=== PATIENT | female | born 1940 | race Caucasian/White ===

== ENCOUNTER → 2020-06-07 11:09 | Outpatient (BNVA) | payer MEDICARE, SELFPAY | PROVIDERS: PCP Internal Medicine; Visit Provider Surgery | DX: R91.1 Solitary pulmonary nodule (principal); Z88.1 Allergy status to other antibiotic agents; Z88.5 Allergy status to narcotic agent; Z88.8 Allergy status to other drugs, medicaments and biological substances; Z79.82 Long term (current) use of aspirin; Z79.899 Other long term (current) drug therapy | CPT/HCPCS: 99205 ==

== ENCOUNTER 2020-06-13 16:17 | Outpatient (REF) | payer MEDICARE, SELFPAY ==
--- NOTE | 2020-06-13 | PFT_ITS ---
Forced vital capacity normal. FEV1 slightly reduced. [id number] and MVV are also slightly reduced. Post bronchodilator therapy, no significant change. Total lung capacity and residual volume normal. Diffusion capacity moderately decreased. CONCLUSION: Mild obstructive airway disorder. No response to bronchodilator therapy. Markedly decreased diffusion capacity may be partly due to COPD/pulmonary emphysema, but may also be due to pulmonary vascular disease or non-pulmonary factors. Clinical correlation recommended. Resting O2 saturation was normal. MD HILDA La/MODL / [id number]
== END 2020-06-13 16:18 | disposition home or self-care (01) ==
LOC: HO.RESP 16:17
PROVIDERS: PCP Internal Medicine; Visit Provider Surgery
DX: R91.1 Solitary pulmonary nodule (principal)
CPT/HCPCS: 94060; 94727; 94729

== ENCOUNTER 2020-07-05 10:43 | Outpatient (REF) | payer MEDICARE, SELFPAY ==
--- NOTE | 2020-07-05 10:54 | XR_ITS ---
EXAMINATION: XR CHEST CLINICAL INFORMATION: Acquired absence of lung. COMPARISON: Chest CTA dated 05/10/2020, PET/CT dated 05/28/2020. TECHNIQUE: 2 views of the chest were obtained. FINDINGS: Postsurgical changes are seen in the right apex with chain sutures and presumed adjacent scarring. The lungs otherwise clear. The heart is unremarkable. An aortic stent graft is seen within the tortuous/ectatic thoracic aorta. XR/XR chest 2V IMPRESSION: Postsurgical changes in the right apex without overt acute cardiopulmonary process.
== END 2020-07-05 10:44 | disposition home or self-care (01) ==
LOC: HO.XRAY 10:43
PROVIDERS: PCP Internal Medicine; Visit Provider Surgery
DX: R91.1 Solitary pulmonary nodule (principal); Z90.2 Acquired absence of lung [part of]; Z79.82 Long term (current) use of aspirin; Z79.899 Other long term (current) drug therapy
CPT/HCPCS: 71046; 99212

== ENCOUNTER → 2020-07-25 14:08 | Outpatient (BNVA) | payer MEDICARE, SELFPAY | PROVIDERS: PCP Internal Medicine; Visit Provider Hospitalist | DX: J44.9 Chronic obstructive pulmonary disease, unspecified (principal); J40 Bronchitis, not specified as acute or chronic; R91.1 Solitary pulmonary nodule; R04.2 Hemoptysis | CPT/HCPCS: 99212 ==

== ENCOUNTER → 2020-09-18 11:08 | Outpatient (BNVA) | payer MEDICARE, SELFPAY | PROVIDERS: PCP Internal Medicine; Visit Provider Hospitalist | DX: Z76.89 Persons encountering health services in other specified circumstances (principal) | CPT/HCPCS: 99212 ==

== ENCOUNTER 2020-09-19 14:03 | Inpatient (IN) | payer MEDICARE, SELFPAY ==
[2020-09-19] VITALS (9 sets, daily range): BP systolic 91–160; BP diastolic 37–75; PULSE 74–100; RESP 16–22; TEMP 36.9–37.4; O2SAT 85–97; BMI 29.5
--- NOTE | ~2020-09-19 | XR_ITS ---
EXAMINATION: XR CHEST CLINICAL INFORMATION: Shortness of breath. Hypoxia. COMPARISON: 07/05/2020 TECHNIQUE: Frontal view of the chest was obtained. FINDINGS: The lungs are well expanded. Bronchial wall thickening with mild interstitial prominence noted. No pleural effusion or pneumothorax. Suture line seen at the right upper lung. The cardiomediastinal silhouette is unchanged. Tortuous aorta with stent graft in place. XR/XR chest 1V IMPRESSION: Bronchial wall thickening with interstitial prominence noted which may represent edema versus small airways infectious/inflammatory process.
--- NOTE | ~2020-09-19 | FL_ITS ---
EXAMINATION: FL BARIUM SWALLOW CLINICAL INFORMATION: Pneumonia. Difficulty swallowing. COMPARISON: Previous chest CT scan most recent September 2020 TECHNIQUE: Barium swallow examination is performed using fluoroscopic evaluation in addition to multiple fluoroscopic spot views. The patient is imaged both upright and prone and using both thick and thin sulfate along with effervescent granules. The patient refused barium tablet. Fluoroscopy time: 1.9 minutes DAP: 11 Gycm2 Images: 61 saved fluoroscopic images. FINDINGS: The swallowing mechanism is normal. No aspiration or penetration is seen. The thoracic esophagus is dilated. There is abnormal esophageal motility with significant retrograde peristalsis. There is narrowing of the distal esophagus at the GE junction. Appearance is suggestive of achalasia. No reflux was observed with the patient in the upright or prone positions. The patient could not roll in the supine position lying down to fully evaluate for reflux. Again, patient refused barium tablet. Aortic stent graft is severe interstitial lung disease is noted.. FL/FL barium swallow IMPRESSION: Markedly dilated thoracic esophagus and abnormal esophageal motility. There is narrowing and beak like appearance of the distal thoracic esophagus at the GE junction. Appearances is suggestive of achalasia. The patient refused administration of barium tablet. There is marked retrograde peristalsis in the esophagus. Gastroesophageal reflux was not observed however the patient could not lie supine.
--- NOTE | ~2020-09-19 | CT_ITS ---
EXAMINATION: CTA CHEST PE STUDY CLINICAL INFORMATION: hemoptysis, hypoxia, elevated DDIMER COMPARISON: No pertinent prior studies are available for comparison. TECHNIQUE: Prior to contrast administration, noncontrast localization images were obtained. After the administration of 100 mL of Omnipaque 350 IV contrast, contiguous thin slice helical images were obtained through the thorax. Reformatted MIP images in the coronal and sagittal planes were obtained at the acquisition workstation. This CT examination was performed using dose optimization techniques as appropriate, variously including the following: *Automated exposure control *Adjustment of mA and/or kV according to patient size (this includes techniques or standardized protocols for targeted exams where dose is matched to indication/reason for exam; i.e. extremities or head) *Use of iterative reconstruction technique DLP: 1270 mGy-cm. FINDINGS: The bolus timing on this study was acceptable for visualization of the pulmonary arterial tree. There are no intraluminal pulmonary arterial filling defects present to suggest central pulmonary embolism. There is new patchy bilateral airspace disease more so in the dependent aspects of the lungs. This is superimposed on extensive emphysematous changes bilaterally. No abnormal pulmonary nodules or masses are appreciated. No significant hilar or mediastinal adenopathy. There is no evidence of pleural effusion or pneumothorax. Aortic stent graft is again noted with appearance similar to the prior study although contrast bolus timing on the current study was not readily opacify the aorta. The esophagus is distended containing air and debris suggesting airspace disease in the lung parenchyma may be due to aspiration. This be clinically correlated. Otherwise the mediastinum is unremarkable. There is no pericardial effusion or pericardial thickening. Limited evaluation of the upper abdominal viscera is unremarkable. CT/CT angio chest PE protocol IMPRESSION: New patchy bilateral airspace disease suggesting infectious etiology or aspiration. Esophagus is distended with air and debris is possible aspiration source. This should be clinically correlated. No evidence for central pulmonary emboli. Known thoracic aortic stent graft and underlying extensive emphysematous changes. VTE: Negative
--- NOTE | 2020-09-19 14:30 | ECG_ITS ---
Test Reason : SHORT OF BREATH Blood Pressure : / mmHG Vent. Rate : 081 BPM Atrial Rate : 081 BPM P-R Int : 170 ms QRS Dur : 108 ms QT Int : 418 ms P-R-T Axes : 078 051 -55 degrees QTc Int : 485 ms Sinus rhythm with Premature atrial complexes T wave abnormality, consider inferior ischemia T wave abnormality, consider anterolateral ischemia Prolonged QT Abnormal ECG No previous ECGs available Referred By: Linh Ventura Electronically Signed By:ALEIDA JALLOH
--- NOTE | 2020-09-19 14:37 | ED.SOB ---
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 She reports she has had a significant decline in her breathing since her nodule resection in June. She has been on oxygen since. She follow with Dr. Arrington at [facility] who saw her yesterday - she was not feeling well & plan was for bronchoscopy. She was found hypoxic to mid 80s on EMS arrival today on her baseline 2L NC. MD elicited complaint: shortness of breath Related Data Home Medications Medication Instructions Recorded Confirmed aspirin 81 mg tablet,delayed 81 mg PO DAILY 06/07/20 09/19/20 release cetirizine 10 mg capsule 10 mg PO DAILY cap 06/07/20 09/19/20 levothyroxine 88 mcg tablet 88 mcg PO DAILY 06/07/20 09/19/20 lifitegrast 5 % eye drops in a 1 drp OPHTHALMIC (EYE) BID 06/07/20 09/19/20 dropperette magnesium glycinate 100 mg tablet 100 mg PO DAILY 06/07/20 09/19/20 mecobalamin (vitamin B12) 1,000 1,000 mcg PO DAILY 06/07/20 09/19/20 mcg chewable tablet pantoprazole 40 mg tablet,delayed 40 mg PO DAILY 06/07/20 09/19/20 release pyridoxine (vitamin B6) 100 mg 50 mg PO BID 06/07/20 09/19/20 tablet turmeric 400 mg capsule mg PO 06/07/20 09/18/20 rivaroxaban 20 mg tablet 20 mg PO DAILY@1700 07/25/20 09/19/20 albuterol sulfate [ProAir HFA] 2 puff INHALATION Q4H PRN 09/19/20 09/19/20 alprazolam 0.25 mg PO BID PRN 09/19/20 09/19/20 carvedilol 6.25 mg PO BID 09/19/20 09/19/20 conjugated estrogens [Premarin] 1.5 g VAGINAL BEDTIME 09/19/20 09/19/20 fluticasone propionate 2 spray INTRANASAL DAILY 09/19/20 09/19/20 tiotropium-olodaterol [Stiolto 2 puff INHALATION DAILY 09/19/20 09/19/20 Respimat] Allergies Allergy/AdvReac Type Severity Reaction Status Date / Time azithromycin Allergy Severe Vomiting Verified 09/18/20 18:49 Morphine Allergy Severe Vomiting Uncoded 09/19/20 14:16 Opiods Allergy Severe Vomiting Uncoded 09/19/20 14:16 percocet Allergy Severe Vomiting Uncoded 09/19/20 14:16 Percodan Allergy Severe Vomiting Uncoded 09/19/20 14:16 Tylenol #3 Allergy Severe Vomiting Uncoded 09/19/20 14:16 Review of Systems Review of Systems: Constitutional: + Fever, No Chills ENT/Mouth: No sore throat, No Rhinorrhea, No Swallowing Difficulty Cardiovascular: No Chest Pain, + SOB, No Orthopnea, No Edema Respiratory: + Cough, + Sputum, No Wheezing, + dyspnea, +hemoptysis Gastrointestinal: + Nausea, No Vomiting, No Diarrhea, No abdominal Pain Genitourinary: No Dysuria, No Urinary Frequency, No Hematuria Musculoskeletal: No joint pain, No Myalgias Skin: No Skin Lesions, No rash Neuro: No Weakness, No Numbness, No Dizziness, +Headache Psych: + Anxiety/Panic, + Depression Heme/Lymph: No Bruising, No Lymphadenopathy Endocrine: No Polyuria, No Polydipsia [facility] Past Medical History Medical History (Updated 09/18/20 @ 18:56 by Maulik Arrington MD) Bronchitis Chronic respiratory failure COPD (chronic obstructive pulmonary disease) Hemoptysis Pneumonia Pulmonary nodule Social History Social History (Updated 07/25/20 @ 14:34 by Saloni Tolliver MA) Alcohol intake: never Smoking Status: Former smoker Use of substances other than those prescribed or required for medical reasons: No Advance Directives: No Advance Directives Information Provided: No Physical Exam Vital Signs: Vital Signs: Last Vital Signs Temp 99.4 F 09/19/20 14:10 Pulse 92 09/19/20 16:04 Resp 22 H 09/19/20 16:04 BP 107/41 L 09/19/20 16:04 Pulse Ox 93 09/19/20 16:04 Body Mass Index 29.5 Appearance: Alert. Oriented X3. Mild respiratory distress. Eyes: Pupils equal, round and reactive to light. ENT: Pharynx normal. Neck: Normal inspection. Neck supple. CVS: Normal heart rate and rhythm. Pulses normal. Respiratory: Mild respiratory distress w/ RR 22 - coarse thoughout, decreased at bilateral bases. Abdomen: Soft and nontender. +BS x4 Skin: Skin warm and dry. Normal skin color. Normal skin turgor. No rashes. Extremities: No lower extremity edema. Negative Izabella's sign. Neuro: Oriented X 3. No motor deficit. No sensory deficit. Course Course Course Narrative: 80 y/o female with O2 dependent COPD, HFpEF, PAF noted on Loop monitor on Xarelto, CAD with recent NSTEMI and PNA admission at [facility] presenting with SOB, productive cough and hypoxia. 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 Concern for ongoing underlying fungal infection. Weight loss, generally feeling unwell for months. Will get EKG, CXR, labs, COVID swab. Anticipate admission. She is saturating 93% on 4L NC, baseline is 2L NC. Reevaluation(s) Reevaluation #1: Troponin elevated 127.6 - EKG Still pending. No chest pain at this time. She is already on ASA, BB and anticoagulation. Known hx CAD on recent cardiac cath. Given hemoptysis, hypoxia will proceed with CT scan with contrast to further evaluate. Will need to be admitted, likely pulm consult and bronch. IV Vanco/Zosyn ordered for ?HCAP vs bronchitis, WBC 17. ?add antifungal, will see what CT scan shows. Signed out to Linh LARA. MDM - SOB/Dyspnea Differential Diagnosis Differential diagnosis: Likely acute exacerbation of chronic obstructive airways disease, pneumonia, pulmonary embolism, pleural effusion and anemia Lab Data Result diagrams: 09/19/20 15:08 09/19/20 15:08 Labs: Lab Results 09/19/20 09/19/20 09/19/20 Range/Units 15:08 15:08 15:08 WBC 17.3 H (4.8-10.8) X10*3/uL RBC 3.93 L (4.20-5.50) X10*6/uL Hgb 9.5 L (12.0-16.0) g/dl Hct 31.1 L (37-47) % MCV 79.1 L (80-98) fL MCH 24.2 L (27.0-33.0) pg MCHC 30.5 L (31.0-35.0) g/dl RDW 15.6 (11.0-16.0) % Plt Count 467 H (160-400) X10*3/uL MPV 10.8 (9.4-12.3) fL Immature Gran % (Auto) 0.6 H (0.0-0.4) % Neut % (Auto) 86.0 H (45-73) % Lymph % (Auto) 5.2 L (20-40) % [place] % (Auto) 7.8 (2-11) % Eos % (Auto) 0.1 (0-4) % Baso % (Auto) 0.3 (0-2) % Lymph # (Auto) 0.9 L (1.2-4.9) X10*3/uL [place] # (Auto) 1.4 H (0.1-1.2) X10*3/uL Eos # (Auto) 0.0 (0.0-0.4) X10*3/uL Baso # (Auto) 0.1 (0.0-0.2) X10*3/uL Abs Immat Gran (auto) 0.10 H (0.00-0.03) X10*3/uL Absolute Neuts (auto) 14.9 H (2.0-8.3) X10*3/uL Absolute Nucleated RBC 0.000 (0.0-0.012) X10*3/uL Nucleated RBC % (auto) 0.0 (0.0-0.2) /100WBC PT (10.8-13.0) SEC INR (0.9-1.1) APTT (24.1-38.0) SEC D-Dimer NG/ML Lactic Acid 1.5 (0.5-2.0) mmol/L Troponin I High Sens 127.6 H (<3.5-17.0) ng/L B-Natriuretic Peptide 559 H (<100) pg/mL Urine Color Urine Appearance Urine pH (5.0-8.0) Ur Specific [place] (1.005-1.025) Urine Protein (NEG-TRACE) MG/DL Urine Glucose (UA) (NEG) MG/DL Urine Ketones (NEG) MG/DL Urine Blood (NEG) Urine Nitrite (NEG) Ur Leukocyte Esterase (NEG) Urine RBC (0) /HPF Urine WBC (0-4) /HPF Ur Squamous Epith Cells /LPF Urine Bacteria /LPF Urine Yeast /HPF Coronavirus (PCR) (Negative) Influenza Type A (PCR) (Negative) Influenza Type B (PCR) (Negative) RSV RNA Qual (PCR) (Negative) 09/19/20 09/19/20 09/19/20 Range/Units 15:43 15:43 15:51 WBC (4.8-10.8) X10*3/uL RBC (4.20-5.50) X10*6/uL Hgb (12.0-16.0) g/dl Hct (37-47) % MCV (80-98) fL MCH (27.0-33.0) pg MCHC (31.0-35.0) g/dl RDW (11.0-16.0) % Plt Count (160-400) X10*3/uL MPV (9.4-12.3) fL Immature Gran % (Auto) (0.0-0.4) % Neut % (Auto) (45-73) % Lymph % (Auto) (20-40) % [place] % (Auto) (2-11) % Eos % (Auto) (0-4) % Baso % (Auto) (0-2) % Lymph # (Auto) (1.2-4.9) X10*3/uL [place] # (Auto) (0.1-1.2) X10*3/uL Eos # (Auto) (0.0-0.4) X10*3/uL Baso # (Auto) (0.0-0.2) X10*3/uL Abs Immat Gran (auto) (0.00-0.03) X10*3/uL Absolute Neuts (auto) (2.0-8.3) X10*3/uL Absolute Nucleated RBC (0.0-0.012) X10*3/uL Nucleated RBC % (auto) (0.0-0.2) /100WBC PT 19.8 H (10.8-13.0) SEC INR 1.7 H (0.9-1.1) APTT 37.0 (24.1-38.0) SEC D-Dimer 483 NG/ML Lactic Acid (0.5-2.0) mmol/L Troponin I High Sens (<3.5-17.0) ng/L B-Natriuretic Peptide (<100) pg/mL Urine Color YELLOW Urine Appearance CLEAR Urine pH 6.0 (5.0-8.0) Ur Specific [place] 1.025 (1.005-1.025) Urine Protein NEG (NEG-TRACE) MG/DL Urine Glucose (UA) NEG (NEG) MG/DL Urine Ketones NEG (NEG) MG/DL Urine Blood TRACE (NEG) Urine Nitrite NEG (NEG) Ur Leukocyte Esterase NEG (NEG) Urine RBC 0-2 (0) /HPF Urine WBC 0 (0-4) /HPF Ur Squamous Epith Cells 1+ /LPF Urine Bacteria TRACE /LPF Urine Yeast TRACE /HPF Coronavirus (PCR) NEGATIVE (Negative) Influenza Type A (PCR) NEGATIVE (Negative) Influenza Type B (PCR) NEGATIVE (Negative) RSV RNA Qual (PCR) NEGATIVE (Negative) ECG Data Attestation: I personally reviewed and interpreted this ECG as follows: ECG interpretation date: 09/19/20 Interpretation: normal sinus rhythm with PAC's, t-wave inversions in lead II, III, aVF, V3-V6, QTC prolonged 485 Discharge Plan Discharge Prescriptions: No Action Premarin 0.625 mg/gram cream 1.5 g vaginal BEDTIME RF: 0 fluticasone propionate 50 mcg/actuation spray,suspension 2 spray intranasal DAILY RF: 0 alprazolam 0.25 mg Tablet 0.25 mg PO BID PRN (Reason: Anxiety) RF: 0 albuterol sulfate [ProAir HFA] 90 mcg/actuation Hfa Aerosol Inhaler 2 puff INHALATION Q4H PRN (Reason: Respiratory Distress) RF: 0 carvedilol 6.25 mg Tablet 6.25 mg PO BID RF: 0 Stiolto Respimat 2.5-2.5 mcg/actuation Mist 2 puff INHALATION DAILY RF: 0 pantoprazole 40 mg tablet,delayed release (DR/EC) 40 mg PO DAILY RF: 0 levothyroxine 88 mcg tablet 88 mcg PO DAILY RF: 0 Xiidra 5 % dropperette 1 drp ophthalmic (eye) BID RF: 0 aspirin [Adult Low Dose Aspirin] 81 mg tablet,delayed release (DR/EC) 81 mg PO DAILY RF: 0 B12 Active 1,000 mcg tablet,chewable 1,000 mcg PO DAILY RF: 0 turmeric 400 mg capsule PO RF: 0 magnesium glycinate 100 mg tablet 100 mg PO DAILY RF: 0 pyridoxine (vitamin B6) 100 mg tablet 50 mg PO BID RF: 0 Zyrtec 10 mg capsule 10 mg PO DAILY RF: 0 Xarelto 20 mg tablet 20 mg PO DAILY@1700 RF: 0
[2020-09-19 15:52] LABS: MANUAL DIFF FLAG NO
[2020-09-19 15:56] LABS: Basophils Absolute Auto 0.1 X10*3/uL (0.0-0.2); Basophils Percent Auto 0.3 % (0-2); Eosinophils Percent Auto 0.1 % (0-4); Hematocrit 31.1 % (37-47); Hemoglobin 9.5 g/dl (12.0-16.0); Imm Gran Pct Auto 0.6 % (0.0-0.4); Lymphocytes Absolute Auto 0.9 X10*3/uL (1.2-4.9); Lymphocytes Percent Auto 5.2 % (20-40); Mean Corpuscular HGB Conc 30.5 g/dl (31.0-35.0); Mean Corpuscular Hemoglobin 24.2 pg (27.0-33.0); Mean Corpuscular Volume 79.1 fL (80-98); Mean Platelet Volume 10.8 fL (9.4-12.3); Monocytes Absolute Auto 1.4 X10*3/uL (0.1-1.2); Monocytes Percent Auto 7.8 % (2-11); Neutrophils Absolute Auto 14.9 X10*3/uL (2.0-8.3); Platelet Count 467 X10*3/uL (160-400); Red Blood Count 3.93 X10*6/uL (4.20-5.50); Red Cell Distribution Width 15.6 % (11.0-16.0); White Blood Count 17.3 X10*3/uL (4.8-10.8)
[2020-09-19 15:58] LABS: Appearance Urine CLEAR; Color Urine YELLOW; Glucose Urine UA NEG (NEG); Leukocyte Esterase Urine NEG (NEG); Nitrite Urine NEG (NEG); Specific Gravity - Urine 1.025 (1.005-1.025); Urine Blood TRACE (NEG); Urine Ketones NEG (NEG); Urine Protein NEG (NEG-TRACE)
[2020-09-19] MEDS: 0.9 % Sodium Chloride 1,000 ML 999 ML IVCONT (15:58)
[2020-09-19] MEDS: Acetaminophen 325 MG TABLET 650 MG PO (15:59)
[2020-09-19 16:02] LABS: INTERNATIONAL NORM RATIO 1.7 (0.9-1.1); Prothrombin Time 19.8 SEC (10.8-13.0)
[2020-09-19 16:05] LABS: Bacteria Urine TRACE /LPF; RBC Urine 0-2 /HPF (0); Squamous Epithelial Cell Urine 1+ /LPF; WBC Urine 0 /HPF (0-4)
[2020-09-19 16:05] LABS: D Dimer 483 NG/ML
[2020-09-19 16:19] LABS: Lactic Acid 1.5 mmol/L (0.5-2.0)
[2020-09-19] MEDS: ondansetron HCL 4 MG/2 ML VIAL IVPUSH (16:27)
[2020-09-19] MEDS: Piperacillin Sodium/Tazobactam 4.5 GM in 0.9 % Sodium Chloride 100 ML IV (16:27)
[2020-09-19 16:36] LABS: B Type Natriuretic Peptide 559 pg/mL (<100); Troponin-I High Sensitivity 127.6 ng/L (<3.5-17.0)
[2020-09-19 16:42] LABS: Influenza A PCR NEGATIVE (Negative); Influenza B PCR NEGATIVE (Negative); Resp Syncy Virus RNA Qual PCR NEGATIVE (Negative); SARS COV2 PCR INHOUSE NEGATIVE (Negative)
[2020-09-19] MEDS: methylPREDNISolone Sod Succ/PF 125 MG/2 ML VIAL 80 MG IVPUSH (17:06)
[2020-09-19] MEDS: vancomycin HCL 1,000 MG in 0.9 % Sodium Chloride 250 ML 270 MG IV (17:09)
[2020-09-19] MEDS: Albuterol Sulfate (0.083%) 2.5 MG/3 ML VIAL.NEB 5 MG INHALE (17:40)
[2020-09-19 19:08] LABS: Alanine Aminotransferase 7 U/L (0-31); Albumin Level 3.2 g/dL (3.5-5.0); Alkaline Phosphatase 44 U/L (39-117); Anion Gap 11 (12-20); Aspartate Amino Transferase 18 U/L (5-31); Bilirubin Direct 0.4 mg/dL (0.0-0.5); Bilirubin Total 0.6 mg/dL (0.0-1.0); Blood Urea Nitrogen 11 mg/dL (9-16); Calcium 7.8 mg/dL (8.4-10.2); Carbon Dioxide 27 mmol/L (22-29); Chloride 103 mmol/L (96-108); Creatinine Clr Calc Pharmacy 63.2; Estimated Glomerular Filt Rate > 60; Glucose Random 120 mg/dL (60-115); Magnesium 1.8 mg/dL (1.6-2.6); Potassium 4.3 mmol/L (3.3-5.1); Sodium 137 mmol/L (135-145); Total Protein 5.8 g/dL (6.5-8.0)
[2020-09-19 19:27] LABS: Procalcitonin 0.94 ng/mL
--- NOTE | 2020-09-19 19:27 | PC.NURSE ---
Report taken from amanda Weeks RN resuming care. Pt off unit for CTA. Plan for repeat Trop and T&S when pt returns.
[2020-09-19] MEDS: iohexoL 350 MG/ML 100 ML INFUS..BTL IV (19:42)
--- NOTE | 2020-09-19 20:15 | PC.NURSE ---
Pt returns from CT on hospital bed without incident. Pt resting in NAD on O2 via NC @ 4 lpm satting @ 97%. Per pt, her normal O2 sat while on O2 @ 2 lpm while at home is 92%. Pt decreased to 2.5 lpm while this RN remains in room to monitor O2 sat. O2 sat remains @ 94%. Pt reports no SOB at this time, states her breathing is at her baseline. Pt requesting food/drink, per SUBSTATION OPERATOR APPRENTICE, pt is able to eat. Pt provided with Tuna and hot tea per request. VSS at this time. Repeat Troponin obtained and sent. Continue to monitor.
[2020-09-19 20:55] LABS: Troponin-I High Sensitivity 460.5 ng/L (<3.5-17.0)
--- NOTE | 2020-09-19 21:41 | ECG_ITS ---
Test Reason : SOB Blood Pressure : / mmHG Vent. Rate : 072 BPM Atrial Rate : 072 BPM P-R Int : 192 ms QRS Dur : 110 ms QT Int : 458 ms P-R-T Axes : 047 042 -52 degrees QTc Int : 501 ms Sinus rhythm with Premature atrial complexes T wave abnormality, consider inferior ischemia T wave abnormality, consider anterolateral ischemia Prolonged QT Abnormal ECG When compared with ECG of 19-SEP-2020 17:06, No significant change was found Referred By: Linh Ventura Electronically Signed By:ALEIDA JALLOH
--- NOTE | 2020-09-19 22:16 | PC.NURSE ---
SOLAR DEVELOPMENT ENGINEER at bedside discussing treatment and plan of care due to elevated Troponin. Plan for repeat Trop and admission. VSS. Pt denies CP/SOB at this time, pt offering no complaints, resting in bed, watching TV in NAD. Call harvey within reach, continue to monitor.
[2020-09-19 23:01] LABS: Troponin-I High Sensitivity 344.3 ng/L (<3.5-17.0)
--- NOTE | 2020-09-19 23:27 | P.HPHOSP_ITS ---
History of Present Illness Date of Service: 09/19/20 Chief Complaint: Shortness of breath 80-year-old female with a past medical history of hypertension, hyperlipidemia, COPD on 2 L of home oxygen, diastolic CHF,AAA s/pEVAR, history of right lung nodule resection-pathology consistent with fungal; CAD, recent NSTEMI with admission to [facility] and had cardiac catheterization on 09/06/2020-medically managed with heparin drip for 48 hours presented to the hospital with a chief complaint of shortness of breath and generalized weakness. Denies any chest pain palpitations lightheadedness or dizziness. After patient was seen by Dr. Murphy Willingham from pulmonology-plan for bronchoscopy. Patient also complains of cough with brownish sputum and noticed blood-tinged sputum as well. Review of all other systems is negative except mentioned above ER course: Per ER team patient's COVID negative, CT angio showed no evidence of pulmonary embolism but noticed patchy infiltrates consistent with pneumonia. Patient troponin was elevated; EKG was nonischemic except for T-wave inversions in inferior leads and V3 V4 V5; ER team spoke to Dr. ko mahajan from Cardiology who recommended admission to the [facility] an echocardiogram in the morning. Follow-up troponin is trending down. [facility] Medical History (Updated 09/18/20 @ 18:56 by Maulik Arrington MD) Bronchitis Chronic respiratory failure COPD (chronic obstructive pulmonary disease) Hemoptysis Pneumonia Pulmonary nodule Social History (Updated 07/25/20 @ 14:34 by Saloni Tolliver MA) Alcohol intake: never Smoking Status: Former smoker Use of substances other than those prescribed or required for medical reasons: No Advance Directives: No Advance Directives Information Provided: No Meds Allergies Allergy/AdvReac Type Severity Reaction Status Date / Time azithromycin Allergy Severe Vomiting Verified 09/18/20 18:49 Morphine Allergy Severe Vomiting Uncoded 09/19/20 14:16 Opiods Allergy Severe Vomiting Uncoded 09/19/20 14:16 percocet Allergy Severe Vomiting Uncoded 09/19/20 14:16 Percodan Allergy Severe Vomiting Uncoded 09/19/20 14:16 Tylenol #3 Allergy Severe Vomiting Uncoded 09/19/20 14:16 Home Medications Medication Instructions Recorded Confirmed Type aspirin 81 mg tablet,delayed 81 mg PO DAILY 06/07/20 09/19/20 History release cetirizine 10 mg capsule 10 mg PO DAILY cap 06/07/20 09/19/20 History levothyroxine 88 mcg tablet 88 mcg PO DAILY 06/07/20 09/19/20 History lifitegrast 5 % eye drops in a 1 drp OPHTHALMIC (EYE) BID 06/07/20 09/19/20 History dropperette magnesium glycinate 100 mg tablet 100 mg PO DAILY 06/07/20 09/19/20 History mecobalamin (vitamin B12) 1,000 1,000 mcg PO DAILY 06/07/20 09/19/20 History mcg chewable tablet pantoprazole 40 mg tablet,delayed 40 mg PO DAILY 06/07/20 09/19/20 History release pyridoxine (vitamin B6) 100 mg 50 mg PO BID 06/07/20 09/19/20 History tablet turmeric 400 mg capsule mg PO 06/07/20 09/18/20 History rivaroxaban 20 mg tablet 20 mg PO DAILY@1700 07/25/20 09/19/20 History albuterol sulfate [ProAir HFA] 2 puff INHALATION Q4H PRN 09/19/20 09/19/20 History alprazolam 0.25 mg PO BID PRN 09/19/20 09/19/20 History carvedilol 6.25 mg PO BID 09/19/20 09/19/20 History conjugated estrogens [Premarin] 1.5 g VAGINAL BEDTIME 09/19/20 09/19/20 History fluticasone propionate 2 spray INTRANASAL DAILY 09/19/20 09/19/20 History tiotropium-olodaterol [Stiolto 2 puff INHALATION DAILY 09/19/20 09/19/20 History Respimat] Physical Exam Vital Signs and Narrative: Vital Signs: Last Vital Signs Temp 98.5 F 09/19/20 18:39 Pulse 74 09/19/20 22:15 Resp 16 09/19/20 22:15 BP 127/54 L 09/19/20 22:15 Pulse Ox 97 09/19/20 22:15 Body Mass Index 29.5 Gen: Appears be in no acute distress; breathing comfortably on baseline supplemental oxygen of 2 L by nasal cannula. HEENT: NCAT, Moist mucosa. Pulmonary: Course breath sounds, fair air entry CVS: Normal S1-S2 Abdomen: BS+, Soft, Nontender Extremities: Warm well perfused Neuro: Alert and awake. Results Labs CBC and Chem 7: 09/19/20 15:08 09/19/20 18:38 Labs: Laboratory Results - last 24 hr 09/19/20 09/19/20 09/19/20 15:08 15:08 15:08 MCV 79.1 L MCH 24.2 L MCHC 30.5 L RDW 15.6 Plt Count 467 H MPV 10.8 Immature Gran % (Auto) 0.6 H Neut % (Auto) 86.0 H Lymph % (Auto) 5.2 L [place] % (Auto) 7.8 Eos % (Auto) 0.1 Baso % (Auto) 0.3 Lymph # (Auto) 0.9 L [place] # (Auto) 1.4 H Eos # (Auto) 0.0 Baso # (Auto) 0.1 Abs Immat Gran (auto) 0.10 H Absolute Neuts (auto) 14.9 H Absolute Nucleated RBC 0.000 Nucleated RBC % (auto) 0.0 PT INR APTT D-Dimer Anion Gap Cancelled Estim Creat Clear Calc Cancelled Estimated GFR Cancelled Random Glucose Cancelled Lactic Acid 1.5 Calcium Cancelled Magnesium Cancelled Total Bilirubin Cancelled Direct Bilirubin Cancelled AST Cancelled ALT Cancelled Alkaline Phosphatase Cancelled Troponin I High Sens B-Natriuretic Peptide Total Protein Cancelled Albumin Cancelled Procalcitonin Urine Color Urine Appearance Urine pH Ur Specific [place] Urine Protein Urine Glucose (UA) Urine Ketones Urine Blood Urine Nitrite Ur Leukocyte Esterase Urine RBC Urine WBC Ur Squamous Epith Cells Urine Bacteria Urine Yeast Coronavirus (PCR) Influenza Type A (PCR) Influenza Type B (PCR) RSV RNA Qual (PCR) 09/19/20 09/19/20 09/19/20 15:08 15:08 15:43 MCV MCH MCHC RDW Plt Count MPV Immature Gran % (Auto) Neut % (Auto) Lymph % (Auto) [place] % (Auto) Eos % (Auto) Baso % (Auto) Lymph # (Auto) [place] # (Auto) Eos # (Auto) Baso # (Auto) Abs Immat Gran (auto) Absolute Neuts (auto) Absolute Nucleated RBC Nucleated RBC % (auto) PT 19.8 H INR 1.7 H APTT 37.0 D-Dimer 483 Anion Gap Estim Creat Clear Calc Estimated GFR Random Glucose Lactic Acid Calcium Magnesium Total Bilirubin Direct Bilirubin AST ALT Alkaline Phosphatase Troponin I High Sens 127.6 H B-Natriuretic Peptide 559 H Total Protein Albumin Procalcitonin Cancelled Urine Color Urine Appearance Urine pH Ur Specific [place] Urine Protein Urine Glucose (UA) Urine Ketones Urine Blood Urine Nitrite Ur Leukocyte Esterase Urine RBC Urine WBC Ur Squamous Epith Cells Urine Bacteria Urine Yeast Coronavirus (PCR) Influenza Type A (PCR) Influenza Type B (PCR) RSV RNA Qual (PCR) 09/19/20 09/19/20 09/19/20 15:43 15:51 18:38 MCV MCH MCHC RDW Plt Count MPV Immature Gran % (Auto) Neut % (Auto) Lymph % (Auto) [place] % (Auto) Eos % (Auto) Baso % (Auto) Lymph # (Auto) [place] # (Auto) Eos # (Auto) Baso # (Auto) Abs Immat Gran (auto) Absolute Neuts (auto) Absolute Nucleated RBC Nucleated RBC % (auto) PT INR APTT D-Dimer Anion Gap 11 L Estim Creat Clear Calc 63.2 Estimated GFR > 60 Random Glucose 120 H Lactic Acid Calcium 7.8 L Magnesium 1.8 Total Bilirubin 0.6 Direct Bilirubin 0.4 AST 18 ALT 7 Alkaline Phosphatase 44 Troponin I High Sens B-Natriuretic Peptide Total Protein 5.8 L Albumin 3.2 L Procalcitonin Urine Color YELLOW Urine Appearance CLEAR Urine pH 6.0 Ur Specific [place] 1.025 Urine Protein NEG Urine Glucose (UA) NEG Urine Ketones NEG Urine Blood TRACE Urine Nitrite NEG Ur Leukocyte Esterase NEG Urine RBC 0-2 Urine WBC 0 Ur Squamous Epith Cells 1+ Urine Bacteria TRACE Urine Yeast TRACE Coronavirus (PCR) NEGATIVE Influenza Type A (PCR) NEGATIVE Influenza Type B (PCR) NEGATIVE RSV RNA Qual (PCR) NEGATIVE 09/19/20 09/19/20 09/19/20 18:38 20:04 22:15 MCV MCH MCHC RDW Plt Count MPV Immature Gran % (Auto) Neut % (Auto) Lymph % (Auto) [place] % (Auto) Eos % (Auto) Baso % (Auto) Lymph # (Auto) [place] # (Auto) Eos # (Auto) Baso # (Auto) Abs Immat Gran (auto) Absolute Neuts (auto) Absolute Nucleated RBC Nucleated RBC % (auto) PT INR APTT D-Dimer Anion Gap Estim Creat Clear Calc Estimated GFR Random Glucose Lactic Acid Calcium Magnesium Total Bilirubin Direct Bilirubin AST ALT Alkaline Phosphatase Troponin I High Sens 460.5 H D 344.3 H B-Natriuretic Peptide Total Protein Albumin Procalcitonin 0.94 Urine Color Urine Appearance Urine pH Ur Specific [place] Urine Protein Urine Glucose (UA) Urine Ketones Urine Blood Urine Nitrite Ur Leukocyte Esterase Urine RBC Urine WBC Ur Squamous Epith Cells Urine Bacteria Urine Yeast Coronavirus (PCR) Influenza Type A (PCR) Influenza Type B (PCR) RSV RNA Qual (PCR) Imaging Radiologist's Impressions: Impressions Chest X-Ray 09/19/20 14:30 IMPRESSION: Bronchial wall thickening with interstitial prominence noted which may represent edema versus small airways infectious/inflammatory process. Chest CTA 09/19/20 16:49 IMPRESSION: New patchy bilateral airspace disease suggesting infectious etiology or aspiration. Esophagus is distended with air and debris is possible aspiration source. This should be clinically correlated. No evidence for central pulmonary emboli. Known thoracic aortic stent graft and underlying extensive emphysematous changes. VTE: Negative Assessment and Plan (1) Pneumonia: Qualifiers: Laterality: right Lung location: upper lobe of lung Pneumonia type: due to unspecified organism Qualified Code(s): J18.9 - Pneumonia, unspecified organism Status: Acute 80-year-old female with a past medical history of hypertension, hyperlipidemia, atrial fibrillation on Xarelto, diastolic CHF, CAD-recent NSTEMI/cardiac catheterization on 09/06/2020; history of lung nodule with pathology report being fungal infection; AAA status post EVAR presented to the hospital today with a chief complaint of generalized weakness/increased s hortness of breath/cough with brownish sputum and occasional blood-tinged sputum. Noted to have pneumonia on the CT scan admitted to the hospital for further management. Health-care associated pneumonia: Will continue the patient on vanc and Zosyn Patient has history of fungal infection-will consult ID for further recommendations. Will also consult pulmonology for possible bronchoscopy. COVID-19 negative Blood-tinged sputum: Likely from retching. H&H stable. Will continue to monitor. Elevated troponins: Patient had recent NSTEMI and cardiac catheterization on 09/06/2020. Medically managed with heparin drip at [facility]. Currently troponin trending down. High troponins on presentation-unclear if trending down from NSTEMI from August 2020. Patient currently chest pain-free. ER team discussed with Cardiology and recommended admission to [facility]. Also mentioned can hold Xarelto given question hemoptysis. Atrial fibrillation: Currently rate controlled. Patient received Xarelto on 09/19/20. Will hold the dose on 09/20/2020 and evaluated by Cardiology in the morning. Also patient might need bronchoscopy. Diastolic CHF: Currently stable. Continue home medications. For all other chronic conditions, home medications will be continued Full code
[2020-09-20] VITALS (10 sets, daily range): BP systolic 140–173; BP diastolic 58–79; PULSE 71–89; RESP 15–21; TEMP 36.6–37; O2SAT 94–99
[2020-09-20] MEDS: 0.9 % Sodium Chloride Flush 3 ML SYRINGE IVFLUSH ×3 (00:15→16:26)
[2020-09-20] MEDS: Piperacillin Sodium/Tazobactam 3.375 GM in 0.9 % Sodium Chloride 50 ML IV ×5 (00:16→23:39)
--- NOTE | 2020-09-20 00:20 | PC.NURSE ---
Zosyn infusing per OCT. Pt scheduled for Vanco @ 2329 but recently received it 1829, this RN unable to remove it from the pyxis at this time. Pt assisted OOB and onto commode, voiding easily. Hospitalist at bedside for eval. VSS. Continue to monitor.
--- NOTE | 2020-09-20 00:36 | PC.NURSE ---
Pharmacy contacted regarding second dose of Vanco. Pt also requesting PM Coreg, pharmacy aware, plan to adjust order so pt does not miss PM dose.
[2020-09-20] MEDS: carvediloL 6.25 MG TABLET PO ×3 (01:04→20:54)
--- NOTE | 2020-09-20 05:38 | PC.NURSE ---
Medicated with ABX per OCT. Pt resting easily in bed, offers no complaints at this time. Pt speaking in full sentences in NAD. VSS. Continue to monitor.
--- NOTE | 2020-09-20 06:32 | CA_ITS ---
Transthoracic Echocardiogram Patient (Last, First, Middle): Monica Stewart, Gender: Female Date of : 1940 Age: 80 Procedure Date: 09/20/2020 Procedure Type: Transthoracic Echocardiogram Location: ER Height: 162.56 cm Weight: 78.02 kg BSA: 1.83 m2 Heart Rate: bpm BP: 140 / 58 mmHg Life [employer] Specialist: ARPIT Referring MD: Jules Fletcher MD Symptoms: high troponin Study Quality: Fair ECG Rhythm: Sinus Conclusions: - The left ventricular systolic function is mildly decreased. The visually estimated ejection fraction is between 45-50%. - The apical septum and mid inferoseptal segments are hypokinetic. - The left atrium is severely dilated. - There is mild aortic valve stenosis. - There is severe mitral annular calcification. - Mild pulmonary hypertension is present. Findings Left Ventricle Normal left ventricular cavity size. There is mildly increased left ventricular wall thickness. The left ventricular systolic function is mildly decreased. The visually estimated ejection fraction is between 45-50%. There is evidence of regional wall motion abnormalities. E/E prime ratio is >15, consistent with elevated filling pressures. Evidence suggests grade II (moderate) diastolic dysfunction. Focal hypertrophy of the basal septum. Wall Motion Rest Echo Findings The apical septum and mid inferoseptal segments are hypokinetic. Right Ventricle Normal right ventricular cavity size and systolic function. Atria The left atrium is severely dilated. The right atrium is normal in size. Aortic Valve There is moderate calcification of the aortic valve. There is mild aortic valve stenosis. The peak aortic velocity is 2.59 m/s with a calculated peak gradient of 27 mmHg. The mean gradient is 15 mmHg. The aortic valve area is 1.75 cm2. There is mild aortic valve regurgitation. Mitral Valve There is severe mitral annular calcification. There is mild mitral valve regurgitation. Mean gradient across the mitral valve 7 mm Hg at 65/Min. Doubt any significant mitral stenosis. Pulmonic Valve The pulmonic valve was not well visualized. Tricuspid Valve There is trace tricuspid valve regurgitation. The right ventricular systolic pressure is 44 mmHg. Mild pulmonary hypertension is present. Great Vessels The asc aorta and aortic arch are normal in size. Venous The inferior vena cava is normal in size and collapses greater than 50% with inspiration. Pericardium/Pleural There is no evidence of pericardial effusion. Prior Study Comparison No prior study available for comparison. Measurements 2D Linear Measurements IVSd: 1.26 0.6-0.9/0.6-1.0 cm LVIDd: 3.45 3.9-5.3/4.2-5.9 cm LVIDd Index: 1.89 2.4-3.2/2.2-3.1 cm/m2 LVIDs: 2.38 2.0-3.6 cm LVPWd: 1.25 0.7-1.1 cm Ao Root: 3.50 2.1-3.5 cm LA Diam: 4.60 2.7-3.8/3.0-4.0 cm LAIDs Index: 2.51 1.5-2.3 cm/m2 LV Mass: 177.47 67-162/88-224 g LV Mass Index: 96.98 43-95/49-115 g/m2 LVOT Diam: 2.00 3.0+(-)1.3 cm 2D Systolic Function EF 4C: 53.30 >55% EF 2C: 45.00 >55% EF BiP: 49.90 >55% Mitral Valve MV VTI: 0.52 MV Pk Wei: 1.94 MV Mn Wei: 1.21 MV Pk Grad: 15.00 MV Mn Grad: 7.00 MV Pk E: 2.14 MV PK A: 1.08 MV Decel Time: 175.00 E/A: 2.00 E'Lateral: 6.53 E'Medial: 3.70 E/E' Med: 57.80 E/E' Lat: 32.80 PHT: 77.00 MVA PHT: 2.86 MVA Continuity: 2.04 Decel Arthur: 7.37 Aortic Valve AoV Pk Wei: 2.59 AoV Mn Wei: 1.82 AoV VTI: 0.61 AoV Pk Grad: 27.00 Aov Mn Grad: 15.00 MIHAI Cont.VTI: 1.75 AI Pk Wei: 4.13 AI Arthur: 2.98 LVOT LVOT Pk Wei: 1.42 LVOT Mn Wei: 0.93 LVOT VTI: 0.34 LVOT Pk Grad: 8.00 LVOT Mn Grad: 4.00 LVOT Diam: 2.00 LVOT Area: 3.14 Diastolic Function MV Pk E: 2.14 MV Pk A: 1.08 E/A: 2.00 E'Medial: 3.70 E/E' Med: 57.80 E' Laterial: 6.53 E/E' Lat: 32.80 Tricuspid Valve TR Pk Wei: 2.99 TR Pk Grad: 36.00 RA Press: 8.00 RVSP: 44.00 Great Vessels Aorta Ao Root-2D: 3.50 2.0-3.7 cm Ao Asc: 3.40 2.1-3.4 cm Ao Arch: 2.90 Updated in Other Vendor System with Status of Final Gildardo Garay MD electronically signed on 09/20/2020 4:40:10 PM with status of Final
[2020-09-20] MEDS: Levothyroxine Sodium 88 MCG TABLET PO (07:52)
[2020-09-20] MEDS: Aspirin Enteric Coated 81 MG TABLET.DR PO (08:01)
[2020-09-20] MEDS: Loratadine 10 MG TABLET PO (08:01)
--- NOTE | 2020-09-20 09:55 | PM.CNCAR ---
History of Present Illness History of Present Illness Date of Service: 09/20/20 Chief complaint: PNA Narrative: This is a cardiology consultation regarding elevated troponins. She has numerous medical comorbidities. She was recently at [facility] for any ammonia. At that time, it appears that she underwent cardiac catheterization based on an abnormal echocardiogram showing diminished LVEF between 35-45%. At that time, she had 2 vessel disease but she was recommended to just have medical management as she had no angina whatsoever. 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 Overall, from the cardiac standpoint she is not having any chest pain type symptoms. Currently admitting symptoms or shortness of breath and generalized weakness. She also has slight amount of hemoptysis/blood-tinged sputum. Review of Systems Review of Systems: Yes all other systems are reviewed and are negative Constitutional: Constitutional: Reports weakness Cardiovascular: Cardiovascular: Reports as per HPI, Reports no additional cardiovascular complaints, Denies acrocyanosis, Denies cool extremities, Denies painful fingertips, Denies chest pain, Denies chest pain at rest, Denies diaphoresis, Denies syncope, Denies irregular heart rhythm, Denies claudication, Denies leg edema, Denies lightheadedness, Denies palpitations and Reports dyspnea Respiratory: Respiratory: Reports dyspnea Neurologic: Denies syncope and Reports weakness Endocrine: Endocrine: Denies palpitations [facility] Past Medical History Medical History (Updated 09/20/20 @ 10:07 by Gildardo Garay MD) Atherosclerotic cardiovascular disease Bronchitis Chronic heart failure with preserved ejection fraction (HFpEF) Chronic respiratory failure COPD (chronic obstructive pulmonary disease) Descending thoracic aortic aneurysm Hemoptysis PAF (paroxysmal atrial fibrillation) Pneumonia Pulmonary nodule Family History Pertinent family history: No significant family history pertinent. Social History Social History (Updated 07/25/20 @ 14:34 by Saloni Tolliver MA) Alcohol intake: never Smoking Status: Former smoker Use of substances other than those prescribed or required for medical reasons: No Advance Directives: No Advance Directives Information Provided: No Meds Allergies Allergy/AdvReac Type Severity Reaction Status Date / Time azithromycin Allergy Severe Vomiting Verified 09/18/20 18:49 Morphine Allergy Severe Vomiting Uncoded 09/19/20 14:16 Opiods Allergy Severe Vomiting Uncoded 09/19/20 14:16 percocet Allergy Severe Vomiting Uncoded 09/19/20 14:16 Percodan Allergy Severe Vomiting Uncoded 09/19/20 14:16 Tylenol #3 Allergy Severe Vomiting Uncoded 09/19/20 14:16 Home Medications Medication Instructions Recorded Confirmed Type aspirin 81 mg tablet,delayed 81 mg PO DAILY 06/07/20 09/19/20 History release cetirizine 10 mg capsule 10 mg PO DAILY cap 06/07/20 09/19/20 History levothyroxine 88 mcg tablet 88 mcg PO DAILY 06/07/20 09/19/20 History lifitegrast 5 % eye drops in a 1 drp OPHTHALMIC (EYE) BID 06/07/20 09/19/20 History dropperette magnesium glycinate 100 mg tablet 100 mg PO DAILY 06/07/20 09/19/20 History mecobalamin (vitamin B12) 1,000 1,000 mcg PO DAILY 06/07/20 09/19/20 History mcg chewable tablet pantoprazole 40 mg tablet,delayed 40 mg PO DAILY 06/07/20 09/19/20 History release pyridoxine (vitamin B6) 100 mg 50 mg PO BID 06/07/20 09/19/20 History tablet turmeric 400 mg capsule mg PO DAILY 06/07/20 09/18/20 History rivaroxaban 20 mg tablet 20 mg PO DAILY@1700 07/25/20 09/19/20 History albuterol sulfate [ProAir HFA] 2 puff INHALATION Q4H PRN 09/19/20 09/19/20 History alprazolam 0.25 mg PO BID PRN 09/19/20 09/19/20 History carvedilol 6.25 mg PO BID 09/19/20 09/19/20 History conjugated estrogens [Premarin] 1.5 g VAGINAL BEDTIME 09/19/20 09/19/20 History fluticasone propionate 2 spray INTRANASAL DAILY 09/19/20 09/19/20 History tiotropium-olodaterol [Stiolto 2 puff INHALATION DAILY 09/19/20 09/19/20 History Respimat] Physical Exam Vital Signs: Vital Signs: Last Vital Signs Temp 97.9 F 09/20/20 00:17 Pulse 76 09/20/20 08:02 Resp 17 09/20/20 07:57 BP 149/66 H 09/20/20 08:02 Pulse Ox 96 09/20/20 07:57 Body Mass Index 29.5 Const: General: cooperative, comfortable and no acute distress Orientation/consciousness: patient oriented x3 HENMT: Other: Unremarkable Neck: Neck: Yes normal visual inspection Chest: Chest palpation & inspection: normal inspection of the chest Resp: Auscultation: clear to auscultation bilaterally, crackles and no wheezes Cardio: Jugular venous distension: no JVD Palpation: normal PMI Heart sounds: S1 normal heart sound present, S2 normal heart sound present, no gallops, Murmur heart sound present systolic at the apex, at the left sternal border and at the right sternal border and no rubs GI: Palpation (GI): Soft to palpation Back/Spine/Pelvis: Other: unremarkable Skin: General skin exam: no rashes or lesions noted Neuro: General: patient oriented x3 Extrem: General: Yes no clubbing, cyanosis or edema Psych: Mental Status: mental status grossly normal Results Labs and Meds Result diagrams: 09/19/20 15:08 09/19/20 18:38 Lab results: Laboratory Results - last 24 hr 09/19/20 09/19/20 09/19/20 15:08 15:08 15:08 WBC 17.3 H RBC 3.93 L Hgb 9.5 L Hct 31.1 L MCV 79.1 L MCH 24.2 L MCHC 30.5 L RDW 15.6 Plt Count 467 H MPV 10.8 Immature Gran % (Auto) 0.6 H Neut % (Auto) 86.0 H Lymph % (Auto) 5.2 L Bacon % (Auto) 7.8 Eos % (Auto) 0.1 Baso % (Auto) 0.3 Lymph # (Auto) 0.9 L Bacon # (Auto) 1.4 H Eos # (Auto) 0.0 Baso # (Auto) 0.1 Abs Immat Gran (auto) 0.10 H Absolute Neuts (auto) 14.9 H Absolute Nucleated RBC 0.000 Nucleated RBC % (auto) 0.0 PT INR APTT D-Dimer Sodium Cancelled Potassium Cancelled Chloride Cancelled Carbon Dioxide Cancelled Anion Gap Cancelled BUN Cancelled Creatinine Cancelled Estim Creat Clear Calc Cancelled Estimated GFR Cancelled Random Glucose Cancelled Lactic Acid 1.5 Calcium Cancelled Magnesium Cancelled Total Bilirubin Cancelled Direct Bilirubin Cancelled AST Cancelled ALT Cancelled Alkaline Phosphatase Cancelled Troponin I High Sens B-Natriuretic Peptide Total Protein Cancelled Albumin Cancelled Procalcitonin Urine Color Urine Appearance Urine pH Ur Specific [place] Urine Protein Urine Glucose (UA) Urine Ketones Urine Blood Urine Nitrite Ur Leukocyte Esterase Urine RBC Urine WBC Ur Squamous Epith Cells Urine Bacteria Urine Yeast Coronavirus (PCR) Influenza Type A (PCR) Influenza Type B (PCR) RSV RNA Qual (PCR) 09/19/20 09/19/20 09/19/20 15:08 15:08 15:43 WBC RBC Hgb Hct MCV MCH MCHC RDW Plt Count MPV Immature Gran % (Auto) Neut % (Auto) Lymph % (Auto) Bacon % (Auto) Eos % (Auto) Baso % (Auto) Lymph # (Auto) Bacon # (Auto) Eos # (Auto) Baso # (Auto) Abs Immat Gran (auto) Absolute Neuts (auto) Absolute Nucleated RBC Nucleated RBC % (auto) PT 19.8 H INR 1.7 H APTT 37.0 D-Dimer 483 Sodium Potassium Chloride Carbon Dioxide Anion Gap BUN Creatinine Estim Creat Clear Calc Estimated GFR Random Glucose Lactic Acid Calcium Magnesium Total Bilirubin Direct Bilirubin AST ALT Alkaline Phosphatase Troponin I High Sens 127.6 H B-Natriuretic Peptide 559 H Total Protein Albumin Procalcitonin Cancelled Urine Color Urine Appearance Urine pH Ur Specific [place] Urine Protein Urine Glucose (UA) Urine Ketones Urine Blood Urine Nitrite Ur Leukocyte Esterase Urine RBC Urine WBC Ur Squamous Epith Cells Urine Bacteria Urine Yeast Coronavirus (PCR) Influenza Type A (PCR) Influenza Type B (PCR) RSV RNA Qual (PCR) 09/19/20 09/19/20 09/19/20 15:43 15:51 18:38 WBC RBC Hgb Hct MCV MCH MCHC RDW Plt Count MPV Immature Gran % (Auto) Neut % (Auto) Lymph % (Auto) Bacon % (Auto) Eos % (Auto) Baso % (Auto) Lymph # (Auto) Bacon # (Auto) Eos # (Auto) Baso # (Auto) Abs Immat Gran (auto) Absolute Neuts (auto) Absolute Nucleated RBC Nucleated RBC % (auto) PT INR APTT D-Dimer Sodium 137 Potassium 4.3 Chloride 103 Carbon Dioxide 27 Anion Gap 11 L BUN 11 Creatinine 0.73 Estim Creat Clear Calc 63.2 Estimated GFR > 60 Random Glucose 120 H Lactic Acid Calcium 7.8 L Magnesium 1.8 Total Bilirubin 0.6 Direct Bilirubin 0.4 AST 18 ALT 7 Alkaline Phosphatase 44 Troponin I High Sens B-Natriuretic Peptide Total Protein 5.8 L Albumin 3.2 L Procalcitonin Urine Color YELLOW Urine Appearance CLEAR Urine pH 6.0 Ur Specific [place] 1.025 Urine Protein NEG Urine Glucose (UA) NEG Urine Ketones NEG Urine Blood TRACE Urine Nitrite NEG Ur Leukocyte Esterase NEG Urine RBC 0-2 Urine WBC 0 Ur Squamous Epith Cells 1+ Urine Bacteria TRACE Urine Yeast TRACE Coronavirus (PCR) NEGATIVE Influenza Type A (PCR) NEGATIVE Influenza Type B (PCR) NEGATIVE RSV RNA Qual (PCR) NEGATIVE 09/19/20 09/19/20 09/19/20 18:38 20:04 22:15 WBC RBC Hgb Hct MCV MCH MCHC RDW Plt Count MPV Immature Gran % (Auto) Neut % (Auto) Lymph % (Auto) Bacon % (Auto) Eos % (Auto) Baso % (Auto) Lymph # (Auto) Bacon # (Auto) Eos # (Auto) Baso # (Auto) Abs Immat Gran (auto) Absolute Neuts (auto) Absolute Nucleated RBC Nucleated RBC % (auto) PT INR APTT D-Dimer Sodium Potassium Chloride Carbon Dioxide Anion Gap BUN Creatinine Estim Creat Clear Calc Estimated GFR Random Glucose Lactic Acid Calcium Magnesium Total Bilirubin Direct Bilirubin AST ALT Alkaline Phosphatase Troponin I High Sens 460.5 H D 344.3 H B-Natriuretic Peptide Total Protein Albumin Procalcitonin 0.94 Urine Color Urine Appearance Urine pH Ur Specific [place] Urine Protein Urine Glucose (UA) Urine Ketones Urine Blood Urine Nitrite Ur Leukocyte Esterase Urine RBC Urine WBC Ur Squamous Epith Cells Urine Bacteria Urine Yeast Coronavirus (PCR) Influenza Type A (PCR) Influenza Type B (PCR) RSV RNA Qual (PCR) ECG Attestation: I personally reviewed and interpreted this ECG as follows: Interpretation: EKG with sinus rhythm at 72/Min; anterior as well as inferior T inversions. These are different compared to prior EKG from [facility] in August. Imaging Radiologist's impression: Impressions Chest X-Ray 09/19/20 14:30 IMPRESSION: Bronchial wall thickening with interstitial prominence noted which may represent edema versus small airways infectious/inflammatory process. Chest CTA 09/19/20 16:49 IMPRESSION: New patchy bilateral airspace disease suggesting infectious etiology or aspiration. Esophagus is distended with air and debris is possible aspiration source. This should be clinically correlated. No evidence for central pulmonary emboli. Known thoracic aortic stent graft and underlying extensive emphysematous changes. VTE: Negative Assessment and Plan (1) NSTEMI (non-ST elevated myocardial infarction): Status: Acute (2) Atherosclerotic cardiovascular disease: Status: Acute (3) PAF (paroxysmal atrial fibrillation): Status: Acute (4) Chronic heart failure with preserved ejection fraction (HFpEF): Status: Acute (5) COPD (chronic obstructive pulmonary disease): Qualifiers: COPD type: emphysema Emphysema type: centrilobular Qualified Code(s): J43.2 - Centrilobular emphysema Status: Acute (6) Pneumonia: Qualifiers: Pneumonia type: due to unspecified organism Laterality: right Lung location: upper lobe of lung Qualified Code(s): J18.9 - Pneumonia, unspecified organism Status: Acute (7) Hemoptysis: Status: Acute (8) Descending thoracic aortic aneurysm: Problem details: s/p repair Status: Acute 80-year-old female, vasculopath presenting mainly for pneumonia type symptoms and also having elevated troponins. This could be residual troponin leak from the recent NSTEMI while she was at [facility]. Recurrent NSTEMI is also possible. Cardiac catheterization data reviewed from 09/06/2020; left main-normal; she had 2 vessel disease involving the LAD and RCA. Echocardiogram from [facility] with LVEF 35-45%; distal anteroseptal and inferoseptal severe hypokinesis and apical dyskinesis; severe mitral and calcification and mild aortic valve calcification. As she had no anginal-type symptoms, she was recommended to be on optimal medical therapy. Treat for stable CAD with aspirin, beta-blockers and high-dose statins. If no major hemoptysis, then start back on the Xarelto. We will repeat echocardiogram to see her EF as well as wall motion.
--- NOTE | 2020-09-20 16:52 | W.PM.IDCN ---
History of Present Illness Data of Consult Service Date: 09/20/20 Requesting physician: Guillermina Manning Primary Care Provider: Quentin Freeman MD [facility] Reason for consult: shortness of breath She presents with shortness of breath for 3 days She describes redblack sputum She was hospitalized at [facility] in August for pneumonia and was given Ceftriaxone and Zmax and discharged on 09/08 She also has seen thoracic Dr Rodriguez and had VATS on 06/18/20 and noticed she had fungus She has had right lung nodule She has KATHY found on bronchoscopy 2015 Review of Systems Review of Systems: Yes all other systems are reviewed and are negative [facility] Past Medical History Medical History Atherosclerotic cardiovascular disease Bronchitis Chronic heart failure with preserved ejection fraction (HFpEF) Chronic respiratory failure COPD (chronic obstructive pulmonary disease) Descending thoracic aortic aneurysm Hemoptysis PAF (paroxysmal atrial fibrillation) Pneumonia Pulmonary nodule Family History Family history: reviewed and not pertinent Social History Social History Alcohol intake: never Smoking Status: Former smoker Use of substances other than those prescribed or required for medical reasons: No Advance Directives: No Advance Directives Information Provided: No Meds Allergies Allergy/AdvReac Type Severity Reaction Status Date / Time azithromycin Allergy Severe Vomiting Verified 09/18/20 18:49 Morphine Allergy Severe Vomiting Uncoded 09/19/20 14:16 Opiods Allergy Severe Vomiting Uncoded 09/19/20 14:16 percocet Allergy Severe Vomiting Uncoded 09/19/20 14:16 Percodan Allergy Severe Vomiting Uncoded 09/19/20 14:16 Tylenol #3 Allergy Severe Vomiting Uncoded 09/19/20 14:16 Home Medications Medication Instructions Recorded Confirmed Type aspirin 81 mg tablet,delayed 81 mg PO DAILY 06/07/20 09/19/20 History release cetirizine 10 mg capsule 10 mg PO DAILY cap 06/07/20 09/19/20 History levothyroxine 88 mcg tablet 88 mcg PO DAILY 06/07/20 09/19/20 History lifitegrast 5 % eye drops in a 1 drp OPHTHALMIC (EYE) BID 06/07/20 09/19/20 History dropperette magnesium glycinate 100 mg tablet 100 mg PO DAILY 06/07/20 09/19/20 History mecobalamin (vitamin B12) 1,000 1,000 mcg PO DAILY 06/07/20 09/19/20 History mcg chewable tablet pantoprazole 40 mg tablet,delayed 40 mg PO DAILY 06/07/20 09/19/20 History release pyridoxine (vitamin B6) 100 mg 50 mg PO BID 06/07/20 09/19/20 History tablet turmeric 400 mg capsule mg PO DAILY 06/07/20 09/18/20 History rivaroxaban 20 mg tablet 20 mg PO DAILY@1700 07/25/20 09/19/20 History albuterol sulfate [ProAir HFA] 2 puff INHALATION Q4H PRN 09/19/20 09/19/20 History alprazolam 0.25 mg PO BID PRN 09/19/20 09/19/20 History carvedilol 6.25 mg PO BID 09/19/20 09/19/20 History conjugated estrogens [Premarin] 1.5 g VAGINAL BEDTIME 09/19/20 09/19/20 History fluticasone propionate 2 spray INTRANASAL DAILY 09/19/20 09/19/20 History tiotropium-olodaterol [Stiolto 2 puff INHALATION DAILY 09/19/20 09/19/20 History Respimat] Physical Exam Vital Signs: Vital Signs: Last Vital Signs Temp 97.9 F 09/20/20 00:17 Pulse 89 09/20/20 14:14 Resp 15 09/20/20 14:14 BP 157/76 H 09/20/20 14:14 Pulse Ox 94 09/20/20 14:14 Body Mass Index 29.5 Const: General: cooperative HENMT: Head: Yes normal to inspection Mouth: oropharynx normal Eyes: General: appearance normal, both eyes and all related structures Resp: Effort & Inspection: normal respiratory effort Cardio: Rate: regular rate Rhythm: regular rhythm GI: Palpation (GI): Soft to palpation and nontender Skin: General skin exam: no rashes or lesions noted Extrem: General: Yes normal to inspection Assessment and Plan (1) Chronic respiratory failure: Qualifiers: Respiratory failure complication: hypoxia Qualified Code(s): J96.11 - Chronic respiratory failure with hypoxia Status: Acute (2) Pneumonia: Qualifiers: Pneumonia type: due to unspecified organism Laterality: right Lung location: upper lobe of lung Qualified Code(s): J18.9 - Pneumonia, unspecified organism Problem details: No h/o TB Possible KATHY or allergic bronchopulmonary aspergillosis Possible hospital associated organisms Status: Acute Continue antibiotics for now Will check infection [facility] (3) Hemoptysis: Status: Acute Results Labs CBC & Chem 7: 09/19/20 15:08 09/19/20 18:38 Labs: BMP 09/19/20 09/19/20 15:08 18:38 Sodium Cancelled 137 Potassium Cancelled 4.3 Chloride Cancelled 103 Carbon Dioxide Cancelled 27 BUN Cancelled 11 Creatinine Cancelled 0.73 Calcium Cancelled 7.8 L Liver Function 09/19/20 09/19/20 Range/Units 15:08 18:38 Total Bilirubin Cancelled 0.6 Direct Bilirubin Cancelled 0.4 AST Cancelled 18 ALT Cancelled 7 Alkaline Phosphatase Cancelled 44 Albumin Cancelled 3.2 L
--- NOTE | 2020-09-20 17:13 | P.PNIM_ITS ---
Subjective Subjective Date of Service: 09/21/20 Interval History: Patient complaining of heart palpitations resting comfortably in bed, feels that she was discharged too soon from [facility] since her discharge she has been feeling weak,no fever, chills. Review of system General no headache no dizziness no fever chills. CVS no chest pain, complaining of palpitation. Respiratory cough productive of brown phlegm, shortness of breath Gastrointestinal no nausea no vomiting, no abdominal pain Physical Exam Vital Signs: Vital Signs: Last Vital Signs Temp 97.9 F 09/20/20 00:17 Pulse 89 09/20/20 14:14 Resp 15 09/20/20 14:14 BP 157/76 H 09/20/20 14:14 Pulse Ox 94 09/20/20 14:14 Body Mass Index 29.5 Gen: no acute distress, no respiratory distress Pulmonary: Diminished breath sound at bases, no wheeze, no crackles CVS: Normal S1-S2 Abdomen: Soft, Nontender, bowel sounds audible Extremities: No edema Neuro: Alert and awake. Nonfocal Objective Data Current Medications Generic Name Dose Route Start Last Admin Trade Name Freq PRN Reason Stop Dose Admin Acetaminophen 650 mg 09/19/20 23:20 Acetaminophen Supp 650 Mg Supp.Rect RI Q6H PRN Pain, Mild (Pain Scale 1-3) Albuterol/Ipratropium 3 ml 09/19/20 23:20 Albuterol/Iprat 2.5/0.5mg 3 Ml Ampul.Neb INHALE RQ6H PRN Shortness of Breath/Wheezing Alprazolam 0.25 mg 09/19/20 23:25 Alprazolam 0.25 Mg Tablet PO BID PRN Anxiety Aspirin 81 mg 09/20/20 09:00 09/20/20 08:01 Aspirin Enteric Coated 81 Mg Tablet. PO 81 mg DAILY [facility] Administration Carvedilol 6.25 mg 09/20/20 01:00 09/20/20 08:02 Carvedilol 6.25 Mg Tablet PO 6.25 mg BID [facility] Administration Protocol Estrogens Conjugated 1.5 gm 09/20/20 21:00 Estrogens, Conjugated Cream 30 Gm Tube VAGINAL BEDTIME [facility] Fluticasone Propionate 2 spray 09/20/20 09:00 09/20/20 10:16 Fluticasone Propionate Nasal 16 Gm [place] NOSTRIL-B Not Given DAILY [facility] Piperacillin Sod/Tazobactam 50 mls @ 100 mls/hr 09/19/20 23:30 09/20/20 13:37 Sod 3.375 gm/ Sodium Chloride IV Infused Q6H [facility] Infusion Vancomycin HCl 750 mg/ 275 mls @ 183.333 mls/hr 09/21/20 05:00 Vancomycin HCl 500 mg/ Sodium IV Chloride Q24H [facility] Levothyroxine Sodium 88 mcg 09/20/20 06:30 09/20/20 07:52 Levothyroxine Sodium 88 Mcg Tablet PO 88 mcg DAILY@0630 [facility] Administration Loratadine 10 mg 09/20/20 09:00 09/20/20 08:01 Loratadine 10 Mg Tablet PO 10 mg DAILY [facility] Administration Pharmacy Consult 1 each 09/19/20 14:30 Consult Rx Perform Med Rec MISCELLANE ONCE PRN Consult order Sodium Chloride 3 ml 09/20/20 00:00 09/20/20 16:26 0.9 % Sodium Chloride Flush 3 Ml Syringe IVFLUSH 3 ml QSHIFT [facility] Administration Labs CBC & Chem 7: 09/19/20 15:08 09/19/20 18:38 Assessment and Plan (1) Chronic heart failure with preserved ejection fraction (HFpEF): Status: Acute Assessment and Plan: 80-year-old female with a past medical history of hypertension, hyperlipidemia, atrial fibrillation on Xarelto, diastolic CHF, CAD-recent NSTEMI/cardiac catheterization on 09/06/2020; 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 Noted to have pneumonia on the CT scan admitted to the hospital for further management. Health-care associated pneumonia: No sepsis, No fever , no chills, oxygenation stable on room air, continue vanc and Zosyn Case discussed with Dr. Arrington he will schedule bronchoscopy on Wednesday , continue supportive care with cough medication, incentive spirometry and as nee ded oxygen COVID-19 negative Blood-tinged sputum Likely from pneumonia, H&H stable continue close clinical follow-up hold Xarelto Elevated troponins: No chest pain s/p recent NSTEMI and cardiac catheterization on 09/06/2020,was medically managed with heparin drip at [facility], Elevated troponin on admission now trending down likely from recent non ST- elevation [place] , echocardiogram from [facility] showed EF of 35-45% distal anterior septal and inferior septal hypokinesis and apical dyskinesis, patient seen by Cardiology they recommend to continue aspirin, beta-blockers on statins due to intolerance, to resume repatha upon discharge will resume Xarelto if patient noted to have no further bouts of hemoptysis and cleared by pulmonology Cardio recommend to repeat echocardiogram to assess EF and wall motion Atrial fibrillation: Currently rate controlled on Coreg, patient feels p alpitation but heart rate is well controlled, Will hold Xarelto for now follow hematocrit , will resume after bronchoscopy Diastolic CHF: Currently stable. Continue home medications. History of COPD, no acute exacerbation, continue DuoNeb and oxygen support cough syrup as needed Code status Full code
--- NOTE | 2020-09-20 18:16 | MHC.CM.PN ---
Addendum entered by Mercedez Del Cid 09/20/20 18:33: IMM reviewed and signed. Copy with patient and in chart. Original Note: CM met with patient. A&O x3. Very pleasant, but very worried about hospitalization and illness. Sl weepy during interview. Just wants to feel better . Lives with , uses a walking stick and was very active until the past several years when she has been dealing with illness. Has piping designer. Has had [facility]NA in past, but cannot remember what service. Agreeable to VNA. Does not want STR. C/O feeling weak and exhausted. Needing to use O2 more. PT evaluation may be helpful. /HCP Chino Stewart ([phone]). No copy on file. At home. to bring into hospital. D/C plan is home with VNA services. Referrals placed. Family to provide transportation home. CM to follow for d/c needs
[2020-09-20] MEDS: Estrogens, Conjugated CREAM 30 GM TUBE VAGINAL (20:54)
[2020-09-21] VITALS (8 sets, daily range): BP systolic 144–169; BP diastolic 65–79; PULSE 79–90; RESP 18–20; TEMP 36.4–36.9; O2SAT 91–97
[2020-09-21] MEDS: ALPRAZolam 0.25 MG TABLET PO ×2 (00:27→23:47)
[2020-09-21] MEDS: 0.9 % Sodium Chloride Flush 3 ML SYRINGE IVFLUSH ×3 (03:05→15:57)
[2020-09-21] MEDS: Piperacillin Sodium/Tazobactam 3.375 GM in 0.9 % Sodium Chloride 50 ML IV ×4 (05:37→23:24)
[2020-09-21] MEDS: Levothyroxine Sodium 88 MCG TABLET PO (05:38)
[2020-09-21] MEDS: Fluticasone Propionate Nasal 16 GM SPRAY 2 SPRAY NOSTRIL-B (08:37)
[2020-09-21] MEDS: carvediloL 6.25 MG TABLET PO (08:38)
[2020-09-21] MEDS: Aspirin Enteric Coated 81 MG TABLET.DR PO (08:38)
[2020-09-21] MEDS: Loratadine 10 MG TABLET PO (08:38)
--- NOTE | 2020-09-21 10:57 | PM.EVENT ---
Event Note Date of Service: 09/21/20 Event Note: PATIENT IS SEEN TODAY FOR PULMONARY CONSULTATION. HISTORY REVIEWED, PATIENT EXAMINED. LAB AND IMAGING IS REVIEWED. COMPLETE NOTE DICTATED. A: CHRONIC OBSTRUCTIVE PULMONARY DISEASE . BILATERAL PATCHY PNEUMONIA, LOWER LOBES, MAY BE HOSPITAL-ACQUIRED PNEUMONIA/ ALSO POSSIBILITY OF SILENT PULMONARY ASPIRATIONS. P: CONTINUE TREATMENT FOR HACP. WITH VANCOMYCIN AND ZOSYN AT THIS TIME. SPUTUM CULTURE, IF NEGATIVE, THEN VANCOMYCIN CAN BE DISCONTINUED. DUONEB UPDRAFTS Q 4-6 HOURS WHILE AWAKE. OXYGEN SUPPLEMENTATION TO KEEP O2 SAT ABOVE 92%. PATIENT WILL BE RE-EVALUATED AFTER A FEW DAYS TREATMENT AND THEN DECIDE IF SHE SHOULD HAVE BRONCHOSCOPIC EXAMINATION.
--- NOTE | 2020-09-21 11:08 | P.PNCA_ITS ---
Subjective Subjective Date of Service: 09/21/20 Interval history: She has no angina type symptoms however just tiredness and fatigue. Still has blood-tinged sputum. Review of Systems Review of Systems Yes all other systems are reviewed and are negative Constitutional: Reports weakness Cardiovascular: Reports as per HPI, Reports no additional cardiovascular complaints, Denies acrocyanosis, Denies cool extremities, Denies painful fingertips, Denies chest pain, Denies chest pain at rest, Denies diaphoresis, Denies syncope, Denies irregular heart rhythm, Denies claudication, Denies leg edema, Denies lightheadedness, Denies palpitations and Reports dyspnea Respiratory: Reports dyspnea Denies syncope and Reports weakness Endocrine: Denies palpitations Physical Exam Vital Signs: Last Vital Signs Temp 98.1 F 09/21/20 07:12 Pulse 79 09/21/20 08:38 Resp 19 09/21/20 07:12 BP 151/69 H 09/21/20 08:38 Pulse Ox 91 L 09/21/20 07:12 Body Mass Index 29.5 Const General: cooperative, comfortable and no acute distress Orientation/consciousness: patient oriented x3 HENMT Other: Unremarkable Neck Neck: Yes normal visual inspection Chest Chest palpation & inspection: normal inspection of the chest Resp Auscultation: clear to auscultation bilaterally, crackles and no wheezes Cardio Jugular venous distension: no JVD Palpation: normal PMI Heart sounds: S1 normal heart sound present, S2 normal heart sound present, no gallops, Murmur heart sound present systolic at the apex, at the left sternal border and at the right sternal border and no rubs GI Palpation (GI): Soft to palpation Back/Spine/Pelvis Other: unremarkable Skin General skin exam: no rashes or lesions noted Neuro General: patient oriented x3 Extrem General: Yes no clubbing, cyanosis or edema Psych Mental Status: mental status grossly normal Results Labs and Meds Result diagrams: 09/19/20 15:08 09/19/20 18:38 Progress Note: A&P Assessment and plan (1) NSTEMI (non-ST elevated myocardial infarction): Status: Acute (2) Atherosclerotic cardiovascular disease: Status: Acute (3) PAF (paroxysmal atrial fibrillation): Status: Acute (4) Chronic heart failure with preserved ejection fraction (HFpEF): Status: Acute (5) COPD (chronic obstructive pulmonary disease): Status: Acute (6) Pneumonia: Status: Acute (7) Hemoptysis: Status: Acute (8) 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 This could be residual troponin leak from the recent NSTEMI while she was at [facility]. Recurrent NSTEMI is also possible. Cardiac catheterization data reviewed from 09/06/2020; left main-normal; she had 2 vessel disease involving the LAD and RCA. Echocardiogram from [facility] with LVEF 35-45%; distal anteroseptal and inferoseptal severe hypokinesis and apical dyskinesis; severe mitral and calcification and mild aortic valve calcification. Repeat echocardiogram with slightly higher EF and wall motion appears actually improved. As she had no anginal-type symptoms, she was recommended to be on optimal medical therapy. Treat for stable CAD with aspirin, beta-blockers. She states that she preferred atenolol over carvedilol and hence we can switch. Otherwise with regard to statins, she has a history of strong intolerance. Hence upon discharge, she can do Repatha. Otherwise, plans for bronchoscopy noted. Once that is cleared, and no hemoptysis can resume anticoagulation. Fall Risk Details Current Medications: Current Medications Generic Name Dose Route Start Last Admin Trade Name Freq PRN Reason Stop Dose Admin Acetaminophen 650 mg 09/19/20 23:20 Acetaminophen Supp 650 Mg Supp.Rect [place] Q6H PRN Pain, Mild (Pain Scale 1-3) Albuterol/Ipratropium 3 ml 09/19/20 23:20 Albuterol/Iprat 2.5/0.5mg 3 Ml Ampul.Neb INHALE RQ6H PRN Shortness of Breath/Wheezing Alprazolam 0.25 mg 09/19/20 23:25 09/21/20 00:27 Alprazolam 0.25 Mg Tablet PO 0.25 mg BID PRN Administration Anxiety Aspirin 81 mg 09/20/20 09:00 09/21/20 08:38 Aspirin Enteric Coated 81 Mg Tablet. PO 81 mg DAILY [facility] Administration Carvedilol 6.25 mg 09/20/20 01:00 09/21/20 08:38 Carvedilol 6.25 Mg Tablet PO 6.25 mg BID [facility]OLO Administration Protocol Estrogens Conjugated 1.5 gm 09/20/20 21:00 09/20/20 20:54 Estrogens, Conjugated Cream 30 Gm Tube VAGINAL 1.5 gm BEDTIME [facility] Administration Fluticasone Propionate 2 spray 09/20/20 09:00 09/21/20 08:37 Fluticasone Propionate Nasal 16 Gm [place] NOSTRIL-B 2 spray DAILY [facility] Administration Piperacillin Sod/Tazobactam 50 mls @ 100 mls/hr 09/19/20 23:30 09/21/20 06:15 Sod 3.375 gm/ Sodium Chloride IV Infused Q6H [facility] Infusion Vancomycin HCl 750 mg/ 275 mls @ 183.333 mls/hr 09/21/20 05:00 09/21/20 08:39 Vancomycin HCl 500 mg/ Sodium IV Infused Chloride Q24H [facility] Infusion Levothyroxine Sodium 88 mcg 09/20/20 06:30 09/21/20 05:38 Levothyroxine Sodium 88 Mcg Tablet PO 88 mcg DAILY@0630 [facility] Administration Loratadine 10 mg 09/20/20 09:00 09/21/20 08:38 Loratadine 10 Mg Tablet PO 10 mg DAILY [facility] Administration Pharmacy Consult 1 each 09/19/20 14:30 Consult Rx Perform Med Rec MISCELLANE ONCE PRN Consult order Sodium Chloride 3 ml 09/20/20 00:00 09/21/20 08:38 0.9 % Sodium Chloride Flush 3 Ml Syringe IVFLUSH 3 ml QSHIFT [facility]O Administration Time Spent With Patient Time: Total time spent is greater than 50% in coordination of care (as documented) at patient's floor/unit and/or counseling patient: Time with patient: 15 - 24 minutes
--- NOTE | 2020-09-21 14:55 | P.PNIM_ITS ---
Subjective Subjective Date of Service: 09/21/20 Interval History: Patient very anxious about blood-tinged sputum, concern about recurrent fungal infection ,cancer, denies chest pain, denies shortness of breath, has persistent blood-tinged sputum no fever chills no other acute issues overnight. Patient feels weak after using Coreg previously was on atenolol wishes to be placed back on atenolol. Review of system General no headache no dizziness no fever chills, feels anxious. CVS no chest pain, no palpitation. Respiratory cough productive blood tinged sputum, no shortness of breath Gastrointestinal no nausea, no vomiting, no abdominal pain Physical Exam Vital Signs: Vital Signs: Last Vital Signs Temp 97.6 F 09/21/20 11:32 Pulse 80 09/21/20 11:32 Resp 20 09/21/20 11:32 BP 144/68 H 09/21/20 11:32 Pulse Ox 95 09/21/20 11:32 Body Mass Index 29.5 Gen: no acute distress, no respiratory distress Pulmonary: Clear to auscultation, diminished, no wheeze, no crackles CVS: Normal S1-S2 Abdomen: Soft, Nontender, bowel sounds audible Extremities: No edema Neuro: Alert and awake. Nonfocal Objective Data Current Medications Generic Name Dose Route Start Last Admin Trade Name Freq PRN Reason Stop Dose Admin Acetaminophen 650 mg 09/19/20 23:20 Acetaminophen Supp 650 Mg Supp.Rect [place] Q6H PRN Pain, Mild (Pain Scale 1-3) Albuterol/Ipratropium 3 ml 09/19/20 23:20 Albuterol/Iprat 2.5/0.5mg 3 Ml Ampul.Neb INHALE RQ6H PRN Shortness of Breath/Wheezing Alprazolam 0.25 mg 09/19/20 23:25 09/21/20 00:27 Alprazolam 0.25 Mg Tablet PO 0.25 mg BID PRN Administration Anxiety Aspirin 81 mg 09/20/20 09:00 09/21/20 08:38 Aspirin Enteric Coated 81 Mg Tablet. PO 81 mg DAILY [facility] Administration Carvedilol 6.25 mg 09/20/20 01:00 09/21/20 08:38 Carvedilol 6.25 Mg Tablet PO 6.25 mg BID CHOLO Administration Protocol Estrogens Conjugated 1.5 gm 09/20/20 21:00 09/20/20 20:54 Estrogens, Conjugated Cream 30 Gm Tube VAGINAL 1.5 gm BEDTIME [facility] Administration Fluticasone Propionate 2 spray 09/20/20 09:00 09/21/20 08:37 Fluticasone Propionate Nasal 16 Gm [place] NOSTRIL-B 2 spray DAILY [facility] Administration Piperacillin Sod/Tazobactam 50 mls @ 100 mls/hr 09/19/20 23:30 09/21/20 12:39 Sod 3.375 gm/ Sodium Chloride IV Infused Q6H [facility] Infusion Vancomycin HCl 750 mg/ 275 mls @ 183.333 mls/hr 09/21/20 05:00 09/21/20 08:39 Vancomycin HCl 500 mg/ Sodium IV Infused Chloride Q24H [facility] Infusion Levothyroxine Sodium 88 mcg 09/20/20 06:30 09/21/20 05:38 Levothyroxine Sodium 88 Mcg Tablet PO 88 mcg DAILY@0630 [facility] Administration Loratadine 10 mg 09/20/20 09:00 09/21/20 08:38 Loratadine 10 Mg Tablet PO 10 mg DAILY [facility] Administration Pharmacy Consult 1 each 09/19/20 14:30 Consult Rx Perform Med Rec MISCELLANE ONCE PRN Consult order Sodium Chloride 3 ml 09/20/20 00:00 09/21/20 08:38 0.9 % Sodium Chloride Flush 3 Ml Syringe IVFLUSH 3 ml QSHIFT [facility] Administration Labs CBC & Chem 7: 09/19/20 15:08 09/19/20 18:38 Microbiology Microbiology Results: Microbiology 09/19/20 15:08 Blood - Venous Blood Culture - Preliminary No growth after 24 hours. 09/19/20 15:43 Blood - Venous Blood Culture - Preliminary No growth after 24 hours. Assessment and Plan (1) PAF (paroxysmal atrial fibrillation): Status: Acute (2) Atherosclerotic cardiovascular disease: Status: Acute (3) Chronic respiratory failure: Status: Acute (4) Pneumonia: Status: Acute (5) Hemoptysis: Status: Acute (6) COPD (chronic obstructive pulmonary disease): Status: Acute Assessment and Plan: 80-year-old female with a past medical history of hypertension, hyperlipidemia, atrial fibrillation on Xarelto, diastolic CHF, CAD-recent NSTEMI/cardiac catheterization on 09/06/2020; 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 Noted to have pneumonia on the CT scan admitted to the hospital for further management. Health-care associated pneumonia: No sepsis, No fever , no chills, oxygenation stable on room air 95%, continue vanc and Zosyn day 2 continue supportive care with cough medication, incentive spirometry and as needed oxygen COVID-19 negative persistent Blood-tinged sputum Likely from pneumonia, H&H stable continue close clinical follow-up hold Xarelto Patient seen by Dr. Greenberg he agrees with above treatment and recommend sputum culture and sensitivity, blood culture x2 negative follow CBC and Vanco trough Elevated troponins: No chest pain s/p recent NSTEMI and cardiac catheterization on 09/06/2020,was medically managed with heparin drip at [facility], Elevated troponin on admission now trending down likely from recent non ST- elevation [place] , echocardiogram from [facility] showed EF of 35-45% distal anterior septal and inferior septal hypokinesis and apical dyskinesis, patient seen by Cardiology they recommend to continue aspirin, beta-blockers on statins due to intolerance, to resume repatha upon discharge will resume Xarelto if patient noted to have no further bouts of hemoptysis and cleared by pulmonology repeat echocardiogram shows improvement in EF and wall motion, patient seen by Dr. Garay he recommend to continue aspirin and beta blockers and since patient feels weak after Coreg will switch her to atenolol 25 mg today and will increase dose to 50 mg tomorrow morning if BP and heart rate tolerate Atrial fibrillation: Currently rate controlled changed to atenolol, Will hold Xarelto for now follow hematocrit , will resume after bronchoscopy Diastolic CHF: Currently stable. Continue home medications. History of COPD, no acute exacerbation, continue DuoNeb and oxygen support, cough syrup as needed being followed by pulmonology. Code status Full code
[2020-09-21 15:30] LABS: MANUAL DIFF FLAG NO
[2020-09-21 15:33] LABS: Basophils Percent Auto 0.2 % (0-2); Eosinophils Absolute Auto 0.1 X10*3/uL (0.0-0.4); Eosinophils Percent Auto 0.5 % (0-4); Hematocrit 30.8 % (37-47); Hemoglobin 9.3 g/dl (12.0-16.0); Imm Gran Abs Auto 0.07 X10*3/uL (0.00-0.03); Imm Gran Pct Auto 0.5 % (0.0-0.4); Lymphocytes Percent Auto 13.8 % (20-40); Mean Corpuscular HGB Conc 30.2 g/dl (31.0-35.0); Mean Corpuscular Hemoglobin 24.5 pg (27.0-33.0); Mean Corpuscular Volume 81.3 fL (80-98); Mean Platelet Volume 10.1 fL (9.4-12.3); Monocytes Absolute Auto 1.5 X10*3/uL (0.1-1.2); Neutrophils Absolute Auto 11.1 X10*3/uL (2.0-8.3); Platelet Count 388 X10*3/uL (160-400); Red Blood Count 3.79 X10*6/uL (4.20-5.50); Red Cell Distribution Width 15.6 % (11.0-16.0); White Blood Count 14.8 X10*3/uL (4.8-10.8)
[2020-09-21] MEDS: atenoloL 25 MG TABLET PO (15:56)
[2020-09-21 16:21] LABS: Anion Gap 12 (12-20); Carbon Dioxide 27 mmol/L (22-29); Chloride 104 mmol/L (96-108); Creatinine Clr Calc Pharmacy 62.3; Estimated Glomerular Filt Rate > 60; Glucose Random 92 mg/dL (60-115); Potassium 4.4 mmol/L (3.3-5.1); Sodium 139 mmol/L (135-145)
[2020-09-21 16:32] LABS: Blood Urea Nitrogen 18 mg/dL (9-16); Calcium 8.8 mg/dL (8.4-10.2)
[2020-09-21] MEDS: Docusate Sodium 100 MG CAPSULE PO (17:59)
[2020-09-21] MEDS: Nystatin Powder 15 GM BOTTLE 1 APPL TOPICAL (20:56)
[2020-09-21] MEDS: Estrogens, Conjugated CREAM 30 GM TUBE VAGINAL (20:56)
[2020-09-21] MEDS: Acetaminophen 325 MG TABLET 650 MG PO (23:47)
[2020-09-22] MEDS: 0.9 % Sodium Chloride Flush 3 ML SYRINGE IVFLUSH ×4 (01:16→20:34)
[2020-09-22 02:34] LABS: Vancomycin Trough 8.7 mcg/mL (10.0-20.0)
[2020-09-22 04:00] VITALS: BP 152/74; PULSE 78; RESP 18; TEMP 36.6; O2SAT 95
--- NOTE | 2020-09-22 04:26 | PC.NURSE ---
vanco trough 8.7, made aware no new orders at this time. scheduled dose of 1250mg given.
[2020-09-22] MEDS: Piperacillin Sodium/Tazobactam 3.375 GM in 0.9 % Sodium Chloride 50 ML IV ×4 (05:55→22:05)
[2020-09-22] MEDS: Levothyroxine Sodium 88 MCG TABLET PO (05:55)
[2020-09-22 07:24] VITALS: BP 152/71; PULSE 72; RESP 17; TEMP 36.4; O2SAT 92
[2020-09-22] MEDS: Loratadine 10 MG TABLET PO (09:11)
[2020-09-22] MEDS: Aspirin Enteric Coated 81 MG TABLET.DR PO (09:11)
[2020-09-22] MEDS: Fluticasone Propionate Nasal 16 GM SPRAY 2 SPRAY NOSTRIL-B (09:12)
[2020-09-22] MEDS: Nystatin Powder 15 GM BOTTLE 1 APPL TOPICAL ×2 (09:12→20:34)
[2020-09-22 10:23] VITALS: BP 165/71; PULSE 81
[2020-09-22] MEDS: atenoloL 50 MG TABLET PO (10:23)
--- NOTE | 2020-09-22 11:38 | HO.PM.IMPN ---
Subjective Subjective Date of Service: 09/22/20 Interval History: Patient complaining of neuropathy pain both feet, does not take any medication for it uses ice, feels better in regard to shortness of breath and cough, she is very certain that she has some fungal infection in her lungs, no fevers, no chills overnight. Review of system General no headache no dizziness no fever chills, both feet pain related to neuropathy. CVS no chest pain, no palpitation. Respiratory cough productive of blood tinged sputum, no shortness of breath Gastrointestinal no nausea, no vomiting, no abdominal pain Physical Exam Vital Signs: Vital Signs: Last Vital Signs Temp 97.6 F 09/22/20 07:24 Pulse 81 09/22/20 10:23 Resp 17 09/22/20 07:24 BP 165/71 H 09/22/20 10:23 Pulse Ox 92 09/22/20 07:24 Body Mass Index 29.5 Gen: no acute distress, awake alert sitting comfortably Neck is supple Pulmonary: Clear to auscultation, no wheeze, no crackles, no respiratory distress CVS: Normal S1-S2 Abdomen: Soft, Nontender, bowel sounds audible Extremities: No edema, normal appearing toes no redness, trace swelling at ankles Neuro: Alert and awake. Nonfocal Objective Data Current Medications Generic Name Dose Route Start Last Admin Trade Name Danielq PRN Reason Stop Dose Admin Acetaminophen 650 mg 09/21/20 23:29 09/21/20 23:47 Acetaminophen 325 Mg Tablet PO 650 mg Q6H PRN Administration Breakthrough Pain Albuterol/Ipratropium 3 ml 09/19/20 23:20 Albuterol/Iprat 2.5/0.5mg 3 Ml Ampul.Neb INHALE RQ6H PRN Shortness of Breath/Wheezing Alprazolam 0.25 mg 09/19/20 23:25 09/21/20 23:47 Alprazolam 0.25 Mg Tablet PO 0.25 mg BID PRN Administration Anxiety Aspirin 81 mg 09/20/20 09:00 09/22/20 09:11 Aspirin Enteric Coated 81 Mg Tablet. PO 81 mg DAILY [facility] Administration Atenolol 50 mg 09/22/20 09:40 09/22/20 10:23 Atenolol 50 Mg Tablet PO 50 mg DAILY [facility] Administration Protocol Docusate Sodium 100 mg 09/21/20 16:46 09/21/20 17:59 Docusate Sodium 100 Mg Capsule PO 100 mg BID PRN Administration Constipation Estrogens Conjugated 1.5 gm 09/20/20 21:00 09/21/20 20:56 Estrogens, Conjugated Cream 30 Gm Tube VAGINAL 1.5 gm BEDTIME [facility] Administration Fluticasone Propionate 2 spray 09/20/20 09:00 09/22/20 09:12 Fluticasone Propionate Nasal 16 Gm [place] NOSTRIL-B 2 spray DAILY [facility] Administration Piperacillin Sod/Tazobactam 50 mls @ 100 mls/hr 09/19/20 23:30 09/22/20 11:20 Sod 3.375 gm/ Sodium Chloride IV Infused Q6H [facility] Infusion Levothyroxine Sodium 88 mcg 09/20/20 06:30 09/22/20 05:55 Levothyroxine Sodium 88 Mcg Tablet PO 88 mcg DAILY@0630 [facility] Administration Loratadine 10 mg 09/20/20 09:00 09/22/20 09:11 Loratadine 10 Mg Tablet PO 10 mg DAILY [facility] Administration Nystatin 1 appl 09/21/20 21:00 09/22/20 09:12 Nystatin Powder 15 Gm Bottle TOPICAL 1 appl BID [facility] Administration Protocol Pharmacy Consult 1 each 09/19/20 14:30 Consult Rx Perform Med Rec MISCELLANE ONCE PRN Consult order Sodium Chloride 3 ml 09/20/20 00:00 09/22/20 09:11 0.9 % Sodium Chloride Flush 3 Ml Syringe IVFLUSH 3 ml QSHIFT [facility] Administration Vancomycin HCl 750 mg 09/23/20 05:00 Vancomycin Hcl 750 Mg/15 Ml Vial IV Q12H [facility] Labs CBC & Chem 7: 09/21/20 15:24 09/21/20 15:24 Microbiology Microbiology Results: Microbiology 09/19/20 15:08 Blood - Venous Blood Culture - Preliminary No growth after 48 hours. 09/19/20 15:43 Blood - Venous Blood Culture - Preliminary No growth after 48 hours. Assessment and Plan (1) Healthcare-associated pneumonia: Status: Acute (2) Chronic heart failure with preserved ejection fraction (HFpEF): Status: Acute (3) PAF (paroxysmal atrial fibrillation): Status: Acute (4) Atherosclerotic cardiovascular disease: Status: Acute (5) Chronic respiratory failure: Status: Acute (6) Pneumonia: Status: Acute (7) Hemoptysis: Status: Acute (8) COPD (chronic obstructive pulmonary disease): Status: Acute Assessment and Plan: 80-year-old female with a past medical history of hypertension, hyperlipidemia, atrial fibrillation on Xarelto, diastolic CHF, CAD-recent NSTEMI/cardiac catheterization on 09/06/2020; 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 Noted to have pneumonia on the CT scan admitted to the hospital for further management. Health-care associated pneumonia: No sepsis, No fever , no chills, oxygenation stable on room air 95%, WBC trending down, continue vanc and Zosyn day 3, trough low 8.7 therefore dose adjusted continue supportive care with cough medication, incentive spirometry and as needed oxygen COVID-19 negative persistent mild Blood-tinged sputum Likely from pneumonia, H&H stable continue close clinical follow-up , continue to hold Xarelto Patient seen by Dr. Greenberg he agrees with above treatment, sputum culture pending, blood culture x2 negative, follow CBC and Vanco trough Initially discuss case with Dr. Arrington he recommended bronchoscopy on Wednesday therefore will make patient NPO and follow-up with pulmonology Elevated troponins: No chest pain s/p recent NSTEMI and cardiac catheterization on 09/06/2020,was medically managed with heparin drip at [facility], Elevated troponin on admission now trending down likely from recent non ST-elevation [place] , echocardiogram from [facility] showed EF of 35-45% distal anterior septal and inferior septal hypokinesis and apical dyskinesis, patient seen by Cardiology they recommend to continue aspirin, beta-blockers, not on statins due to intolerance, to resume repatha upon discharge will resume Xarelto if patient noted to have no further bouts of hemoptysis and cleared by pulmonology repeat echocardiogram shows improvement in EF and wall motion, patient seen by Dr. Garay he recommend to continue aspirin and beta blockers and since patient feels weak after Coreg will switch her to atenolol 50 mg. If BP remains elevated will further adjust the dose Atrial fibrillation: Currently rate controlled changed to atenolol, Will hold Xarelto for now follow hematocrit , will resume after bronchoscopy if okay with pulmonology Diastolic CHF: Currently stable. Continue home medications. History of COPD, no acute exacerbation, continue DuoNeb prn and oxygen support, cough syrup as needed being followed by pulmonology. Hypothyroidism continue Synthroid Code status Full code
[2020-09-22 11:41] VITALS: BP 148/69; PULSE 66; RESP 18; TEMP 36.3; O2SAT 98
--- NOTE | 2020-09-22 11:58 | PM.PNCARD ---
Subjective Subjective Date of Service: 09/22/20 Interval history: Tired and lethargic but otherwise no specific cardiac complaints like angina. Review of Systems Review of Systems Yes all other systems are reviewed and are negative Constitutional: Reports weakness Cardiovascular: Reports as per HPI, Reports no additional cardiovascular complaints, Denies acrocyanosis, Denies cool extremities, Denies painful fingertips, Denies chest pain, Denies chest pain at rest, Denies diaphoresis, Denies syncope, Denies irregular heart rhythm, Denies claudication, Denies leg edema, Denies lightheadedness, Denies palpitations and Reports dyspnea Respiratory: Reports dyspnea Denies syncope and Reports weakness Endocrine: Denies palpitations Physical Exam Vital Signs: Last Vital Signs Temp 97.4 F 09/22/20 11:41 Pulse 66 09/22/20 11:41 Resp 18 09/22/20 11:41 BP 148/69 H 09/22/20 11:41 Pulse Ox 98 09/22/20 11:41 Body Mass Index 29.5 Const General: cooperative, comfortable and no acute distress Orientation/consciousness: patient oriented x3 HENMT Other: Unremarkable Neck Neck: Yes normal visual inspection Chest Chest palpation & inspection: normal inspection of the chest Resp Auscultation: clear to auscultation bilaterally, crackles and no wheezes Cardio Jugular venous distension: no JVD Palpation: normal PMI Heart sounds: S1 normal heart sound present, S2 normal heart sound present, no gallops, Murmur heart sound present systolic at the apex, at the left sternal border and at the right sternal border and no rubs GI Palpation (GI): Soft to palpation Back/Spine/Pelvis Other: unremarkable Skin General skin exam: no rashes or lesions noted Neuro General: patient oriented x3 Extrem General: Yes no clubbing, cyanosis or edema Psych Mental Status: mental status grossly normal Results Labs and Meds Result diagrams: 09/21/20 15:24 09/21/20 15:24 Lab results: Laboratory Results - last 24 hr 09/21/20 09/21/20 09/22/20 15:24 15:24 01:56 WBC 14.8 H RBC 3.79 L Hgb 9.3 L Hct 30.8 L MCV 81.3 MCH 24.5 L MCHC 30.2 L RDW 15.6 Plt Count 388 MPV 10.1 Immature Gran % (Auto) 0.5 H Neut % (Auto) 75.0 H Lymph % (Auto) 13.8 L [place] % (Auto) 10.0 Eos % (Auto) 0.5 Baso % (Auto) 0.2 Lymph # (Auto) 2.0 [place] # (Auto) 1.5 H Eos # (Auto) 0.1 Baso # (Auto) 0.0 Abs Immat Gran (auto) 0.07 H Absolute Neuts (auto) 11.1 H Absolute Nucleated RBC 0.000 Nucleated RBC % (auto) 0.0 Sodium 139 Potassium 4.4 Chloride 104 Carbon Dioxide 27 Anion Gap 12 BUN 18 H D Creatinine 0.74 Estim Creat Clear Calc 62.3 Estimated GFR > 60 Random Glucose 92 Calcium 8.8 D Vancomycin Trough 8.7 L Progress Note: A&P Assessment and plan (1) NSTEMI (non-ST elevated myocardial infarction): Status: Acute (2) Atherosclerotic cardiovascular disease: Status: Acute (3) PAF (paroxysmal atrial fibrillation): Status: Acute (4) Chronic heart failure with preserved ejection fraction (HFpEF): Status: Acute (5) COPD (chronic obstructive pulmonary disease): Status: Acute (6) Pneumonia: Status: Acute (7) Hemoptysis: Status: Acute (8) 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 This could be residual troponin leak from the recent NSTEMI while she was at [facility]. Recurrent NSTEMI is also possible. Cardiac catheterization data reviewed from 09/06/2020; left main-normal; she had 2 vessel disease involving the LAD and RCA. Echocardiogram from [facility] with LVEF 35-45%; distal anteroseptal and inferoseptal severe hypokinesis and apical dyskinesis; severe mitral and calcification and mild aortic valve calcification. Repeat echocardiogram with slightly higher EF and wall motion appears actually improved. As she had no anginal-type symptoms, she was recommended to be on optimal medical therapy. Treat for stable CAD with aspirin, beta-blockers. She states that she preferred atenolol over carvedilol and hence we can switch. Otherwise with regard to statins, she has a history of strong intolerance. Hence upon discharge, she can do Repatha. Otherwise, plans for bronchoscopy noted. May proceed from cardiac. Once that is cleared, and no hemoptysis can resume anticoagulation. Fall Risk Details Current Medications: Current Medications Generic Name Dose Route Start Last Admin Trade Name Freq PRN Reason Stop Dose Admin Acetaminophen 650 mg 09/21/20 23:29 09/21/20 23:47 Acetaminophen 325 Mg Tablet PO 650 mg Q6H PRN Administration Breakthrough Pain Albuterol/Ipratropium 3 ml 09/19/20 23:20 Albuterol/Iprat 2.5/0.5mg 3 Ml Ampul.Neb INHALE RQ6H PRN Shortness of Breath/Wheezing Alprazolam 0.25 mg 09/19/20 23:25 09/21/20 23:47 Alprazolam 0.25 Mg Tablet PO 0.25 mg BID PRN Administration Anxiety Aspirin 81 mg 09/20/20 09:00 09/22/20 09:11 Aspirin Enteric Coated 81 Mg Tablet. PO 81 mg DAILY CHOLO Administration Atenolol 50 mg 09/22/20 09:40 09/22/20 10:23 Atenolol 50 Mg Tablet PO 50 mg DAILY CHOLO Administration Protocol Docusate Sodium 100 mg 09/21/20 16:46 09/21/20 17:59 Docusate Sodium 100 Mg Capsule PO 100 mg BID PRN Administration Constipation Estrogens Conjugated 1.5 gm 09/20/20 21:00 09/21/20 20:56 Estrogens, Conjugated Cream 30 Gm Tube VAGINAL 1.5 gm BEDTIME CHOLO Administration Fluticasone Propionate 2 spray 09/20/20 09:00 09/22/20 09:12 Fluticasone Propionate Nasal 16 Gm [place] NOSTRIL-B 2 spray DAILY [facility]OLO Administration Guaifenesin/Dextromethorphan 10 ml 09/22/20 11:47 Guaifenesin Dm 100/10/5 Ml 5 Ml Syrup PO Q6H PRN Cough Piperacillin Sod/Tazobactam 50 mls @ 100 mls/hr 09/19/20 23:30 09/22/20 11:20 Sod 3.375 gm/ Sodium Chloride IV Infused Q6H CHOLO Infusion Levothyroxine Sodium 88 mcg 09/20/20 06:30 09/22/20 05:55 Levothyroxine Sodium 88 Mcg Tablet PO 88 mcg DAILY@0630 CHOLO Administration Loratadine 10 mg 09/20/20 09:00 02/07/21 09:11 Loratadine 10 Mg Tablet PO 10 mg DAILY [facility]OLO Administration Nystatin 1 appl 09/21/20 21:00 09/22/20 09:12 Nystatin Powder 15 Gm Bottle TOPICAL 1 appl BID CHOLO Administration Protocol Pharmacy Consult 1 each 09/19/20 14:30 Consult Rx Perform Med Rec MISCELLANE ONCE PRN Consult order Sodium Chloride 3 ml 09/20/20 00:00 09/22/20 09:11 0.9 % Sodium Chloride Flush 3 Ml Syringe IVFLUSH 3 ml QSHIFT CHOLO Administration Vancomycin HCl 750 mg 09/23/20 05:00 Vancomycin Hcl 750 Mg/15 Ml Vial IV Q12H CHOLO Time Spent With Patient Time: Total time spent is greater than 50% in coordination of care (as documented) at patient's floor/unit and/or counseling patient: Time with patient: less than 15 minutes
[2020-09-22 15:11] VITALS: BP 165/79; PULSE 80; RESP 20; TEMP 36.7; O2SAT 95
[2020-09-22 19:05] VITALS: BP 158/73; PULSE 90; RESP 20; TEMP 36.6; O2SAT 96
[2020-09-22] MEDS: Acetaminophen 325 MG TABLET 650 MG PO (20:32)
[2020-09-22] MEDS: Estrogens, Conjugated CREAM 30 GM TUBE VAGINAL (20:33)
[2020-09-22] MEDS: ALPRAZolam 0.25 MG TABLET PO (22:10)
[2020-09-23] VITALS (14 sets, daily range): BP systolic 137–170; BP diastolic 54–77; PULSE 64–81; RESP 16–20; TEMP 36.4–37.4; O2SAT 95–100
[2020-09-23] MEDS: Piperacillin Sodium/Tazobactam 3.375 GM in 0.9 % Sodium Chloride 50 ML IV ×4 (04:25→22:04)
[2020-09-23 06:10] LABS: MANUAL DIFF FLAG NO
[2020-09-23 06:15] LABS: Basophils Absolute Auto 0.1 X10*3/uL (0.0-0.2); Basophils Percent Auto 0.7 % (0-2); Eosinophils Absolute Auto 0.2 X10*3/uL (0.0-0.4); Eosinophils Percent Auto 2.7 % (0-4); Hematocrit 27.7 % (37-47); Hemoglobin 8.4 g/dl (12.0-16.0); Imm Gran Abs Auto 0.02 X10*3/uL (0.00-0.03); Imm Gran Pct Auto 0.3 % (0.0-0.4); Lymphocytes Absolute Auto 2.1 X10*3/uL (1.2-4.9); Lymphocytes Percent Auto 27.4 % (20-40); Mean Corpuscular HGB Conc 30.3 g/dl (31.0-35.0); Mean Corpuscular Hemoglobin 24.5 pg (27.0-33.0); Mean Corpuscular Volume 80.8 fL (80-98); Mean Platelet Volume 10.6 fL (9.4-12.3); Monocytes Absolute Auto 1.1 X10*3/uL (0.1-1.2); Monocytes Percent Auto 13.9 % (2-11); Neutrophils Absolute Auto 4.2 X10*3/uL (2.0-8.3); Platelet Count 306 X10*3/uL (160-400); Red Blood Count 3.43 X10*6/uL (4.20-5.50); Red Cell Distribution Width 15.5 % (11.0-16.0); White Blood Count 7.6 X10*3/uL (4.8-10.8)
[2020-09-23] MEDS: atenoloL 50 MG TABLET PO (08:10)
[2020-09-23] MEDS: Fluticasone Propionate Nasal 16 GM SPRAY 2 SPRAY NOSTRIL-B (08:13)
[2020-09-23] MEDS: Levothyroxine Sodium 88 MCG TABLET PO (08:13)
[2020-09-23] MEDS: Nystatin Powder 15 GM BOTTLE 1 APPL TOPICAL ×2 (08:14→22:05)
[2020-09-23] MEDS: 0.9 % Sodium Chloride Flush 3 ML SYRINGE IVFLUSH ×3 (08:15→22:06)
--- NOTE | 2020-09-23 10:07 | P.PNPL_ITS ---
Subjective Subjective Date of Service: 09/23/20 Interval history: The patient was seen on exam. She is feeling a little better. Still tired. Still coughing up some rest the sputum suggesting of some old blood. Denies any more bright red blood per since she was taken off the anticoagulation. She was evaluated from Cardiology. It appeared that her echo looked a little better which is reassuring. No need for further cardiac interventions. She is on cardioprotective patient's. Therefore, will go ahead and perform the bronchoscopy today to assess for any lower respiratory infections that have been treated at this time. Specially looking for fungal infections in view of her recent aspergilloma resection Objective Data Labs CBC & Chem 7: 09/23/20 05:23 09/21/20 15:24 Labs: Laboratory Results - last 24 hr 09/23/20 05:23 WBC 7.6 RBC 3.43 L Hgb 8.4 L Hct 27.7 L MCV 80.8 MCH 24.5 L MCHC 30.3 L RDW 15.5 Plt Count 306 MPV 10.6 Immature Gran % (Auto) 0.3 Neut % (Auto) 55.0 Lymph % (Auto) 27.4 [place] % (Auto) 13.9 H Eos % (Auto) 2.7 Baso % (Auto) 0.7 Lymph # (Auto) 2.1 [place] # (Auto) 1.1 Eos # (Auto) 0.2 Baso # (Auto) 0.1 Abs Immat Gran (auto) 0.02 Absolute Neuts (auto) 4.2 Absolute Nucleated RBC 0.000 Nucleated RBC % (auto) 0.0 Microbiology Microbiology Results: Microbiology 09/22/20 10:52 Sputum - Expectorated Gram Stain - Final 09/19/20 15:08 Blood - Venous Blood Culture - Preliminary No growth after 48 hours. 09/19/20 15:43 Blood - Venous Blood Culture - Preliminary No growth after 48 hours. Review of Systems Constitutional: Reports fatigue, Reports lethargy and Denies night sweats Denies change in voice, Denies lip swelling, Denies mouth pain, Reports nasal congestion, Reports nasal discharge and Denies tongue swelling Cardiovascular: Denies chest pain Respiratory: Reports chest congestion, Reports cough and Reports hemoptysis Gastrointestinal: Denies abdominal pain Musculoskeletal: Denies no additional musculoskeletal complaints Denies Neuro-related abnormal movements Psychiatric: Reports anxiety and Reports depression Endocrine: Reports fatigue Hematologic/Lymphatic: Denies easy bleeding and Denies lymphadenopathy Allergic/Immunologic: Denies lip swelling and Denies tongue swelling Physical Exam Vital Signs: Vital Signs: Last Vital Signs Temp 98.6 F 09/23/20 07:26 Pulse 70 09/23/20 07:26 Resp 18 09/23/20 07:26 BP 151/77 H 09/23/20 07:26 Pulse Ox 95 09/23/20 07:26 Body Mass Index 29.5 Const: General: alert HENMT: General nose exam: Abnormal external nose present and Nasal discharge present Eyes: Pupils: Equal, round and reactive pupils present Neck: Neck: Yes normal visual inspection, Yes full ROM and Yes no lymphadenopathy Chest: Chest palpation & inspection: normal inspection of the chest Resp: Auscultation: diminished lung sounds Cardio: Rate: regular rate Rhythm: regular rhythm Heart sounds: S1 normal heart sound present, S2 normal heart sound present and Murmur heart sound present GI: Palpation (GI): Soft to palpation and nontender Auscultation: normal bowel sounds : General: Yes no CVA tenderness Back/Spine/Pelvis: Back: no CVA tenderness Skin: General skin exam: rashes and/or lesions noted Neuro: Cranial nerves: Yes Equal, round and reactive pupils present Assessment and Plan Assessment and plan (1) Healthcare-associated pneumonia: Status: Acute (2) Chronic respiratory failure: Status: Acute (3) Pneumonia: Status: Acute (4) Hemoptysis: Status: Acute (5) 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 Will likely hold for couple weeks depending on the findings on the bronchoscopy. Time Spent With Patient Time: Total time spent is greater than 50% in coordination of care (as documented) at patient's floor/unit and/or counseling patient: Time with patient: 15 - 24 minutes
--- NOTE | 2020-09-23 10:51 | PM.PNCARD ---
Subjective Subjective Date of Service: 09/23/20 Interval history: No cardiac symptoms. Awaiting bronchoscopy today. Review of Systems Review of Systems Yes all other systems are reviewed and are negative Constitutional: Reports weakness Cardiovascular: Reports as per HPI, Reports no additional cardiovascular complaints, Denies acrocyanosis, Denies cool extremities, Denies painful fingertips, Denies chest pain, Denies chest pain at rest, Denies diaphoresis, Denies syncope, Denies irregular heart rhythm, Denies claudication, Denies leg edema, Denies lightheadedness, Denies palpitations and Reports dyspnea Respiratory: Reports dyspnea Denies syncope and Reports weakness Endocrine: Denies palpitations Physical Exam Vital Signs: Last Vital Signs Temp 98.6 F 09/23/20 07:26 Pulse 70 09/23/20 07:26 Resp 18 09/23/20 07:26 BP 151/77 H 09/23/20 07:26 Pulse Ox 95 09/23/20 07:26 Body Mass Index 29.5 Const General: cooperative, comfortable and no acute distress Orientation/consciousness: patient oriented x3 HENMT Other: Unremarkable Neck Neck: Yes normal visual inspection Chest Chest palpation & inspection: normal inspection of the chest Resp Auscultation: clear to auscultation bilaterally, crackles and no wheezes Cardio Jugular venous distension: no JVD Palpation: normal PMI Heart sounds: S1 normal heart sound present, S2 normal heart sound present, no gallops, Murmur heart sound present systolic at the apex, at the left sternal border and at the right sternal border and no rubs GI Palpation (GI): Soft to palpation Back/Spine/Pelvis Other: unremarkable Skin General skin exam: no rashes or lesions noted Neuro General: patient oriented x3 Extrem General: Yes no clubbing, cyanosis or edema Psych Mental Status: mental status grossly normal Results Labs and Meds Result diagrams: 09/23/20 05:23 09/21/20 15:24 Lab results: Laboratory Results - last 24 hr 09/23/20 05:23 WBC 7.6 RBC 3.43 L Hgb 8.4 L Hct 27.7 L MCV 80.8 MCH 24.5 L MCHC 30.3 L RDW 15.5 Plt Count 306 MPV 10.6 Immature Gran % (Auto) 0.3 Neut % (Auto) 55.0 Lymph % (Auto) 27.4 [place] % (Auto) 13.9 H Eos % (Auto) 2.7 Baso % (Auto) 0.7 Lymph # (Auto) 2.1 [place] # (Auto) 1.1 Eos # (Auto) 0.2 Baso # (Auto) 0.1 Abs Immat Gran (auto) 0.02 Absolute Neuts (auto) 4.2 Absolute Nucleated RBC 0.000 Nucleated RBC % (auto) 0.0 Progress Note: A&P Assessment and plan (1) NSTEMI (non-ST elevated myocardial infarction): Status: Acute (2) Atherosclerotic cardiovascular disease: Status: Acute (3) PAF (paroxysmal atrial fibrillation): Status: Acute (4) Chronic heart failure with preserved ejection fraction (HFpEF): Status: Acute (5) COPD (chronic obstructive pulmonary disease): Status: Acute (6) Pneumonia: Status: Acute (7) Hemoptysis: Status: Acute (8) 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 This could be residual troponin leak from the recent NSTEMI while she was at [facility]. Recurrent NSTEMI is also possible. Cardiac catheterization data reviewed from 09/06/2020; left main-normal; she had 2 vessel disease involving the LAD and RCA. Echocardiogram from [facility] with LVEF 35-45%; distal anteroseptal and inferoseptal severe hypokinesis and apical dyskinesis; severe mitral and calcification and mild aortic valve calcification. Repeat echocardiogram with slightly higher EF and wall motion appears actually improved. As she had no anginal-type symptoms, she was recommended to be on optimal medical therapy. Treat for stable CAD with aspirin, beta-blockers. She states that she preferred atenolol over carvedilol and hence we can switch. Otherwise with regard to statins, she has a history of strong intolerance. Hence upon discharge, she can do Repatha. Otherwise, plans for bronchoscopy today noted. May proceed from cardiac. Once that is cleared, and no hemoptysis can resume anticoagulation. Her blood pressure does not seem optimal and hence may need to add another agent like amlodipine or JOSE inhibitors. Fall Risk Details Current Medications: Current Medications Generic Name Dose Route Start Last Admin Trade Name Freq PRN Reason Stop Dose Admin Acetaminophen 650 mg 09/21/20 23:29 09/22/20 20:32 Acetaminophen 325 Mg Tablet PO 650 mg Q6H PRN Administration Breakthrough Pain Albuterol/Ipratropium 3 ml 09/19/20 23:20 Albuterol/Iprat 2.5/0.5mg 3 Ml Ampul.Neb INHALE RQ6H PRN Shortness of Breath/Wheezing Alprazolam 0.25 mg 09/19/20 23:25 09/22/20 22:10 Alprazolam 0.25 Mg Tablet PO 0.25 mg BID PRN Administration Anxiety Aspirin 81 mg 09/20/20 09:00 09/23/20 08:15 Aspirin Enteric Coated 81 Mg Tablet. PO Not Given DAILY [facility] Atenolol 50 mg 09/22/20 09:40 09/23/20 08:10 Atenolol 50 Mg Tablet PO 50 mg DAILY CHOLO Administration Protocol Docusate Sodium 100 mg 09/21/20 16:46 09/21/20 17:59 Docusate Sodium 100 Mg Capsule PO 100 mg BID PRN Administration Constipation Estrogens Conjugated 1.5 gm 09/20/20 21:00 09/22/20 20:33 Estrogens, Conjugated Cream 30 Gm Tube VAGINAL 1.5 gm BEDTIME CHOLO Administration Fluticasone Propionate 2 spray 09/20/20 09:00 09/23/20 08:13 Fluticasone Propionate Nasal 16 Gm [place] NOSTRIL-B 2 spray DAILY [facility] Administration Guaifenesin/Dextromethorphan 10 ml 09/22/20 11:47 Guaifenesin Dm 100/10/5 Ml 5 Ml Syrup PO Q6H PRN Cough Piperacillin Sod/Tazobactam 50 mls @ 100 mls/hr 09/19/20 23:30 09/23/20 04:53 Sod 3.375 gm/ Sodium Chloride IV Infused Q6H [facility]O Infusion Vancomycin HCl 750 mg/ Sodium 265 mls @ 265 mls/hr 09/23/20 17:00 Chloride IV Q12H CHOLO Levothyroxine Sodium 88 mcg 09/20/20 06:30 09/23/20 08:13 Levothyroxine Sodium 88 Mcg Tablet PO 88 mcg DAILY@0630 [facility]O Administration Loratadine 10 mg 09/20/20 09:00 09/23/20 08:15 Loratadine 10 Mg Tablet PO Not Given DAILY [facility] Nystatin 1 appl 09/21/20 21:00 09/23/20 08:14 Nystatin Powder 15 Gm Bottle TOPICAL 1 appl BID CHOLO Administration Protocol Pharmacy Consult 1 each 09/19/20 14:30 Consult Rx Perform Med Rec MISCELLANE ONCE PRN Consult order Sodium Chloride 3 ml 09/20/20 00:00 09/23/20 08:15 0.9 % Sodium Chloride Flush 3 Ml Syringe IVFLUSH 3 ml QSHIFT CHOLO Administration Time Spent With Patient Time: Total time spent is greater than 50% in coordination of care (as documented) at patient's floor/unit and/or counseling patient: Time with patient: less than 15 minutes
--- NOTE | 2020-09-23 11:26 | CONS_ITS ---
DATE OF SERVICE: 09/21/2020 HISTORY OF PRESENT ILLNESS: This 80-year-old very pleasant female is admitted here since 09/19/2020 with increased cough, expectoration, and shortness of breath of few days' duration. This patient is a known case of chronic obstructive pulmonary disease and is on home oxygen. 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 She did not receive any antifungal medications because the nodule was completely removed. In mid-August, she was at [facility] for more than a week and treated for acute exacerbation of COPD due to pneumonia. After discharged to home, she has been seen by Dr. Arrington in the office with CT scan showing another pulmonary nodule in the right upper lobe and also with increased cough and shortness of breath. Dr. Arrington was planning to do another bronchoscopy on her. She comes to the hospital through emergency room with increased cough and shortness of breath and also abnormal chest x-ray/CT scan of the chest. REVIEW OF SYSTEMS: Indicates that she has marked generalized weakness, cough, and shortness of breath. No chest pain. She has history of mild hemoptysis after she was treated for pneumonia at [facility]. She also has history of increased troponin levels and recent cardiac catheterization at [facility] has shown 2-vessel disease. In general, she remains quite weak at this time. She has no fever, chills, or chest pain. PHYSICAL EXAMINATION: GENERAL: A 80-year-old female of thin build, relatively comfortable, in her bed at this time and does not seem to be in acute respiratory distress. She is on oxygen 2 L/minute. EARS, NOSE, AND THROAT: Examination is normal. NECK: Trachea in midline. No lymphadenopathy. No jugular venous distention. CHEST: Percussion note is resonant. Breath sounds are definitely distant. She has inspiratory crackles over the lower lobes. No wheezes are heard. CARDIAC: Sounds are distant. Rhythm regular. No murmurs or gallops. ABDOMEN: Flat, soft, and nontender. EXTREMITIES: No clubbing or varicosities. Peripheral pulses are faintly palpable. IMAGING: CTA of the chest shows patchy bilateral airspace disease, especially in the lower lobes with distended esophagus. Negative for pulmonary emboli. CLINICAL IMPRESSION: 1. Acute exacerbation of chronic obstructive pulmonary disease. 2. Bilateral lower lobe pneumonia, may be hospital-acquired. 3. 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 4. The patient also has associated coronary artery disease with slight elevation of troponin-I. RECOMMENDATIONS: At this time, we should continue to treat her for bilateral pneumonia, complicating chronic obstructive pulmonary disease. There is a possibility of pulmonary aspirations in her case. Combination of Zosyn and vancomycin is fine at this time, however, if the cultures are negative, then we can discontinue vancomycin and just continue on Zosyn. DuoNeb updrafts q.4 to 6 hours while awake. Oxygen supplementation to keep O2 saturation above 90%. We will re-evaluate her after she had been treated for a few days to decide if she should have bronchoscopy during this hospitalization or later on. Thank you very much for asking me to see this patient. MD HILDA La/MILAD / [phone]
--- NOTE | 2020-09-23 12:05 | MHC.CM.PN ---
DP Female PNA+ Plan is to home with [facility]. Pts spouse will provide transportation. Pt is scheduled for a Bronch today. Per MD rounds anticipate dc 1-2 days.
--- NOTE | 2020-09-23 12:10 | MHC.SHP ---
Pre-Procedural Eval Section B Chief Complaint: PNA Allergies: Allergies Allergy/AdvReac Type Severity Reaction Status Date / Time azithromycin Allergy Severe Vomiting Verified 09/18/20 18:49 Morphine Allergy Severe Vomiting Uncoded 09/19/20 14:16 Opiods Allergy Severe Vomiting Uncoded 09/19/20 14:16 percocet Allergy Severe Vomiting Uncoded 09/19/20 14:16 Percodan Allergy Severe Vomiting Uncoded 09/19/20 14:16 Tylenol #3 Allergy Severe Vomiting Uncoded 09/19/20 14:16 Plan I have reviewed the history and physical and performed a pertinent physical examination on my patient. No changes have occurred unless specified.
[2020-09-23] MEDS: Lactated Ringers 1,000 ML 50 ML IVCONT (12:15)
--- NOTE | 2020-09-23 12:35 | HO.ANESPROP2 ---
FORMERLY [facility] Active Problems Active Problems: All Active Problems (Updated 09/22/20 @ 11:41 by Guillermina Manning MD) Healthcare-associated pneumonia (Acute) Descending thoracic aortic aneurysm (Acute) Chronic heart failure with preserved ejection fraction (HFpEF) (Acute) PAF (paroxysmal atrial fibrillation) (Acute) Atherosclerotic cardiovascular disease (Acute) NSTEMI (non-ST elevated myocardial infarction) (Acute) Chronic respiratory failure (Acute) Pneumonia (Acute) Hemoptysis (Acute) Bronchitis (Acute) COPD (chronic obstructive pulmonary disease) (Acute) Pulmonary nodule (Acute) Past Medical History Medical History Atherosclerotic cardiovascular disease Bronchitis Chronic heart failure with preserved ejection fraction (HFpEF) Chronic respiratory failure COPD (chronic obstructive pulmonary disease) Descending thoracic aortic aneurysm Hemoptysis PAF (paroxysmal atrial fibrillation) Pneumonia Pulmonary nodule Social History Social History Household Members: Spouse Housing: House Alcohol intake: never Smoking Status: Former smoker Tobacco Type: Cigarette Second Hand Smoke Exposure: No service: No Current occupational status: retired Meds Allergies Allergy/AdvReac Type Severity Reaction Status Date / Time azithromycin Allergy Severe Vomiting Verified 09/18/20 18:49 Morphine Allergy Severe Vomiting Uncoded 09/19/20 14:16 Opiods Allergy Severe Vomiting Uncoded 09/19/20 14:16 percocet Allergy Severe Vomiting Uncoded 09/19/20 14:16 Percodan Allergy Severe Vomiting Uncoded 09/19/20 14:16 Tylenol #3 Allergy Severe Vomiting Uncoded 09/19/20 14:16 Home Medications Medication Instructions Recorded Confirmed Type aspirin 81 mg tablet,delayed 81 mg PO DAILY 06/07/20 09/19/20 History release cetirizine 10 mg capsule 10 mg PO DAILY cap 06/07/20 09/19/20 History levothyroxine 88 mcg tablet 88 mcg PO DAILY 06/07/20 09/19/20 History lifitegrast 5 % eye drops in a 1 drp OPHTHALMIC (EYE) BID 06/07/20 09/19/20 History dropperette magnesium glycinate 100 mg tablet 100 mg PO DAILY 06/07/20 09/19/20 History mecobalamin (vitamin B12) 1,000 1,000 mcg PO DAILY 06/07/20 09/19/20 History mcg chewable tablet pantoprazole 40 mg tablet,delayed 40 mg PO DAILY 06/07/20 09/19/20 History release pyridoxine (vitamin B6) 100 mg 50 mg PO BID 06/07/20 09/19/20 History tablet turmeric 400 mg capsule mg PO DAILY 06/07/20 09/18/20 History rivaroxaban 20 mg tablet 20 mg PO DAILY@1700 07/25/20 09/19/20 History albuterol sulfate [ProAir HFA] 2 puff INHALATION Q4H PRN 09/19/20 09/19/20 History alprazolam 0.25 mg PO BID PRN 09/19/20 09/19/20 History carvedilol 6.25 mg PO BID 09/19/20 09/19/20 History conjugated estrogens [Premarin] 1.5 g VAGINAL BEDTIME 09/19/20 09/19/20 History fluticasone propionate 2 spray INTRANASAL DAILY 09/19/20 09/19/20 History tiotropium-olodaterol [Stiolto 2 puff INHALATION DAILY 09/19/20 09/19/20 History Respimat] Exam Exam Date and Time: September 23, 2020 1235 Height,Weight and Vital Signs: Height 5 ft 4 in Weight 78.018 kg Last Vital Signs Temp 99.4 F 09/23/20 12:03 Pulse 67 09/23/20 12:03 Resp 16 09/23/20 12:03 BP 170/67 H 09/23/20 12:03 Pulse Ox 98 09/23/20 12:03 Pertinent Lab Results Pertinent Lab Results: Laboratory Tests 09/19/20 09/19/20 09/19/20 15:08 15:08 15:08 WBC 17.3 H RBC 3.93 L Hgb 9.5 L Hct 31.1 L MCV 79.1 L MCH 24.2 L MCHC 30.5 L RDW 15.6 Plt Count 467 H MPV 10.8 Immature Gran % (Auto) 0.6 H Neut % (Auto) 86.0 H Lymph % (Auto) 5.2 L [place] % (Auto) 7.8 Eos % (Auto) 0.1 Baso % (Auto) 0.3 Lymph # (Auto) 0.9 L [place] # (Auto) 1.4 H Eos # (Auto) 0.0 Baso # (Auto) 0.1 Abs Immat Gran (auto) 0.10 H Absolute Neuts (auto) 14.9 H Absolute Nucleated RBC 0.000 Nucleated RBC % (auto) 0.0 PT INR APTT D-Dimer Sodium Cancelled Potassium Cancelled Chloride Cancelled Carbon Dioxide Cancelled Anion Gap Cancelled BUN Cancelled Creatinine Cancelled Estim Creat Clear Calc Cancelled Estimated GFR Cancelled Random Glucose Cancelled Lactic Acid 1.5 Calcium Cancelled Magnesium Cancelled Total Bilirubin Cancelled Direct Bilirubin Cancelled AST Cancelled ALT Cancelled Alkaline Phosphatase Cancelled Troponin I High Sens B-Natriuretic Peptide Total Protein Cancelled Albumin Cancelled Procalcitonin Urine Color Urine Appearance Urine pH Ur Specific [place] Urine Protein Urine Glucose (UA) Urine Ketones Urine Blood Urine Nitrite Ur Leukocyte Esterase Urine RBC Urine WBC Ur Squamous Epith Cells Urine Bacteria Urine Yeast Vancomycin Trough Coronavirus (PCR) Influenza Type A (PCR) Influenza Type B (PCR) RSV RNA Qual (PCR) 09/19/20 09/19/20 09/19/20 15:08 15:08 15:43 WBC RBC Hgb Hct MCV MCH MCHC RDW Plt Count MPV Immature Gran % (Auto) Neut % (Auto) Lymph % (Auto) [place] % (Auto) Eos % (Auto) Baso % (Auto) Lymph # (Auto) [place] # (Auto) Eos # (Auto) Baso # (Auto) Abs Immat Gran (auto) Absolute Neuts (auto) Absolute Nucleated RBC Nucleated RBC % (auto) PT 19.8 H INR 1.7 H APTT 37.0 D-Dimer 483 Sodium Potassium Chloride Carbon Dioxide Anion Gap BUN Creatinine Estim Creat Clear Calc Estimated GFR Random Glucose Lactic Acid Calcium Magnesium Total Bilirubin Direct Bilirubin AST ALT Alkaline Phosphatase Troponin I High Sens 127.6 H B-Natriuretic Peptide 559 H Total Protein Albumin Procalcitonin Cancelled Urine Color Urine Appearance Urine pH Ur Specific [place] Urine Protein Urine Glucose (UA) Urine Ketones Urine Blood Urine Nitrite Ur Leukocyte Esterase Urine RBC Urine WBC Ur Squamous Epith Cells Urine Bacteria Urine Yeast Vancomycin Trough Coronavirus (PCR) Influenza Type A (PCR) Influenza Type B (PCR) RSV RNA Qual (PCR) 09/19/20 09/19/20 09/19/20 15:43 15:51 18:38 WBC RBC Hgb Hct MCV MCH MCHC RDW Plt Count MPV Immature Gran % (Auto) Neut % (Auto) Lymph % (Auto) [place] % (Auto) Eos % (Auto) Baso % (Auto) Lymph # (Auto) [place] # (Auto) Eos # (Auto) Baso # (Auto) Abs Immat Gran (auto) Absolute Neuts (auto) Absolute Nucleated RBC Nucleated RBC % (auto) PT INR APTT D-Dimer Sodium 137 Potassium 4.3 Chloride 103 Carbon Dioxide 27 Anion Gap 11 L BUN 11 Creatinine 0.73 Estim Creat Clear Calc 63.2 Estimated GFR > 60 Random Glucose 120 H Lactic Acid Calcium 7.8 L Magnesium 1.8 Total Bilirubin 0.6 Direct Bilirubin 0.4 AST 18 ALT 7 Alkaline Phosphatase 44 Troponin I High Sens B-Natriuretic Peptide Total Protein 5.8 L Albumin 3.2 L Procalcitonin Urine Color YELLOW Urine Appearance CLEAR Urine pH 6.0 Ur Specific [place] 1.025 Urine Protein NEG Urine Glucose (UA) NEG Urine Ketones NEG Urine Blood TRACE Urine Nitrite NEG Ur Leukocyte Esterase NEG Urine RBC 0-2 Urine WBC 0 Ur Squamous Epith Cells 1+ Urine Bacteria TRACE Urine Yeast TRACE Vancomycin Trough Coronavirus (PCR) NEGATIVE Influenza Type A (PCR) NEGATIVE Influenza Type B (PCR) NEGATIVE RSV RNA Qual (PCR) NEGATIVE 09/19/20 09/19/20 09/19/20 18:38 20:04 22:15 WBC RBC Hgb Hct MCV MCH MCHC RDW Plt Count MPV Immature Gran % (Auto) Neut % (Auto) Lymph % (Auto) [place] % (Auto) Eos % (Auto) Baso % (Auto) Lymph # (Auto) [place] # (Auto) Eos # (Auto) Baso # (Auto) Abs Immat Gran (auto) Absolute Neuts (auto) Absolute Nucleated RBC Nucleated RBC % (auto) PT INR APTT D-Dimer Sodium Potassium Chloride Carbon Dioxide Anion Gap BUN Creatinine Estim Creat Clear Calc Estimated GFR Random Glucose Lactic Acid Calcium Magnesium Total Bilirubin Direct Bilirubin AST ALT Alkaline Phosphatase Troponin I High Sens 460.5 H D 344.3 H B-Natriuretic Peptide Total Protein Albumin Procalcitonin 0.94 Urine Color Urine Appearance Urine pH Ur Specific [place] Urine Protein Urine Glucose (UA) Urine Ketones Urine Blood Urine Nitrite Ur Leukocyte Esterase Urine RBC Urine WBC Ur Squamous Epith Cells Urine Bacteria Urine Yeast Vancomycin Trough Coronavirus (PCR) Influenza Type A (PCR) Influenza Type B (PCR) RSV RNA Qual (PCR) 09/21/20 09/21/20 09/22/20 15:24 15:24 01:56 WBC 14.8 H RBC 3.79 L Hgb 9.3 L Hct 30.8 L MCV 81.3 MCH 24.5 L MCHC 30.2 L RDW 15.6 Plt Count 388 MPV 10.1 Immature Gran % (Auto) 0.5 H Neut % (Auto) 75.0 H Lymph % (Auto) 13.8 L [place] % (Auto) 10.0 Eos % (Auto) 0.5 Baso % (Auto) 0.2 Lymph # (Auto) 2.0 [place] # (Auto) 1.5 H Eos # (Auto) 0.1 Baso # (Auto) 0.0 Abs Immat Gran (auto) 0.07 H Absolute Neuts (auto) 11.1 H Absolute Nucleated RBC 0.000 Nucleated RBC % (auto) 0.0 PT INR APTT D-Dimer Sodium 139 Potassium 4.4 Chloride 104 Carbon Dioxide 27 Anion Gap 12 BUN 18 H D Creatinine 0.74 Estim Creat Clear Calc 62.3 Estimated GFR > 60 Random Glucose 92 Lactic Acid Calcium 8.8 D Magnesium Total Bilirubin Direct Bilirubin AST ALT Alkaline Phosphatase Troponin I High Sens B-Natriuretic Peptide Total Protein Albumin Procalcitonin Urine Color Urine Appearance Urine pH Ur Specific [place] Urine Protein Urine Glucose (UA) Urine Ketones Urine Blood Urine Nitrite Ur Leukocyte Esterase Urine RBC Urine WBC Ur Squamous Epith Cells Urine Bacteria Urine Yeast Vancomycin Trough 8.7 L Coronavirus (PCR) Influenza Type A (PCR) Influenza Type B (PCR) RSV RNA Qual (PCR) 09/23/20 05:23 WBC 7.6 RBC 3.43 L Hgb 8.4 L Hct 27.7 L MCV 80.8 MCH 24.5 L MCHC 30.3 L RDW 15.5 Plt Count 306 MPV 10.6 Immature Gran % (Auto) 0.3 Neut % (Auto) 55.0 Lymph % (Auto) 27.4 [place] % (Auto) 13.9 H Eos % (Auto) 2.7 Baso % (Auto) 0.7 Lymph # (Auto) 2.1 [place] # (Auto) 1.1 Eos # (Auto) 0.2 Baso # (Auto) 0.1 Abs Immat Gran (auto) 0.02 Absolute Neuts (auto) 4.2 Absolute Nucleated RBC 0.000 Nucleated RBC % (auto) 0.0 PT INR APTT D-Dimer Sodium Potassium Chloride Carbon Dioxide Anion Gap BUN Creatinine Estim Creat Clear Calc Estimated GFR Random Glucose Lactic Acid Calcium Magnesium Total Bilirubin Direct Bilirubin AST ALT Alkaline Phosphatase Troponin I High Sens B-Natriuretic Peptide Total Protein Albumin Procalcitonin Urine Color Urine Appearance Urine pH Ur Specific [place] Urine Protein Urine Glucose (UA) Urine Ketones Urine Blood Urine Nitrite Ur Leukocyte Esterase Urine RBC Urine WBC Ur Squamous Epith Cells Urine Bacteria Urine Yeast Vancomycin Trough Coronavirus (PCR) Influenza Type A (PCR) Influenza Type B (PCR) RSV RNA Qual (PCR) Airway Mallampati Class: II TM Dist: >3cm Neck ROM: Full Loose/Missing/Broken Teeth: Yes Heart: [id number] Lungs: cta b/l Assessment and Plan Assessment Anesthesia Assessment: Anesthesia Plan Discussed, Smoking Cess. Discussed and PAT Visit Final Anesthetic Review NPO: Yes ASA Class: IV Final Preanesthetic Review: No Changes in Pt Med Stat, Meds/Allgs Chart Reviewed, Consent Obtained/Reviewed and Anes Risks/Benef Reviewed Patient Risk: Low Procedure Risk: Low Assessment/Block/Sedation in SS: Assess/Block/Sedation-SS Anesthetic Plan Anesthetic Plan: GA and Agree w/ Assess. and Plan Disposition: Standard PACU
--- NOTE | 2020-09-23 14:27 | OP_ITS ---
SURGEON: Maulik Arrington MD PREOPERATIVE DIAGNOSIS: Pneumonia. POSTOPERATIVE DIAGNOSIS: Pneumonia. PROCEDURE PERFORMED: Bronchoscopy. ESTIMATED BLOOD LOSS: COMPLICATIONS: ANESTHESIA: ASSISTANTS: SPECIMENS: DESCRIPTION OF PROCEDURE: After the patient was intubated, the flexible digital bronchoscope was inserted over the ET tube to the level of the main dominic. The mucosa appeared to be inflamed suggesting some evidence of bronchitis. There was indeed purulent secretions and mucus plugging throughout, left more than right. The bronchoscope was navigated to the entire tracheobronchial tree and examined up to the subsegmental level. She did have some thickening of the dominic in the superior segment of the right lower lobe. A micro brush was introduced into the left lung. Specimen was sent for AFB, fungal, and Gram stain and culture. The bronchial washings were collected bilaterally throughout the airways with removing mucus plugging and that was sent for cytology and also to further microbiology evaluation. At the end of the procedure, the patient did have an area thickening on the superior segment of the right lower lobe, so 2 endobronchial biopsies were collected in formalin and sent to Pathology. Iced saline was used with good hemostasis. No evidence of any bleeding at the end of the procedure. To note, no evidence of any active bleeding of the airways or endobronchial lesions that were causing bleeding, however, she did have some blood-tinged return from the left upper lobe, likely the source of bleeding. It appears that the source of bleeding has resolved and now has just some aiyana looking alveolar drainage. The bronchoscope was then removed. The total endoscopic time was approximately 50 12 minutes. The patient tolerated the procedure well. INTERPRETATION: 1. Successful bronchial washings and therapeutic cleaning of the airways. 2. Washings bilaterally for Gram stain, culture, and cytology bilaterally, bilateral lung washings. 3. Left lung micro brush. 4. Endobronchial biopsies of the superior segment of the right lower lobe. ASA CLASSIFICATION: 4. PREBRONCHOSCOPY EVALUATION: The patient was seen and examined. The patient did have some issues with hemoptysis and recurrent pneumonias. She did have an NE at [facility]. Cardiology did evaluate her and did not need an additional therapy. Likely, elevation of the troponin is due to the extension from her previous NE. With that being said, the patient does have an increased risk for periprocedural complications. The patient does have a condition including pneumonia and hemoptysis that needs to be evaluated now as opposed to waiting at this time. The patient is consented for surgery. She understands the risks. MD ANA MARÍA Jewell/MILAD / [phone]
[2020-09-23] MEDS: vancomycin HCL 750 MG in 0.9 % Sodium Chloride 250 ML 265 MG IV (16:48)
--- NOTE | 2020-09-23 17:10 | HO.PM.IMPN ---
Subjective Subjective Date of Service: 09/23/20 Interval History: Patient seen and examined at bedside patient reported shortness of breath improving Review of system General no headache no dizziness no fever chills, both feet pain related to neuropathy. CVS no chest pain, no palpitation. Respiratory cough productive of blood tinged sputum, no shortness of breath Gastrointestinal no nausea, no vomiting, no abdominal pain Physical Exam Vital Signs: Vital Signs: Last Vital Signs Temp 98.8 F 09/23/20 15:58 Pulse 64 09/23/20 15:58 Resp 20 09/23/20 15:58 BP 142/62 H 09/23/20 15:58 Pulse Ox 98 09/23/20 15:58 Body Mass Index 29.5 Const: General: cooperative, comfortable, no acute distress and alert Orientation/consciousness: patient oriented x3 Limitations: No language barrier HENMT: Other: Unremarkable Head: Yes normal to inspection General nose exam: Abnormal external nose present and Nasal discharge present Mouth: oropharynx normal Eyes: General: appearance normal, both eyes and all related structures Pupils: Equal, round and reactive pupils present Neck: Neck: Yes normal visual inspection, Yes full ROM and Yes no lymphadenopathy Chest: Chest palpation & inspection: normal inspection of the chest Resp: Effort & Inspection: normal respiratory effort Auscultation: clear to auscultation bilaterally, crackles, no wheezes and diminished lung sounds Cardio: Jugular venous distension: no JVD Palpation: normal PMI Rate: regular rate Rhythm: regular rhythm Heart sounds: S1 normal heart sound present, S2 normal heart sound present, no gallops, Murmur heart sound present systolic at the apex, at the left sternal border and at the right sternal border and no rubs GI: Palpation (GI): Soft to palpation and nontender Auscultation: normal bowel sounds : General: Yes no CVA tenderness Back/Spine/Pelvis: Other: unremarkable Back: no CVA tenderness Skin: General skin exam: no rashes or lesions noted Neuro: General: patient oriented x3 Cranial nerves: Yes Equal, round and reactive pupils present Extrem: General: Yes normal to inspection and Yes no clubbing, cyanosis or edema Psych: Mental Status: mental status grossly normal Objective Data Current Medications Generic Name Dose Route Start Last Admin Trade Name Freq PRN Reason Stop Dose Admin Acetaminophen 650 mg 09/21/20 23:29 09/22/20 20:32 Acetaminophen 325 Mg Tablet PO 650 mg Q6H PRN Administration Breakthrough Pain Albuterol/Ipratropium 3 ml 09/19/20 23:20 Albuterol/Iprat 2.5/0.5mg 3 Ml Ampul.Neb INHALE RQ6H PRN Shortness of Breath/Wheezing Alprazolam 0.25 mg 09/19/20 23:25 09/22/20 22:10 Alprazolam 0.25 Mg Tablet PO 0.25 mg BID PRN Administration Anxiety Aspirin 81 mg 09/20/20 09:00 09/23/20 08:15 Aspirin Enteric Coated 81 Mg Tablet. PO Not Given DAILY CHOLO Atenolol 50 mg 09/22/20 09:40 09/23/20 08:10 Atenolol 50 Mg Tablet PO 50 mg DAILY CHOLO Administration Protocol Docusate Sodium 100 mg 09/21/20 16:46 09/21/20 17:59 Docusate Sodium 100 Mg Capsule PO 100 mg BID PRN Administration Constipation Estrogens Conjugated 1.5 gm 09/20/20 21:00 09/22/20 20:33 Estrogens, Conjugated Cream 30 Gm Tube VAGINAL 1.5 gm BEDTIME CHOLO Administration Fentanyl 50 mcg 09/23/20 12:34 Fentanyl Citrate/Pf 100 Mcg/2 Ml Vial IVPUSH Q5M PRN Pain, Severe (Pain Scale 7-10) Fluticasone Propionate 2 spray 09/20/20 09:00 09/23/20 08:13 Fluticasone Propionate Nasal 16 Gm [place] NOSTRIL-B 2 spray DAILY CHOLO Administration Guaifenesin/Dextromethorphan 10 ml 09/22/20 11:47 Guaifenesin Dm 100/10/5 Ml 5 Ml Syrup PO Q6H PRN Cough Piperacillin Sod/Tazobactam 50 mls @ 100 mls/hr 09/19/20 23:30 09/23/20 12:12 Sod 3.375 gm/ Sodium Chloride IV Infused Q6H CHOLO Infusion Vancomycin HCl 750 mg/ Sodium 265 mls @ 265 mls/hr 09/23/20 17:00 09/23/20 16:48 Chloride IV 265 mls/hr Q12H CHOLO Administration Lactated Ringer's 1,000 mls @ 50 mls/hr 09/23/20 12:45 09/23/20 12:15 Lr IVCONT 50 mls/hr .Q20H CHOLO Administration Levothyroxine Sodium 88 mcg 09/20/20 06:30 09/23/20 08:13 Levothyroxine Sodium 88 Mcg Tablet PO 88 mcg DAILY@0630 CHOLO Administration Loratadine 10 mg 09/20/20 09:00 09/23/20 08:15 Loratadine 10 Mg Tablet PO Not Given DAILY CHOLO Nystatin 1 appl 09/21/20 21:00 09/23/20 08:14 Nystatin Powder 15 Gm Bottle TOPICAL 1 appl BID CHOLO Administration Protocol Ondansetron HCl 4 mg 09/23/20 12:34 Ondansetron Hcl 4 Mg/2 Ml Vial IVPUSH ONCE PRN Nausea and Vomiting Pharmacy Consult 1 each 09/19/20 14:30 Consult Rx Perform Med Rec MISCELLANE ONCE PRN Consult order Sodium Chloride 3 ml 09/20/20 00:00 09/23/20 16:50 0.9 % Sodium Chloride Flush 3 Ml Syringe IVFLUSH 3 ml QSHIFT CHOLO Administration Labs CBC & Chem 7: 09/23/20 05:23 09/21/20 15:24 Microbiology Microbiology Results: Microbiology 09/22/20 10:52 Sputum - Expectorated Gram Stain - Final 09/22/20 10:52 Sputum - Expectorated Sputum Culture - Preliminary Culture in progress. 09/19/20 15:08 Blood - Venous Blood Culture - Preliminary No growth after 48 hours. 09/19/20 15:43 Blood - Venous Blood Culture - Preliminary No growth after 48 hours. Assessment and Plan (1) Healthcare-associated pneumonia: Status: Acute (2) Chronic heart failure with preserved ejection fraction (HFpEF): Status: Acute (3) PAF (paroxysmal atrial fibrillation): Status: Acute (4) Atherosclerotic cardiovascular disease: Status: Acute (5) Chronic respiratory failure: Status: Acute (6) Pneumonia: Status: Acute (7) Hemoptysis: Status: Acute (8) COPD (chronic obstructive pulmonary disease): Status: Acute Assessment and Plan: 80-year-old female with a past medical history of hypertension, hyperlipidemia, atrial fibrillation on Xarelto, diastolic CHF, CAD-recent NSTEMI/cardiac catheterization on 09/06/2020; 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 Noted to have pneumonia on the CT scan admitted to the hospital for further management. Health-care associated pneumonia: No sepsis, No fever , no chills, oxygenation stable on room air 95%, WBC trending down, continue vanc and Zosyn day 3, trough low 8.7 therefore dose adjusted continue supportive care with cough medication, incentive spirometry and as needed oxygen COVID-19 negative persistent mild Blood-tinged sputum Likely from pneumonia, H&H stable continue close clinical follow-up , continue to hold Xarelto Patient seen by Dr. Greenberg he agrees with above treatment, sputum culture pending, blood culture x2 negative, follow CBC and Vanco trough Initially discuss case with Dr. Arrington he recommended bronchoscopy on Wednesday therefore will make patient NPO and follow-up with pulmonology Elevated troponins: No chest pain s/p recent NSTEMI and cardiac catheterization on 09/06/2020,was medically managed with heparin drip at [facility], Elevated troponin on admission now trending down likely from recent non ST-elevation ND , echocardiogram from [facility] showed EF of 35-45% distal anterior septal and inferior septal hypokinesis and apical dyskinesis, patient seen by Cardiology they recommend to continue aspirin, beta-blockers, not on statins due to intolerance, to resume repatha upon discharge will resume Xarelto if patient noted to have no further bouts of hemoptysis and cleared by pulmonology repeat echocardiogram shows improvement in EF and wall motion, patient seen by Dr. Garay he recommend to continue aspirin and beta blockers and since patient feels weak after Coreg will switch her to atenolol 50 mg. If BP remains elevated will further adjust the dose Atrial fibrillation: Currently rate controlled changed to atenolol, Will hold Xarelto for now follow hematocrit , will resume after bronchoscopy Diastolic CHF: Currently stable. Continue home medications. History of COPD, no acute exacerbation, continue DuoNeb prn and oxygen support, cough syrup as needed being followed by pulmonology. Hypothyroidism continue Synthroid Code status Full code
[2020-09-23] MEDS: Dicyclomine HCl 10 MG CAPSULE PO (22:22)
[2020-09-24] MEDS: ALPRAZolam 0.25 MG TABLET PO (00:27)
[2020-09-24 03:44] VITALS: BP 142/61; PULSE 70; RESP 18; TEMP 36.4; O2SAT 92
[2020-09-24] MEDS: Piperacillin Sodium/Tazobactam 3.375 GM in 0.9 % Sodium Chloride 50 ML IV ×2 (05:34→11:10)
[2020-09-24] MEDS: Levothyroxine Sodium 88 MCG TABLET PO (05:34)
[2020-09-24] MEDS: vancomycin HCL 750 MG in 0.9 % Sodium Chloride 250 ML 265 MG IV (06:08)
--- NOTE | 2020-09-24 06:39 | HO.POSTANES ---
Post Anesthesia Evaluation Post Anesthesia Evaluation Vital Signs: Vital Signs Temp Pulse Resp BP Pulse Ox 09/24/20 03:44 97.5 F 70 18 142/61 H 92 09/23/20 23:25 98.7 F 81 18 154/68 H 95 Anesthesia: General Mental Status: Awake Pain Control: Satisfactory Nausea/Vomiting: None Hydration: Adequate Anesthesia-Related Issues: No Anes. Related Issues
[2020-09-24 07:29] VITALS: BP 153/74; PULSE 88; RESP 18; TEMP 36.2; O2SAT 95
[2020-09-24] MEDS: atenoloL 50 MG TABLET PO (08:22)
[2020-09-24] MEDS: 0.9 % Sodium Chloride Flush 3 ML SYRINGE IVFLUSH (08:22)
[2020-09-24] MEDS: Loratadine 10 MG TABLET PO (08:22)
[2020-09-24] MEDS: Fluticasone Propionate Nasal 16 GM SPRAY 2 SPRAY NOSTRIL-B (08:22)
[2020-09-24] MEDS: Aspirin Enteric Coated 81 MG TABLET.DR PO (08:22)
[2020-09-24] MEDS: Nystatin Powder 15 GM BOTTLE 1 APPL TOPICAL (08:23)
--- NOTE | 2020-09-24 10:27 | P.PNPL_ITS ---
Subjective Subjective Date of Service: 09/24/20 Interval history: The patient was seen on exam. She is status post bronchoscopy. She did have mucus secretions and some aiyana looking phlegm from the left upper lobe. No active bleeding noted. No real endobronchial disease although she did have some thickening to the dominic and the superior segment and endobronchial biopsy was collected. Microbiology specimens were sent for fungal, AFB and Gram staining culture specially to assess for her history of Aspergillus. Afterwards she did undergo a barium swallow those very abnormal with significant dilation and also evidence of potential achalasia. The patient will be evaluated by GI hopefully today before she goes home. In the meantime will switch over to oral antibiotics and she can follow-up. In view of her hemoptysis I would recommend she hold her anticoagulation until she has completed her course of antibiotics should be 2 weeks. She will follow-up with me in 2 weeks. Objective Data Labs CBC & Chem 7: 09/23/20 05:23 09/21/20 15:24 Microbiology Microbiology Results: Microbiology 09/23/20 13:10 Brushing - Lt Lung (Pleural) Gram Stain - Final 09/23/20 13:10 Brushing - Lt Lung (Pleural) Routine Culture - Preliminary No growth to date. 09/23/20 13:10 Washing - Wash, bilateral Gram Stain - Final 09/23/20 13:10 Washing - Wash, bilateral Routine Culture - Preliminary No growth to date. 09/22/20 10:52 Sputum - Expectorated Gram Stain - Final 09/22/20 10:52 Sputum - Expectorated Sputum Culture - Final 09/19/20 15:08 Blood - Venous Blood Culture - Preliminary No growth after 48 hours. 09/19/20 15:43 Blood - Venous Blood Culture - Preliminary No growth after 48 hours. Review of Systems Constitutional: Denies night sweats Denies change in voice, Reports dysphagia, Denies lip swelling, Denies mouth pain, Reports nasal congestion, Reports nasal discharge and Denies tongue swelling Cardiovascular: Denies chest pain Respiratory: Reports chest congestion and Reports cough Gastrointestinal: Denies abdominal pain, Reports dysphagia, Reports early satiety and Reports dyspepsia Musculoskeletal: Denies no additional musculoskeletal complaints Denies Neuro-related abnormal movements Psychiatric: Denies no additional psychiatric complaints Hematologic/Lymphatic: Denies easy bleeding and Denies lymphadenopathy Allergic/Immunologic: Denies lip swelling and Denies tongue swelling Physical Exam Vital Signs: Vital Signs: Last Vital Signs Temp 97.2 F 09/24/20 07:29 Pulse 88 09/24/20 07:29 Resp 18 09/24/20 07:29 BP 153/74 H 09/24/20 07:29 Pulse Ox 95 09/24/20 07:29 Body Mass Index 29.5 Const: General: alert HENMT: General nose exam: Abnormal external nose present and Nasal discharge present Eyes: Pupils: Equal, round and reactive pupils present Neck: Neck: Yes normal visual inspection, Yes full ROM and Yes no lym phadenopathy Chest: Chest palpation & inspection: normal inspection of the chest Resp: Auscultation: diminished lung sounds Cardio: Rate: regular rate Rhythm: regular rhythm Heart sounds: S1 normal heart sound present and S2 normal heart sound present GI: Palpation (GI): Soft to palpation and nontender Auscultation: normal bowel sounds : General: Yes no CVA tenderness Back/Spine/Pelvis: Back: no CVA tenderness Skin: General skin exam: rashes and/or lesions noted Neuro: Cranial nerves: Yes Equal, round and reactive pupils present Assessment and Plan Assessment and plan (1) PAF (paroxysmal atrial fibrillation): Status: Acute (2) COPD (chronic obstructive pulmonary disease): Status: Acute (3) 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 Follow-up with thoracic surgery after her lung resection. I waiting microbiology and cytology from the bronchoscopy. GI evaluation for potential achalasia and esophageal dysmotility resulting in recurrent lower respiratory infections due to aspiration. Time Spent With Patient Time: Total time spent is greater than 50% in coordination of care (as documented) at patient's floor/unit and/or counseling patient: Time with patient: 15 - 24 minutes
--- NOTE | 2020-09-24 10:37 | P.PNCA_ITS ---
Subjective Subjective Date of Service: 09/24/20 Interval history: She states that she feels okay. No angina or any other specific cardiac complaints. Review of Systems Review of Systems Yes all other systems are reviewed and are negative Constitutional: Reports weakness Cardiovascular: Reports as per HPI, Reports no additional cardiovascular complaints, Denies acrocyanosis, Denies cool extremities, Denies painful fingertips, Denies chest pain, Denies chest pain at rest, Denies diaphoresis, Denies syncope, Denies irregular heart rhythm, Denies claudication, Denies leg edema, Denies lightheadedness, Denies palpitations and Reports dyspnea Respiratory: Reports dyspnea Denies syncope and Reports weakness Endocrine: Denies palpitations Physical Exam Vital Signs: Last Vital Signs Temp 97.2 F 09/24/20 07:29 Pulse 88 09/24/20 07:29 Resp 18 09/24/20 07:29 BP 153/74 H 09/24/20 07:29 Pulse Ox 95 09/24/20 07:29 Body Mass Index 29.5 Const General: cooperative, comfortable and no acute distress Orientation/consciousness: patient oriented x3 HENMT Other: Unremarkable Neck Neck: Yes normal visual inspection Chest Chest palpation & inspection: normal inspection of the chest Resp Auscultation: clear to auscultation bilaterally, crackles and no wheezes Cardio Jugular venous distension: no JVD Palpation: normal PMI Heart sounds: S1 normal heart sound present, S2 normal heart sound present, no gallops, Murmur heart sound present systolic at the apex, at the left sternal border and at the right sternal border and no rubs GI Palpation (GI): Soft to palpation Back/Spine/Pelvis Other: unremarkable Skin General skin exam: no rashes or lesions noted Neuro General: patient oriented x3 Extrem General: Yes no clubbing, cyanosis or edema Psych Mental Status: mental status grossly normal Results Labs and Meds Result diagrams: 09/23/20 05:23 09/21/20 15:24 Imaging Radiologist's impression: Impressions Barium Swallow X-Ray 09/23/20 15:25 IMPRESSION: Markedly dilated thoracic esophagus and abnormal esophageal motility. There is narrowing and beak like appearance of the distal thoracic esophagus at the GE junction. Appearances is suggestive of achalasia. The patient refused administration of barium tablet. There is marked retrograde peristalsis in the esophagus. Gastroesophageal reflux was not observed however the patient could not lie supine. 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 Cardiac catheterization data reviewed from 09/06/2020; left main-normal; she had 2 vessel disease involving the LAD and RCA. Echocardiogram from [facility] with LVEF 35-45%; distal anteroseptal and inferoseptal severe hypokinesis and apical dyskinesis; severe mitral and calcification and mild aortic valve calcification. Repeat echocardiogram with s lightly higher EF and wall motion appears actually improved. As she had no anginal-type symptoms, she was recommended to be on optimal medical therapy. Treat for stable CAD with aspirin, beta-blockers. She states that she preferred atenolol over carvedilol and hence switched. Otherwise with regard to statins, she has a history of strong intolerance. Hence upon discharge, she can take Repatha/Praluent. She has had bronchoscopy and discussed with Dr. Arrington. He would like her to hold anticoagulation for the next few days to avoid any hemoptysis. Resume after the recommended time. Otherwise, her blood pressure is on the higher side today but when I speak to her about this she states that it significant lower at home. If that were the case, then no changes but if the home blood pressures are also going to be running high then she will need JOSE inhibitors or ARB/other medications for blood pressure management. Otherwise, she may be discharged from cardiac. She would like to see Dr. Osei from [facility]. Fall Risk Details Current Medications: Current Medications Generic Name Dose Route Start Last Admin Trade Name Freq PRN Reason Stop Dose Admin Acetaminophen 650 mg 09/21/20 23:29 09/22/20 20:32 Acetaminophen 325 Mg Tablet PO 650 mg Q6H PRN Administration Breakthrough Pain Albuterol/Ipratropium 3 ml 09/19/20 23:20 Albuterol/Iprat 2.5/0.5mg 3 Ml Ampul.Neb INHALE RQ6H PRN Shortness of Breath/Wheezing Alprazolam 0.25 mg 09/19/20 23:25 09/24/20 00:27 Alprazolam 0.25 Mg Tablet PO 0.25 mg BID PRN Administration Anxiety Aspirin 81 mg 09/20/20 09:00 09/24/20 08:22 Aspirin Enteric Coated 81 Mg Tablet.Dr PO 81 mg DAILY CHOLO Administration Atenolol 50 mg 09/22/20 09:40 09/24/20 08:22 Atenolol 50 Mg Tablet PO 50 mg DAILY CHOLO Administration Protocol Dicyclomine HCl 10 mg 09/23/20 22:04 09/23/20 22:22 Dicyclomine Hcl 10 Mg Capsule PO 10 mg QIDACHS PRN Administration abdoinal spasm Docusate Sodium 100 mg 09/21/20 16:46 09/21/20 17:59 Docusate Sodium 100 Mg Capsule PO 100 mg BID PRN Administration Constipation Estrogens Conjugated 1.5 gm 09/20/20 21:00 09/23/20 22:05 Estrogens, Conjugated Cream 30 Gm Tube VAGINAL Not Given BEDTIME CHOLO Fentanyl 50 mcg 09/23/20 12:34 Fentanyl Citrate/Pf 100 Mcg/2 Ml Vial IVPUSH Q5M PRN Pain, Severe (Pain Scale 7-10) Fluticasone Propionate 2 spray 09/20/20 09:00 09/24/20 08:22 Fluticasone Propionate Nasal 16 Gm Dillon NOSTRIL-B 2 spray DAILY CHOLO Administration Guaifenesin/Dextromethorphan 10 ml 09/22/20 11:47 Guaifenesin Dm 100/10/5 Ml 5 Ml Syrup PO Q6H PRN Cough Piperacillin Sod/Tazobactam 50 mls @ 100 mls/hr 09/19/20 23:30 09/24/20 06:38 Sod 3.375 gm/ Sodium Chloride IV Infused Q6H CHOLO Infusion Vancomycin HCl 750 mg/ Sodium 265 mls @ 265 mls/hr 09/23/20 17:00 09/24/20 07:35 Chloride IV Infused Q12H CHOLO Infusion Lactated Ringer's 1,000 mls @ 50 mls/hr 09/23/20 12:45 09/24/20 08:40 Lr IVCONT Not Given .Q20H CHOLO Levothyroxine Sodium 88 mcg 09/20/20 06:30 09/24/20 05:34 Levothyroxine Sodium 88 Mcg Tablet PO 88 mcg DAILY@0630 CHOLO Administration Loratadine 10 mg 09/20/20 09:00 09/24/20 08:22 Loratadine 10 Mg Tablet PO 10 mg DAILY CHOLO Administration Nystatin 1 appl 09/21/20 21:00 09/24/20 08:23 Nystatin Powder 15 Gm Bottle TOPICAL 1 appl BID CHOLO Administration Protocol Ondansetron HCl 4 mg 09/23/20 12:34 Ondansetron Hcl 4 Mg/2 Ml Vial IVPUSH ONCE PRN Nausea and Vomiting Pharmacy Consult 1 each 09/19/20 14:30 Consult Rx Perform Med Rec MISCELLANE ONCE PRN Consult order Sodium Chloride 3 ml 09/20/20 00:00 09/24/20 08:22 0.9 % Sodium Chloride Flush 3 Ml Syringe IVFLUSH 3 ml QSHIFT CHOLO Administration Time Spent With Patient Time: Total time spent is greater than 50% in coordination of care (as documented) at patient's floor/unit and/or counseling patient: Time with patient: less than 15 minutes
[2020-09-24 11:23] VITALS: BP 149/68; PULSE 66; RESP 18; TEMP 36.7; O2SAT 92
--- NOTE | 2020-09-24 11:40 | MHC.CM.PN ---
DC TODAY Female 80DX PNA. Pt is DC to home no services. S/P Barium swallow 09/23. The test indicated a motility problem. She will follow up outpt with her established GI MD. Family transportation.
--- NOTE | 2020-09-24 11:44 | PM.DS ---
DS: Providers Provider Date of Service: 09/26/20 Date of admission: 09/19/20 23:20 Primary care physician: Quentin Freeman MD Consults: 09/19/20 23:20 Consult to Cardiology Routine Consulting Provider: Gildardo Garay Reason for consultation: high trops; recent NSTEMI; s/p cath at [facility]. Consult to Pulmonology Routine Consulting Provider: Maulik Arrington Reason for consultation: PNA; Hemoptysis;?Bronchoscopy 09/19/20 23:57 Consult to Infectious Diseases Routine Consulting Provider: Amber Tran Reason for consultation: PNA; hx Fungal infection 09/23/20 16:14 Consult to Gastroenterology Routine Consulting Provider: Akash Nguyen Reason for consultation: abnormal barium swallow 09/24/20 08:34 Consult to Gastroenterology Routine Consulting Provider: [facility] Reason for consultation: A[place] and recurrent pneumonia DS: Diagnosis Discharge Diagnosis (1) NSTEMI (non-ST elevated myocardial infarction): Status: Resolved (2) Atherosclerotic cardiovascular disease: Status: Acute (3) PAF (paroxysmal atrial fibrillation): Status: Acute (4) Chronic heart failure with preserved ejection fraction (HFpEF): Status: Acute (5) COPD (chronic obstructive pulmonary disease): Status: Acute (6) Pneumonia: Status: Resolved (7) Hemoptysis: Status: Resolved (8) Descending thoracic aortic aneurysm: Status: Acute Problem details: s/p repair DS: Medications Discharge Medications Home Medications: Home Medications Medication Instructions Recorded Confirmed aspirin 81 mg tablet,delayed 81 mg PO DAILY 06/07/20 09/19/20 release cetirizine 10 mg capsule 10 mg PO DAILY cap 06/07/20 09/19/20 levothyroxine 88 mcg tablet 88 mcg PO DAILY 06/07/20 09/19/20 lifitegrast 5 % eye drops in a 1 drp OPHTHALMIC (EYE) BID 06/07/20 09/19/20 dropperette magnesium glycinate 100 mg tablet 100 mg PO DAILY 06/07/20 09/19/20 mecobalamin (vitamin B12) 1,000 1,000 mcg PO DAILY 06/07/20 09/19/20 mcg chewable tablet pantoprazole 40 mg tablet,delayed 40 mg PO DAILY 06/07/20 09/19/20 release pyridoxine (vitamin B6) 100 mg 50 mg PO BID 10/23/20 02/04/21 tablet turmeric 400 mg capsule mg PO DAILY 06/07/20 09/18/20 rivaroxaban 20 mg tablet 20 mg PO DAILY@1700 07/25/20 09/19/20 Premarin 1.5 g VAGINAL BEDTIME 09/19/20 09/19/20 Stiolto Respimat 2 puff INHALATION DAILY 09/19/20 09/19/20 albuterol sulfate [ProAir HFA] 2 puff INHALATION Q4H PRN 09/19/20 09/19/20 alprazolam 0.25 mg PO BID PRN 09/19/20 09/19/20 fluticasone propionate 2 spray INTRANASAL DAILY 09/19/20 09/19/20 Previous Rx's Medication Instructions Recorded amoxicillin-pot clavulanate 1 tab PO BID #14 tab 09/24/20 [Augmentin] atenolol 50 mg PO DAILY #30 tab 09/24/20 pantoprazole [Protonix] 20 mg PO BID #60 tab 09/24/20 DS: Summary Hospital Course Hospital Course: HPI 80-year-old female with a past medical history of hypertension, hyperlipidemia, COPD on 2 L of home oxygen, diastolic CHF,AAA s/pEVAR, 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 Denies any chest pain palpitations lightheadedness or dizziness. After patient was seen by Dr. Murphy Willingham from pulmonology-plan for bronchoscopy. Patient also complains of cough with brownish sputum and noticed blood-tinged sputum as well. Review of all other systems is negative except mentioned above ER course: Per ER team patient's COVID negative, CT angio showed no evidence of pulmonary embolism but noticed patchy infiltrates consistent with pneumonia. Patient troponin was elevated; EKG was nonischemic except for T-wave inversions in inferior leads and V3 V4 V5; ER team spoke to Dr. ko mahajan from Cardiology who recommended admission to the [facility] an echocardiogram in the morning. Follow-up troponin is trending down. Hospital course 80 y old female admitted with pneumonia and NSTEMI For pneumonia COVID was negative patient was started on broad-spectrum antibiotic cultures were sent, patient was continued on oxygen supplementation, patient also noted to have hemoptysis Xarelto was held per Cardiology and pulmonology, patient underwent bronchoscopy, cultures from bronchial washing was sent, patient's breathing improved, cultures remain negative, patient was stable switched to p.o. Augmentin on discharge and continued on oxygen supplemental, patient also noted to have NSTEMI likely demand mediated patient was continued on managed medical management per Cardiology, troponin were mildly elevated with flat trend, patient's Coreg was switched to atenolol per Cardiology as patient was reporting weakness after taking Coreg, patient was switched to atenolol on discharge patient was stable discharged home on p.o. Augmentin, patient will hold Xarelto for 1 week and will follow-up with Dr. Arrington as outpatient for follow-up on cultures patient will also follow-up with his supervisor rework as outpatient Time Spent with Patient Time attestation: Total time spent providing and/or coordinating discharge services: Discharge coordination time: Greater than 30 minutes Physical Exam Vital Signs: Vital Signs: Last Vital Signs Temp 98.0 F 09/24/20 11:23 Pulse 66 09/24/20 11:23 Resp 18 09/24/20 11:23 BP 149/68 H 09/24/20 11:23 Pulse Ox 92 09/24/20 11:23 Body Mass Index 29.5 DS: Data Data Completed and Pending Pending studies at discharge: Pending at discharge 09/23/20 13:35 Cytology [PTH] Stat 09/23/20 13:39 Surgical [PTH] Stat Labs on day of discharge: Laboratory Tests 09/19/20 09/19/20 09/19/20 15:08 15:08 15:08 WBC 17.3 H RBC 3.93 L Hgb 9.5 L Hct 31.1 L MCV 79.1 L MCH 24.2 L MCHC 30.5 L RDW 15.6 Plt Count 467 H MPV 10.8 Immature Gran % (Auto) 0.6 H Neut % (Auto) 86.0 H Lymph % (Auto) 5.2 L [place] % (Auto) 7.8 Eos % (Auto) 0.1 Baso % (Auto) 0.3 Lymph # (Auto) 0.9 L [place] # (Auto) 1.4 H Eos # (Auto) 0.0 Baso # (Auto) 0.1 Abs Immat Gran (auto) 0.10 H Absolute Neuts (auto) 14.9 H Absolute Nucleated RBC 0.000 Nucleated RBC % (auto) 0.0 PT INR APTT D-Dimer Sodium Cancelled Potassium Cancelled Chloride Cancelled Carbon Dioxide Cancelled Anion Gap Cancelled BUN Cancelled Creatinine Cancelled Estim Creat Clear Calc Cancelled Estimated GFR Cancelled Random Glucose Cancelled Lactic Acid 1.5 Calcium Cancelled Magnesium Cancelled Total Bilirubin Cancelled Direct Bilirubin Cancelled AST Cancelled ALT Cancelled Alkaline Phosphatase Cancelled Troponin I High Sens B-Natriuretic Peptide Total Protein Cancelled Albumin Cancelled Procalcitonin Urine Color Urine Appearance Urine pH Ur Specific [place] Urine Protein Urine Glucose (UA) Urine Ketones Urine Blood Urine Nitrite Ur Leukocyte Esterase Urine RBC Urine WBC Ur Squamous Epith Cells Urine Bacteria Urine Yeast Vancomycin Trough Coronavirus (PCR) Influenza Type A (PCR) Influenza Type B (PCR) RSV RNA Qual (PCR) 09/19/20 09/19/20 09/19/20 15:08 15:08 15:43 WBC RBC Hgb Hct MCV MCH MCHC RDW Plt Count MPV Immature Gran % (Auto) Neut % (Auto) Lymph % (Auto) [place] % (Auto) Eos % (Auto) Baso % (Auto) Lymph # (Auto) [place] # (Auto) Eos # (Auto) Baso # (Auto) Abs Immat Gran (auto) Absolute Neuts (auto) Absolute Nucleated RBC Nucleated RBC % (auto) PT 19.8 H INR 1.7 H APTT 37.0 D-Dimer 483 Sodium Potassium Chloride Carbon Dioxide Anion Gap BUN Creatinine Estim Creat Clear Calc Estimated GFR Random Glucose Lactic Acid Calcium Magnesium Total Bilirubin Direct Bilirubin AST ALT Alkaline Phosphatase Troponin I High Sens 127.6 H B-Natriuretic Peptide 559 H Total Protein Albumin Procalcitonin Cancelled Urine Color Urine Appearance Urine pH Ur Specific [place] Urine Protein Urine Glucose (UA) Urine Ketones Urine Blood Urine Nitrite Ur Leukocyte Esterase Urine RBC Urine WBC Ur Squamous Epith Cells Urine Bacteria Urine Yeast Vancomycin Trough Coronavirus (PCR) Influenza Type A (PCR) Influenza Type B (PCR) RSV RNA Qual (PCR) 09/19/20 09/19/20 09/19/20 15:43 15:51 18:38 WBC RBC Hgb Hct MCV MCH MCHC RDW Plt Count MPV Immature Gran % (Auto) Neut % (Auto) Lymph % (Auto) [place] % (Auto) Eos % (Auto) Baso % (Auto) Lymph # (Auto) [place] # (Auto) Eos # (Auto) Baso # (Auto) Abs Immat Gran (auto) Absolute Neuts (auto) Absolute Nucleated RBC Nucleated RBC % (auto) PT INR APTT D-Dimer Sodium 137 Potassium 4.3 Chloride 103 Carbon Dioxide 27 Anion Gap 11 L BUN 11 Creatinine 0.73 Estim Creat Clear Calc 63.2 Estimated GFR > 60 Random Glucose 120 H Lactic Acid Calcium 7.8 L Magnesium 1.8 Total Bilirubin 0.6 Direct Bilirubin 0.4 AST 18 ALT 7 Alkaline Phosphatase 44 Troponin I High Sens B-Natriuretic Peptide Total Protein 5.8 L Albumin 3.2 L Procalcitonin Urine Color YELLOW Urine Appearance CLEAR Urine pH 6.0 Ur Specific [place] 1.025 Urine Protein NEG Urine Glucose (UA) NEG Urine Ketones NEG Urine Blood TRACE Urine Nitrite NEG Ur Leukocyte Esterase NEG Urine RBC 0-2 Urine WBC 0 Ur Squamous Epith Cells 1+ Urine Bacteria TRACE Urine Yeast TRACE Vancomycin Trough Coronavirus (PCR) NEGATIVE Influenza Type A (PCR) NEGATIVE Influenza Type B (PCR) NEGATIVE RSV RNA Qual (PCR) NEGATIVE 09/19/20 09/19/20 09/19/20 18:38 20:04 22:15 WBC RBC Hgb Hct MCV MCH MCHC RDW Plt Count MPV Immature Gran % (Auto) Neut % (Auto) Lymph % (Auto) [place] % (Auto) Eos % (Auto) Baso % (Auto) Lymph # (Auto) [place] # (Auto) Eos # (Auto) Baso # (Auto) Abs Immat Gran (auto) Absolute Neuts (auto) Absolute Nucleated RBC Nucleated RBC % (auto) PT INR APTT D-Dimer Sodium Potassium Chloride Carbon Dioxide Anion Gap BUN Creatinine Estim Creat Clear Calc Estimated GFR Random Glucose Lactic Acid Calcium Magnesium Total Bilirubin Direct Bilirubin AST ALT Alkaline Phosphatase Troponin I High Sens 460.5 H D 344.3 H B-Natriuretic Peptide Total Protein Albumin Procalcitonin 0.94 Urine Color Urine Appearance Urine pH Ur Specific [place] Urine Protein Urine Glucose (UA) Urine Ketones Urine Blood Urine Nitrite Ur Leukocyte Esterase Urine RBC Urine WBC Ur Squamous Epith Cells Urine Bacteria Urine Yeast Vancomycin Trough Coronavirus (PCR) Influenza Type A (PCR) Influenza Type B (PCR) RSV RNA Qual (PCR) 09/21/20 09/21/20 09/22/20 15:24 15:24 01:56 WBC 14.8 H RBC 3.79 L Hgb 9.3 L Hct 30.8 L MCV 81.3 MCH 24.5 L MCHC 30.2 L RDW 15.6 Plt Count 388 MPV 10.1 Immature Gran % (Auto) 0.5 H Neut % (Auto) 75.0 H Lymph % (Auto) 13.8 L [place] % (Auto) 10.0 Eos % (Auto) 0.5 Baso % (Auto) 0.2 Lymph # (Auto) 2.0 [place] # (Auto) 1.5 H Eos # (Auto) 0.1 Baso # (Auto) 0.0 Abs Immat Gran (auto) 0.07 H Absolute Neuts (auto) 11.1 H Absolute Nucleated RBC 0.000 Nucleated RBC % (auto) 0.0 PT INR APTT D-Dimer Sodium 139 Potassium 4.4 Chloride 104 Carbon Dioxide 27 Anion Gap 12 BUN 18 H D Creatinine 0.74 Estim Creat Clear Calc 62.3 Estimated GFR > 60 Random Glucose 92 Lactic Acid Calcium 8.8 D Magnesium Total Bilirubin Direct Bilirubin AST ALT Alkaline Phosphatase Troponin I High Sens B-Natriuretic Peptide Total Protein Albumin Procalcitonin Urine Color Urine Appearance Urine pH Ur Specific [place] Urine Protein Urine Glucose (UA) Urine Ketones Urine Blood Urine Nitrite Ur Leukocyte Esterase Urine RBC Urine WBC Ur Squamous Epith Cells Urine Bacteria Urine Yeast Vancomycin Trough 8.7 L Coronavirus (PCR) Influenza Type A (PCR) Influenza Type B (PCR) RSV RNA Qual (PCR) 09/23/20 05:23 WBC 7.6 RBC 3.43 L Hgb 8.4 L Hct 27.7 L MCV 80.8 MCH 24.5 L MCHC 30.3 L RDW 15.5 Plt Count 306 MPV 10.6 Immature Gran % (Auto) 0.3 Neut % (Auto) 55.0 Lymph % (Auto) 27.4 [place] % (Auto) 13.9 H Eos % (Auto) 2.7 Baso % (Auto) 0.7 Lymph # (Auto) 2.1 [place] # (Auto) 1.1 Eos # (Auto) 0.2 Baso # (Auto) 0.1 Abs Immat Gran (auto) 0.02 Absolute Neuts (auto) 4.2 Absolute Nucleated RBC 0.000 Nucleated RBC % (auto) 0.0 PT INR APTT D-Dimer Sodium Potassium Chloride Carbon Dioxide Anion Gap BUN Creatinine Estim Creat Clear Calc Estimated GFR Random Glucose Lactic Acid Calcium Magnesium Total Bilirubin Direct Bilirubin AST ALT Alkaline Phosphatase Troponin I High Sens B-Natriuretic Peptide Total Protein Albumin Procalcitonin Urine Color Urine Appearance Urine pH Ur Specific [place] Urine Protein Urine Glucose (UA) Urine Ketones Urine Blood Urine Nitrite Ur Leukocyte Esterase Urine RBC Urine WBC Ur Squamous Epith Cells Urine Bacteria Urine Yeast Vancomycin Trough Coronavirus (PCR) Influenza Type A (PCR) Influenza Type B (PCR) RSV RNA Qual (PCR) Preliminary micro results at discharge 09/23/20 13:10 Routine Culture - Preliminary Brushing - Lt Lung (Pleural) No growth to date. 09/23/20 13:10 Routine Culture - Preliminary Washing - Wash, bilateral No growth to date. 09/19/20 15:08 Blood Culture - Preliminary Blood - Venous No growth after 48 hours. 09/19/20 15:43 Blood Culture - Preliminary Blood - Venous No growth after 48 hours. Discharge Plan Discharge Anticipated Discharge Date/Time: 09/24/20 11:33 Patient Disposition: Home, Self-Care Referrals: Quentin Freeman MD [Primary Care Provider] - Discharge Medications: New atenolol 50 mg Tablet 50 mg PO DAILY Qty: 30 RF: 0 amoxicillin-pot clavulanate [Augmentin] 500-125 mg tablet 1 tab PO BID Qty: 14 RF: 0 pantoprazole [Protonix] 20 mg tablet,delayed release (DR/EC) 20 mg PO BID Qty: 60 RF: 0 Continued Premarin 0.625 mg/gram cream 1.5 g vaginal BEDTIME RF: 0 fluticasone propionate 50 mcg/actuation spray,suspension 2 spray intranasal DAILY RF: 0 alprazolam 0.25 mg Tablet 0.25 mg PO BID PRN (Reason: Anxiety) RF: 0 albuterol sulfate [ProAir HFA] 90 mcg/actuation Hfa Aerosol Inhaler 2 puff INHALATION Q4H PRN (Reason: Respiratory Distress) RF: 0 Stiolto Respimat 2.5-2.5 mcg/actuation Mist 2 puff INHALATION DAILY RF: 0 pantoprazole 40 mg tablet,delayed release (DR/EC) 40 mg PO DAILY RF: 0 levothyroxine 88 mcg tablet 88 mcg PO DAILY RF: 0 lifitegrast 5 % dropperette 1 drp ophthalmic (eye) BID RF: 0 aspirin [Adult Low Dose Aspirin] 81 mg tablet,delayed release (DR/EC) 81 mg PO DAILY RF: 0 B12 Active 1,000 mcg tablet,chewable 1,000 mcg PO DAILY RF: 0 turmeric 400 mg capsule PO DAILY RF: 0 magnesium glycinate 100 mg tablet 100 mg PO DAILY RF: 0 pyridoxine (vitamin B6) 100 mg tablet 50 mg PO BID RF: 0 Zyrtec 10 mg capsule 10 mg PO DAILY RF: 0 Held rivaroxaban 20 mg tablet 20 mg PO DAILY@1700 RF: 0 Hold Instructions: Resume on 10/09/20. Discontinued carvedilol 6.25 mg Tablet 6.25 mg PO BID RF: 0 Discharge Orders: Discharge Order (Routine); Ordered 09/24/20 Ordered By: Fan Doan Diet: low fat, low cholesterol Activity on Discharge: As tolerated Stand Alone Forms: Patient Portal Discharge page Visit Report Forms: Patient Portal Discharge page Health Concerns: pneumonia Plan of Treatment: po antibiotics follow up with Gastroenterology as outpatient Discharge Date/Time: 09/24/20 13:43
--- NOTE | 2020-09-24 21:17 | PM.GICN ---
History of Present Illness Data of Consult Service Date: 09/24/20 Requesting physician: Fan Doan Primary Care Provider: Quentin Freeman MD [facility] Reason for consult: abn ba swallow 80-year-old female with a past medical history of hypertension, hyperlipidemia, COPD on 2 L of home oxygen, diastolic CHF, AAA s/p EVAR, history of right lung nodule resection-with aspergilloma; CAD, recent NSTEMI s/p cardiac catheterization on 09/06/2020 who I am asked to see for eval for abn ba swallow. She presented to the hospital w/ shortness of breath and generalized weakness, imaging revealed patchy infiltrates and she had bronchoscopy with Dr Arrington. As part of w/u she had ba swallow which had appearance consistent with achalasia with tapering of the distal esophagus. She does admit to intermittent dysphagia over the last 2 years usu to solids and getting worse over last few months, also noted worsening SOB same time with weight loss and poor appetite. She denies abdo pain, no constipation or diarrhea. [facility] Dr [facility], she is fed up and wants to go home but wants to discuss about options for possible achalasia management. She was not aware of achalasia prior to this admission. Review of Systems Review of Systems: Constitutional: + Fever, No Chills ENT/Mouth: No sore throat, No Rhinorrhea, No Swallowing Difficulty Cardiovascular: No Chest Pain, + SOB, No Orthopnea, No Edema Respiratory: + Cough, + Sputum, No Wheezing, + dyspnea, +hemoptysis Gastrointestinal: + Nausea, No Vomiting, No Diarrhea, No abdominal Pain Genitourinary: No Dysuria, No Urinary Frequency, No Hematuria Musculoskeletal: No joint pain, No Myalgias Skin: No Skin Lesions, No rash Neuro: No Weakness, No Numbness, No Dizziness, +Headache Psych: + Anxiety/Panic, + Depression Heme/Lymph: No Bruising, No Lymphadenopathy Endocrine: No Polyuria, No Polydipsia Yes all other systems are reviewed and are negative Constitutional: Constitutional: Reports fatigue, Reports lethargy, Denies night sweats and Reports weakness ENT: Denies change in voice, Reports dysphagia, Denies lip swelling, Denies mouth pain, Reports nasal congestion, Reports nasal discharge and Denies tongue swelling Cardiovascular: Cardiovascular: Reports as per HPI, Reports no additional cardiovascular complaints, Denies acrocyanosis, Denies cool extremities, Denies painful fingertips, Denies chest pain, Denies chest pain at rest, Denies diaphoresis, Denies syncope, Denies irregular heart rhythm, Denies claudication, Denies leg edema, Denies lightheadedness, Denies palpitations and Reports dyspnea Respiratory: Respiratory: Reports chest congestion, Reports cough, Reports hemoptysis and Reports dyspnea Gastrointestinal: Gastrointestinal: Denies abdominal pain, Reports dysphagia, Reports early satiety and Reports dyspepsia Musculoskeletal: Musculoskeletal: Denies no additional musculoskeletal complaints Neurologic: Denies Neuro-related abnormal movements, Denies syncope and Reports weakness Psychiatric: Psychiatric: Denies no additional psychiatric complaints, Reports anxiety and Reports depression Endocrine: Endocrine: Reports fatigue and Denies palpitations Hematologic/Lymphatic: Hematologic/Lymphatic: Denies easy bleeding and Denies lymphadenopathy Allergic/Immunologic: Allergic/Immunologic: Denies lip swelling and Denies tongue swelling PMFSH Past Medical History Medical History Atherosclerotic cardiovascular disease Bronchitis Chronic heart failure with preserved ejection fraction (HFpEF) Chronic respiratory failure COPD (chronic obstructive pulmonary disease) Descending thoracic aortic aneurysm Hemoptysis PAF (paroxysmal atrial fibrillation) Pneumonia Pulmonary nodule Family History Pertinent family history: No significant family history pertinent. Family history: reviewed and not pertinent Social History Social History Household Members: Spouse Housing: House Alcohol intake: never Smoking Status: Former smoker Tobacco Type: Cigarette Second Hand Smoke Exposure: No service: No Current occupational status: retired Meds Allergies Allergy/AdvReac Type Severity Reaction Status Date / Time Morphine Allergy Severe Vomiting Uncoded 09/19/20 14:16 Opiods Allergy Severe Vomiting Uncoded 09/19/20 14:16 percocet Allergy Severe Vomiting Uncoded 09/19/20 14:16 Percodan Allergy Severe Vomiting Uncoded 09/19/20 14:16 Tylenol #3 Allergy Severe Vomiting Uncoded 09/19/20 14:16 Home Medications Medication Instructions Recorded Confirmed Last Taken Type aspirin 81 mg tablet,delayed 81 mg PO DAILY 06/07/20 09/19/20 Unknown History release cetirizine 10 mg capsule 10 mg PO DAILY cap 06/07/20 09/19/20 Unknown History levothyroxine 88 mcg tablet 88 mcg PO DAILY 10/23/20 02/04/21 Unknown History lifitegrast 5 % eye drops in a 1 drp OPHTHALMIC (EYE) BID 06/07/20 09/19/20 Unknown History dropperette magnesium glycinate 100 mg tablet 100 mg PO DAILY 06/07/20 09/19/20 Unknown History mecobalamin (vitamin B12) 1,000 1,000 mcg PO DAILY 06/07/20 09/19/20 Unknown History mcg chewable tablet pantoprazole 40 mg tablet,delayed 40 mg PO DAILY 06/07/20 09/19/20 Unknown History release pyridoxine (vitamin B6) 100 mg 50 mg PO BID 06/07/20 09/19/20 Unknown History tablet turmeric 400 mg capsule mg PO DAILY 06/07/20 09/18/20 Unknown History rivaroxaban 20 mg tablet 20 mg PO DAILY@1700 07/25/20 09/19/20 Unknown History Premarin 1.5 g VAGINAL BEDTIME 09/19/20 09/19/20 Unknown History Stiolto Respimat 2 puff INHALATION DAILY 09/19/20 09/19/20 Unknown History albuterol sulfate [ProAir HFA] 2 puff INHALATION Q4H PRN 09/19/20 09/19/20 Unknown History alprazolam 0.25 mg PO BID PRN 09/19/20 09/19/20 09/19/20 10:00 History fluticasone propionate 2 spray INTRANASAL DAILY 09/19/20 09/19/20 Unknown History Physical Exam Vital Signs: Vital Signs: Last Vital Signs Temp 98.0 F 09/24/20 11:23 Pulse 66 09/24/20 11:23 Resp 18 09/24/20 11:23 BP 149/68 H 09/24/20 11:23 Pulse Ox 92 09/24/20 11:23 Body Mass Index 29.5 Const: General: cooperative, comfortable, no acute distress and alert Orientation/consciousness: patient oriented x3 Limitations: No language barrier HENMT: Other: Unremarkable Head: Yes normal to inspection General nose exam: Abnormal external nose present and Nasal discharge present Mouth: oropharynx normal Eyes: General: appearance normal, both eyes and all related structures Pupils: Equal, round and reactive pupils present Neck: Neck: Yes normal visual inspection, Yes full ROM and Yes no lymphadenopathy Chest: Chest palpation & inspection: normal inspection of the chest Resp: Effort & Inspection: normal respiratory effort Auscultation: clear to auscultation bilaterally, crackles, no wheezes and diminished lung sounds Cardio: Jugular venous distension: no JVD Palpation: normal PMI Rate: regular rate Rhythm: regular rhythm Heart sounds: S1 normal heart sound present, S2 normal heart sound present, no gallops, Murmur heart sound present systolic at the apex, at the left sternal border and at the right sternal border and no rubs GI: Palpation (GI): Soft to palpation and nontender Auscultation: normal bowel sounds : General: Yes no CVA tenderness Back/Spine/Pelvis: Other: unremarkable Back: no CVA tenderness Skin: General skin exam: no rashes or lesions noted Neuro: General: patient oriented x3 Cranial nerves: Yes Equal, round and reactive pupils present Extrem: General: Yes normal to inspection and Yes no clubbing, cyanosis or edema Psych: Mental Status: mental status grossly normal Results Labs CBC & Chem 7: 09/23/20 05:23 09/21/20 15:24 Microbiology Microbiology Results: Microbiology 09/19/20 15:43 Blood - Venous Blood Culture - Final No growth after 5 days. 09/19/20 15:08 Blood - Venous Blood Culture - Final No growth after 5 days. 09/23/20 21:49 Stool Stool Culture - Final 09/23/20 13:10 Brushing - Lt Lung (Pleural) Gram Stain - Final 09/23/20 13:10 Brushing - Lt Lung (Pleural) Routine Culture - Preliminary No growth to date. 09/23/20 13:10 Washing - Wash, bilateral Gram Stain - Final 09/23/20 13:10 Washing - Wash, bilateral Routine Culture - Preliminary No growth to date. 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 Discussed need for EGD to r/o GEJ tumour and mass, if neg then further options might include POEM, myotomy, pneumatic dilation and botox to LES. I reviewed the findings and history, natural progression of achalsia with her. Given her age and morbidities she is not at all keen to proceed with anything aggressive, and prefers botox. Also discussed limited role of medication like nitrates and CCB but again she is not keen due to SE risk. She wants to go home and f/u with her GI at [facility], recommended she do this KATHERINE as she may be back with a further pneumonia due to aspiration if a more definitive intervention is not planned. I offered to do this while she is here but she is fed up and really wants to go. I gave her my card and contact info should she have further questions.
== END 2020-09-24 13:43 | disposition home or self-care (01) | DRG 190 ==
LOC: HO.ED 14:30 → HO.EDOVER 23:32 → HO.IMC 09-20 21:31
PROVIDERS: Hospitalist; Nurse Practitioner Family; Physician Assistant; Admitting Provider Hospitalist; Emergency Provider Emergency Medicine; PCP Internal Medicine; Visit Provider Internal Medicine
PROC: 0BJ08ZZ Inspection of Tracheobronchial Tree, Via Natural or Artificial Opening Endoscopic (ICD-10-PCS; CPT 31622; principal; 2020-09-23 13:00)
DX: J43.2 Centrilobular emphysema (principal); J18.9 Pneumonia, unspecified organism; I22.2 Subsequent non-ST elevation (NSTEMI) myocardial infarction; I21.9 Acute myocardial infarction, unspecified; R04.2 Hemoptysis; I50.32 Chronic diastolic (congestive) heart failure; E03.9 Hypothyroidism, unspecified; I25.10 Atherosclerotic heart disease of native coronary artery without angina pectoris; K22.0 Achalasia of cardia; E78.5 Hyperlipidemia, unspecified; I48.0 Paroxysmal atrial fibrillation; Z20.822 Contact with and (suspected) exposure to COVID-19; Z87.891 Personal history of nicotine dependence; Z99.81 Dependence on supplemental oxygen; Z88.5 Allergy status to narcotic agent; Z79.82 Long term (current) use of aspirin; Z79.890 Hormone replacement therapy; Z79.899 Other long term (current) drug therapy
CPT/HCPCS: 0241U; 36415; 71045; 71275; 74220; 80048; 80076; 80202; 81001; 83605; 83735; 83880; 84145; 84484; 85025; 85379; 85610; 85730; 87040; 87046; 87070; 87071; 87102; 87116; 87205; 88112; 88305; 93005; 93306; 94640; 96361; 96365; 96367; 96375; 99212; 99285; J0171; J0330; J2250; J2370; J2405; J2543; J2930; J3010; J3370; Q9967

== ENCOUNTER → 2020-10-11 10:18 | Outpatient (BNVA) | payer MEDICARE, SELFPAY | PROVIDERS: PCP Internal Medicine; Visit Provider Hospitalist | DX: R91.1 Solitary pulmonary nodule (principal); K22.0 Achalasia of cardia; J43.2 Centrilobular emphysema; J40 Bronchitis, not specified as acute or chronic; J96.11 Chronic respiratory failure with hypoxia; Z87.891 Personal history of nicotine dependence | CPT/HCPCS: 99212 ==

== ENCOUNTER 2020-12-13 13:35 | Outpatient (REF) | payer MEDICARE, SELFPAY | END 2020-12-13 13:36 | disposition home or self-care (01) | LOC: CF 13:35 | PROVIDERS: PCP Internal Medicine; Visit Provider Hospitalist | DX: J43.2 Centrilobular emphysema (principal); J96.10 Chronic respiratory failure, unspecified whether with hypoxia or hypercapnia; R91.1 Solitary pulmonary nodule; I50.32 Chronic diastolic (congestive) heart failure; K21.9 Gastro-esophageal reflux disease without esophagitis; R01.1 Cardiac murmur, unspecified; J18.9 Pneumonia, unspecified organism; Z79.899 Other long term (current) drug therapy; Z87.891 Personal history of nicotine dependence | CPT/HCPCS: 87205; 99212 ==

== ENCOUNTER → 2021-02-07 13:06 | Outpatient (BNVA) | payer MEDICARE, SELFPAY | PROVIDERS: PCP Physician Assistant Medical; Visit Provider Hospitalist | DX: R13.10 Dysphagia, unspecified (principal); J96.11 Chronic respiratory failure with hypoxia; J43.2 Centrilobular emphysema; R91.1 Solitary pulmonary nodule; D64.9 Anemia, unspecified | CPT/HCPCS: 99212 ==

== ENCOUNTER → 2021-05-09 13:35 | Outpatient (BNVA) | payer MEDICARE, SELFPAY | PROVIDERS: PCP Internal Medicine; Visit Provider Hospitalist | DX: J96.11 Chronic respiratory failure with hypoxia (principal); J43.2 Centrilobular emphysema; R91.1 Solitary pulmonary nodule; D64.9 Anemia, unspecified; R13.10 Dysphagia, unspecified | CPT/HCPCS: 99212 ==

== ENCOUNTER → 2021-10-31 13:19 | Outpatient (BNVA) | payer MEDICARE, SELFPAY | PROVIDERS: PCP Physician Assistant Medical; Visit Provider Hospitalist | DX: J96.11 Chronic respiratory failure with hypoxia (principal); J43.2 Centrilobular emphysema; R91.1 Solitary pulmonary nodule; D64.9 Anemia, unspecified | CPT/HCPCS: 99212 ==

== ENCOUNTER → 2022-02-10 14:32 | Outpatient (BNVA) | payer MEDICARE, SELFPAY | PROVIDERS: PCP Physician Assistant Medical; Visit Provider Hospitalist | DX: Z01.811 Encounter for preprocedural respiratory examination (principal); J96.11 Chronic respiratory failure with hypoxia; J43.2 Centrilobular emphysema; R91.1 Solitary pulmonary nodule; Z99.81 Dependence on supplemental oxygen | CPT/HCPCS: 99212 ==

== ENCOUNTER 2022-04-07 12:56 | Outpatient (REF) | payer MEDICARE, SELFPAY ==
--- NOTE | 2022-04-07 15:11 | PFT_ITS ---
Forced vital capacity 79%, FEV1 77%. FEV1/FVC ratio 73. [id number] 71% and MVV is 72%. Post bronchodilator therapy, there is a slight improvement in [id number]. Total lung capacity 79%. Residual volume 69%. Diffusion capacity 36%. CONCLUSION: 1. Restrictive pulmonary disorder, mild. 2. Obstructive airway disorder, mild. Minimal improvement after bronchodilator therapy is noted. Diffusion capacity is markedly decreased, which may be secondary to pulmonary emphysema, interstitial lung disease, or pulmonary vascular disease due to non-pulmonary factors. For this, clinical correlation is recommended. Compared to these PFT results of 06/13/2020, the lung volumes as well as diffusion capacity are slightly further decreased. MD HILDA La/MODL / [id number]
== END 2022-04-07 12:57 | disposition home or self-care (01) ==
LOC: HO.RESP 12:56
PROVIDERS: PCP Physician Assistant Medical; Visit Provider Hospitalist
DX: J43.2 Centrilobular emphysema (principal)
CPT/HCPCS: 94060; 94727; 94729

== ENCOUNTER → 2022-05-01 13:03 | Outpatient (BNVA) | payer MEDICARE, SELFPAY | PROVIDERS: PCP Physician Assistant Medical; Visit Provider Hospitalist | DX: J96.11 Chronic respiratory failure with hypoxia (principal); J43.2 Centrilobular emphysema; R91.1 Solitary pulmonary nodule | CPT/HCPCS: 94618; 99212 ==

== ENCOUNTER 2022-06-22 08:31 | Outpatient (RCR) | payer MEDICARE, SELFPAY | END 2022-08-04 11:49 | disposition home or self-care (01) | LOC: HO.WCC 08:31 | PROVIDERS: PCP Physician Assistant Medical; Visit Provider Physician Assistant | DX: L97.812 Non-pressure chronic ulcer of other part of right lower leg with fat layer exposed (principal); I87.2 Venous insufficiency (chronic) (peripheral); I73.9 Peripheral vascular disease, unspecified; Z87.891 Personal history of nicotine dependence; Z99.81 Dependence on supplemental oxygen | CPT/HCPCS: 11042; 99212 ==

== ENCOUNTER → 2022-11-04 11:04 | Outpatient (BNVA) | payer MEDICARE, SELFPAY | PROVIDERS: PCP Physician Assistant Medical; Visit Provider Hospitalist | DX: J96.11 Chronic respiratory failure with hypoxia (principal); J43.2 Centrilobular emphysema; R91.1 Solitary pulmonary nodule | CPT/HCPCS: 99212 ==

== ENCOUNTER 2023-03-22 13:59 | Outpatient (AMB) | payer MEDICARE, SELFPAY ==
[2023-03-22 14:03] VITALS: BP 142/70; PULSE 70; O2SAT 92; BMI 29.3
--- NOTE | 2023-03-22 14:03 | A.OFFVIS_ITS ---
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 The last few weeks she underwent a colonoscopy after a positive colo-guard study. She did receive deep sedation. After she had a worsening cough and shortness of breath. She started Augmentin for 5 days and did feel better but then she stopped because that she had another procedure to have. She underwent lithotripsy of her kidney. In continued having worsening respiratory symptoms. She does have a Bentyl inhaler that was prescribed to her and she did use it seldomly. But now after the procedures she is having to use it more often. This morning she had to give herself 4 puffs. In the office today she was found to be significantly wheezy and she did receive a DuoNeb treatment improving her symptoms dramatically. She is concerned that she could have COPD. She is status post total knee replacement. Postoperatively she was admitted with heart failure to the hospital. She was placed on diuretics. She does have a murmur. She has not had an echo in some time. 02/10/2022 the patient is here for a pulmonary follow-up visit for pulmonary clearance. The patient has been doing well from a respiratory status. She continues use her oxygen with activity and also with sleep. She does mine using the oxygen but she would like to see if she can come off it. She does have a portable oxygen concentrator. She continues on the azithromycin. Appears to be very effective for her. Will continue the therapy for now to maintain her mucus burden down and treated for chronic bronchitis. The patient now has to be evaluated for kidney stones. She has a procedure set up with Urology. She likely will need general anesthesia. In the office we did perform a bedside spirometry. It appears that she has no obstructive ventilatory defects. 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 She has been on respiratory inhalers with good response. At this point the patient is doing well from a respiratory status and is [facility] and her urological procedure for the kidney stones. The patient has mild risk for perioperative pulmonary complications which include atelectasis, worsening hypoxia, pneumonia and prolonged mechanical ventilation. She is chronically optimized from a medical standpoint and should continue with current respiratory therapy. When she returns in the fall will go ahead and reassess her to see if we can wean her off the oxygen. 05/01/2022 the patient is here for a pulmonary follow-up visit. Overall she is doing well. she did tolerate her the drips the procedure. After she has difficulty voiding. Respiratory status was stable throughout the procedure. Overall she is doing well. She continues to use her oxygen with activity. She does have a small portable oxygen concentrator at 2 L pulse. The patient also uses oxygen continues the nighttime while sleeping. We did undergo a 6 minutes walk test. the patient still requires oxygen supplementation with activity specially outside of the home. I did recommend to continue using portable oxygen concentrator 2 L pulse when she is walking outside her home. While she is at home she could be without it. Except for sleep. She continues her respiratory therapy with good effect. She is planned to have a repeat CT scan of her chest to follow-up with her graft the coming weeks. I did provide her with some aeration in order for her to get is a copy of the report in order to follow-up with her postsurgical changes in her previous pulmonary nodules. 11/04/2022 the patient is here for a pulmonary follow-up visit. The patient had COVID back in July. Afterwards she started developing worsening cough. She also noticed that she is using her oxygen more often. She has been having productive phlegm usually yellowish in color. Denies any hemoptysis. Moderate severity. She did have a CT scan of the chest back in May 2022 at [facility]. I did review it in there was no significant findings there. She does have postoperative changes and she is being followed closely for her aortic stent and also for aneurysm. Therefore, will go ahead and try to treat this appt bronchitis with some antibiotics and also low-dose prednisone. Hopefully she started feeling better. If she does not feel better and is sputum does not improve she can always provide us with sputum culture to see if we can find if she has any resistant organisms. If she continues to be symptomatic additional imaging studies will be warranted. 03/22/2023 the patient is here for sick visit. She has been having worsening cough for the last week or 2. The patient has had chest congestion and also significant sinus pressure buildup. She was evaluated in urgent care. She was placed on amoxicillin 3 times a day. Although she was not seen any significant improvement. She did call the office. We switched over to doxycycline. Seems to be doing a little better. Still having significant cough with mucus production. Also having significant runny nose. She was able to expectorate some in the office. Does have some slight wheezing on examination. The patient will continue the doxycycline she has another 7 days. In addition to that will start her on a Medrol pack. Also she will start nasal therapy. Patient likely has a component of sinusitis and also bronchitis. If the patient is no better she will call the office again for further evaluation she is scheduled to undergo a CT scan of the chest soon for her history of aortic endovascular stent. 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) Alcohol intake: never Patient Tobacco Use Status: Never used Tobacco Second Hand Smoke Exposure: No service: No Current occupational status: retired Review of Systems Const Denies fatigue, Denies malaise, Denies night sweats and Reports weight loss ENT Denies change in voice, Denies lip swelling, Reports epistaxis, Denies mouth pain, Reports nasal congestion, Reports nasal discharge, Reports sinus pain, Reports sinus pressure and Denies tongue swelling Card Denies chest pain, Reports dyspnea and Reports dyspnea on exertion Resp Reports change in phlegm color, Reports chest congestion, Reports cough, Denies hemoptysis, Reports excessive phlegm production, Reports dyspnea, Reports dyspnea on exertion and Reports wheezing GI Denies abdominal pain Musc Denies no additional complaints Neuro Denies Neuro-related abnormal movements Psych Denies no additional complaints Endo Denies fatigue Feliciano/Lymph Denies easy bleeding and Denies lymphadenopathy Aller/Immun Denies lip swelling, Denies tongue swelling and Reports wheezing Physical Exam Vital Signs: Last Vital Signs Pulse 70 03/22/23 14:03 BP 142/70 H 03/22/23 14:03 Pulse Ox 92 03/22/23 14:03 Oxygen Delivery Method Room Air 03/22/23 14:03 BMI result Body Mass Index 29.3 Last Vital Signs Temp 97.2 F 09/24/20 07:29 Pulse 88 09/24/20 07:29 Resp 18 09/24/20 07:29 BP 153/74 H 09/24/20 07:29 Pulse Ox 95 09/24/20 07:29 Body Mass Index 29.5 Const General: comfortable and alert HEENT General nose exam: Abnormal mucous membranes and turbinates present erythematous Neck Neck: Yes normal visual inspection, Yes full ROM and Yes no lymphadenopathy Chest Chest palpation & inspection: normal inspection of the chest Resp Effort & Inspection: Actively coughing Quality: productive and prolonged expiratory phase Auscultation: wheezes and diminished lung sounds Cardio Rate: regular rate Rhythm: regular rhythm Heart sounds: S1 normal heart sound present and S2 normal heart sound present GI Palpation (GI): Soft to palpation and nontender Auscultation: normal bowel sounds Skin General skin exam: rashes and/or lesions noted Assessment & Plan Assessment & Plan (1) Sinusitis: Code(s): J32.9 - Chronic sinusitis, unspecified Qualifiers: Sinusitis location: pansinusitis Chronicity: subacute Qualified Code(s): J01.40 - Acute pansinusitis, unspecified (2) Bronchitis: Code(s): J40 - Bronchitis, not specified as acute or chronic (3) Chronic respiratory failure: Code(s): J96.10 - Chronic respiratory failure, unspecified whether with hypoxia or hypercapnia Qualifiers: Respiratory failure complication: hypoxia Qualified Code(s): J96.11 - Chronic respiratory failure with hypoxia (4) COPD (chronic obstructive pulmonary disease): Code(s): J44.9 - Chronic obstructive pulmonary disease, unspecified Qualifiers: COPD type: emphysema Emphysema type: centrilobular Qualified Code(s): J43.2 - Centrilobular emphysema (5) Pulmonary nodule: Comment: Positive aspergilloma pathology Code(s): R91.1 - Solitary pulmonary nodule Plan: Status post resection consistent with aspergilloma. No evidence of any additional nodules on her last CT scan. Plan continue Doxycycline start medrol fluticasone nasal spray ipratropium nasal spray as needed if no better should provide an expectorated sputum Continue Stiolto Short-acting beta agonist as needed Continue oxygen supplementation with activity and during sleep follow-up in 3-4 months or sooner if no better Medications: New ipratropium bromide administer into each nostril 2 sprays intranasal TID PRN 15 mL 6RF allergy s ymptoms methylprednisolone (Medrol (Sadiq)) PO PER PKG DIR 6 days 21 ea 0RF Coding Level of Care Code Est Pt Level 4 (30292) Diagnoses Sinusitis J01.40 Sinusitis location: pansinusitis Chronicity: subacute Bronchitis J40 Chronic respiratory failure J96.11 Respiratory failure complication: hypoxia COPD (chronic obstructive pulmonary disease) J43.2 COPD type: emphysema Emphysema type: centrilobular Pulmonary nodule R91.1 Time Spent (min) 18
== END 2023-03-22 14:27 | disposition home or self-care (01) ==
PROVIDERS: PCP Physician Assistant Medical; Visit Provider Hospitalist
DX: J01.40 Acute pansinusitis, unspecified (principal); J40 Bronchitis, not specified as acute or chronic; J96.11 Chronic respiratory failure with hypoxia; J43.2 Centrilobular emphysema; R91.1 Solitary pulmonary nodule
CPT/HCPCS: 99214

== ENCOUNTER → 2023-03-22 13:59 | Outpatient (BNVA) | payer MEDICARE, SELFPAY | PROVIDERS: PCP Physician Assistant Medical; Visit Provider Hospitalist | DX: J96.11 Chronic respiratory failure with hypoxia (principal); J43.2 Centrilobular emphysema; J01.40 Acute pansinusitis, unspecified; J40 Bronchitis, not specified as acute or chronic; R91.1 Solitary pulmonary nodule; I71.23 Aneurysm of the descending thoracic aorta, without rupture | CPT/HCPCS: 99212 ==

== ENCOUNTER 2023-05-04 13:55 | Outpatient (AMB) | payer MEDICARE, SELFPAY ==
--- NOTE | 2023-05-04 14:23 | A.OFFVIS_ITS ---
Intake Vital Signs 05/04/23 14:24 Height 5 ft 4 in Weight 173 lb BMI 29.7 BP 142/60 H Blood Pressure Location Lt brachial Position Sitting Pulse 71 Pulse Source Pulse Oximeter Pulse Oximetry (%) 95 Oxygen Delivery Method Room Air Comment 2 Liters Oxygen(Inogen One) Intake Visit Reasons: COPD Allergies Morphine Allergy (Severe, Uncoded 05/04/23 14:27) Vomiting Opiods Allergy (Severe, Uncoded 05/04/23 14:27) Vomiting percocet Allergy (Severe, Uncoded 05/04/23 14:27) Vomiting Percodan Allergy (Severe, Uncoded 05/04/23 14:27) Vomiting Tylenol #3 Allergy (Severe, Uncoded 05/04/23 14:27) Vomiting HPI HPI Comments History of Present Illness Details The patient is a 82 y/o woman with a history of recurring pneumonia and now worsening respiratory symptoms. The last few weeks she underwent a colonoscopy after a positive colo-guard study. She did receive deep sedation. After she had a worsening cough and shortness of breath. She started Augmentin for 5 days and did feel better but then she stopped because that she had another procedure to have. She underwent lithotripsy of her kidney. In continued having worsening respiratory symptoms. She does have a Bentyl inhaler that was prescribed to her and she did use it seldomly. But now after the procedures she is having to use it more often. This morning she had to give herself 4 puffs. In the office today she was found to be significantly wheezy and she did receive a DuoNeb treatment improving her symptoms dramatically. She is concerned that she could have COPD. She is status post total knee replacement. Postoperatively she was admitted with heart failure to the hospital. She was placed on diuretics. She does have a murmur. She has not had an echo in some time. 02/10/2022 the patient is here for a pulmonary follow-up visit for pulmonary clearance. The patient has been doing well from a respiratory status. She continues use her oxygen with activity and also with sleep. She does mine using the oxygen but she would like to see if she can come off it. She does have a portable oxygen concentrator. She continues on the azithromycin. Appears to be very effective for her. Will continue the therapy for now to main tain her mucus burden down and treated for chronic bronchitis. The patient now has to be evaluated for kidney stones. She has a procedure set up with Urology. She likely will need general anesthesia. In the office we did perform a bedside spirometry. It appears that she has no obstructive ventilatory defects. 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 She has been on respiratory inhalers with good response. At this point the patient is doing well from a respiratory status and is able to proceed with general anesthesia and her urological procedure for the kidney stones. The patient has mild risk for perioperative pulmonary complications which include atelectasis, worsening hypoxia, pneumonia and prolonged mechanical ventilation. She is chronically optimized from a medical standpoint and should continue with current respiratory therapy. When she returns in the fall will go ahead and reassess her to see if we can wean her off the oxygen. 05/01/2022 the patient is here for a pulmonary follow-up visit. Overall she is doing well. she did tolerate her the drips the procedure. After she has difficulty voiding. Respiratory status was stable throughout the procedure. Overall she is doing well. She continues to use her oxygen with activity. She does have a small portable oxygen concentrator at 2 L pulse. The patient also uses oxygen continues the nighttime while sleeping. We did undergo a 6 minutes walk test. the patient still requires oxygen supplementation with activity specially outside of the home. I did recommend to continue using portable oxygen concentrator 2 L pulse when she is walking outside her home. While she is at home she could be without it. Except for sleep. She continues her respiratory therapy with good effect. She is planned to have a repeat CT scan of her chest to follow-up with her graft the coming weeks. I did provide her with some aeration in order for her to get is a copy of the report in order to follow-up with her postsurgical changes in her previous pulmonary nodules. 11/04/2022 the patient is here for a pulmonary follow-up visit. The patient had COVID back in July. Afterwards she started developing worsening cough. She also noticed that she is using her oxygen more often. She has been having productive phlegm usually yellowish in color. Denies any hemoptysis. Moderate severity. She did have a CT scan of the chest back in May 20[facility] at [facility]. I did review it in there was no significant findings there. She does have postoperative changes and she is being followed closely for her aortic stent and also for aneurysm. Therefore, will go ahead and try to treat this appt bronchitis with some antibiotics and also low-dose prednisone. Hopefully she started feeling better. If she does not feel better and is sputum does not improve she can always provide us with sputum culture to see if we can find if she has any resistant organisms. If she continues to be symptomatic additional imaging studies will be warranted. 03/22/2023 the patient is here for sick visit. She has been having worsening cough for the last week or 2. The patient has had chest congestion and also significant sinus pressure buildup. She was evaluated in urgent care. She was placed on amoxicillin 3 times a day. Although she was not seen any significant improvement. She did call the office. We switched over to doxycycline. Seems to be doing a little better. Still having significant cough with mucus production. Also having significant runny nose. She was able to expectorate some in the office. Does have some slight wheezing on examination. The patient will continue the doxycycline she has another 7 days. In addition to that will start her on a Medrol pack. Also she will start nasal therapy. Patient likely has a component of sinusitis and also bronchitis. If the patient is no better she will call the office again for further evaluation she is scheduled to undergo a CT scan of the chest soon for her history of aortic endovascular stent. 05/04/2023 the patient is here for a pulmonary follow-up visit. The patient is complaining of worsening chest congestion. She is bringing up greenish phlegm. Moderate severity. It is affecting her breathing. She did finish a course of antibiotics recently. She does have adverse effects multiple antibiotics. We did provide her with a nebulized treatment with hypertonic saline but the patient was not able to produce a sputum specimen. Therefore she will take a cup with her and will submit whenever able. The meantime will start her on Augmentin which she seems to tolerate. She can also use probiotics to minimize symptoms. The patient is scheduled to undergo a repeat CT scan of the chest sometime in May to address her endovascular stent but if the patient has any worsening symptoms she can always call for an earlier evaluation. Otherwise patient continues use her respiratory therapy. Her biggest issue is her proprioception and risk for falls. The patient has been working closely with physical therapy. I did recommend she consider occupational therapy as well. [facility] Medical History (Updated 03/22/23 @ 22:16 by Maulik Arrington MD) Anemia Anemia Descending thoracic aortic aneurysm Chronic heart failure with preserved ejection fraction (HFpEF) PAF (paroxysmal atrial fibrillation) Atherosclerotic cardiovascular disease Chronic respiratory failure Pneumonia Hemoptysis Bronchitis COPD (chronic obstructive pulmonary disease) Pulmonary nodule Social History (Updated 05/09/21 @ 13:56 by PITO Ovalles) Household Members: Spouse Housing: House Do you presently have visiting nurse or other home services: Yes (cleaning lady) Alcohol intake: never Patient Tobacco Use Status: Never used Tobacco Second Hand Smoke Exposure: No service: No Current occupational status: retired Review of Systems Const Denies fatigue, Denies fever(s), Denies malaise and Denies night sweats ENT Denies change in voice, Denies lip swelling, Denies epistaxis, Denies mouth p ain, Reports nasal congestion, Reports nasal discharge, Denies sinus pain, Denies sinus pressure and Denies tongue swelling Card Denies chest pain, Reports dyspnea and Reports dyspnea on exertion Resp Reports chest congestion, Reports cough, Denies hemoptysis, Reports excessive phlegm production, Reports dyspnea, Reports dyspnea on exertion and Reports wheezing GI Denies abdominal pain Musc Denies no additional complaints Skin/Breast Denies rash Neuro Denies Neuro-related abnormal movements Psych Denies no additional complaints Endo Denies fatigue Feliciano/Lymph Denies easy bleeding and Denies lymphadenopathy Aller/Immun Denies lip swelling, Denies tongue swelling and Reports wheezing Physical Exam Vital Signs: Last Vital Signs Pulse 71 05/04/23 14:24 BP 142/60 H 05/04/23 14:24 Pulse Ox 95 05/04/23 14:24 Oxygen Delivery Method Room Air 05/04/23 14:24 BMI result Body Mass Index 29.7 Last Vital Signs Temp 97.2 F 09/24/20 07:29 Pulse 88 09/24/20 07:29 Resp 18 09/24/20 07:29 BP 153/74 H 09/24/20 07:29 Pulse Ox 95 09/24/20 07:29 Body Mass Index 29.5 Const General: comfortable and alert HEENT General nose exam: Abnormal mucous membranes and turbinates present erythematous Neck Neck: Yes normal visual inspection, Yes full ROM and Yes no lymphadenopathy Chest Chest palpation & inspection: normal inspection of the chest Resp Effort & Inspection: Actively coughing Quality: productive and No prolonged expiratory phase Auscultation: no wheezes and diminished lung sounds Cardio Rate: regular rate Rhythm: regular rhythm Heart sounds: S1 normal heart sound present and S2 normal heart sound present GI Palpation (GI): Soft to palpation and nontender Auscultation: normal bowel sounds Skin General skin exam: rashes and/or lesions noted Extrem General: Yes no clubbing, cyanosis or edema Office Procedures Nebulizer Treatment Nebulizer Treatment [id number]/MDI RX initial, or Nebulizer Subsequent Treatment Office Meds levalbuterol HCl 1.25 mg/3 mL solution for nebulization Performing Provider: Maulik Arrington MD Performing Location: [facility] Administered by: Lesli Lin LPN on 05/04/23 14:56 Dose Route Admin Location Dispensed Lot Number Expiration Date [employer] 1.25 mg inhalation 3 mL [id number] 03/15/24 sodium chloride 3 % for nebulization Performing Provider: Maulik Arrington MD Performing Location: [facility] Administered by: Lesli Lin LPN on 05/04/23 14:56 Dose Route Admin Location Dispensed Lot Number Expiration Date [employer]or 3 mL inhalation 3 mL [id number] 09/15/23 Assessment & Plan Assessment & Plan (1) Bronchitis: Code(s): J40 - Bronchitis, not specified as acute or chronic (2) Chronic respiratory failure: Code(s): J96.10 - Chronic respiratory failure, unspecified whether with hypoxia or hypercapnia Qualifiers: Respiratory failure complication: hypoxia Qualified Code(s): J96.11 - Chronic respiratory failure with hypoxia (3) COPD (chronic obstructive pulmonary disease): Code(s): J44.9 - Chronic obstructive pulmonary disease, unspecified Qualifiers: COPD type: emphysema Emphysema type: centrilobular Qualified Code(s): J43.2 - Centrilobular emphysema (4) Pulmonary nodule: Comment: Positive aspergilloma pathology Code(s): R91.1 - Solitary pulmonary nodule Plan: Status post resection consistent with aspergilloma. No evidence of any additional nodules on her last CT scan. Plan start Augmentin BID fluticasone nasal spray ipratropium nasal spray as needed expectorated sputum for culture Continue Stiolto daily Short-acting beta agonist as needed Continue oxygen supplementation with activity and during sleep follow-up in 4-6 months or sooner if no better Orders: Orders AMB Nebulizer Treatment Today J44.9 - Chronic obstructive pulmonary disease, unspecified Medications: New amoxicillin-pot clavulanate 875-125 mg 1 tab PO BID 10 days 20 tabs 0RF albuterol sulfate 90 mcg/actuation (Ventolin HFA) 2 puffs inhalation QID 90 days PRN 3 ea 3RF shortness of breath or wheezing Coding Level of Care Code Tele Est Pt Level 4 (98531) Diagnoses Bronchitis J40 Chronic respiratory failure with hypoxia J96.11 Respiratory failure complication: hypoxia Centrilobular emphysema J43.2 COPD type: emphysema Emphysema type: centrilobular Pulmonary nodule R91.1 CPT Codes Nebulizer Treatment - Nebulizer Treatment, initial or subsequent: [id number] Nebulizer/MDI RX initial, or Nebulizer Subsequent Treatment ([id number]) Time Spent (min) 30
[2023-05-04 14:24] VITALS: BP 142/60; PULSE 71; O2SAT 95; BMI 29.7
== END 2023-05-04 15:29 | disposition home or self-care (01) ==
PROVIDERS: PCP Physician Assistant Medical; Visit Provider Hospitalist
DX: J40 Bronchitis, not specified as acute or chronic (principal); J96.11 Chronic respiratory failure with hypoxia; J43.2 Centrilobular emphysema; R91.1 Solitary pulmonary nodule
CPT/HCPCS: 99214

== ENCOUNTER → 2023-05-04 13:55 | Outpatient (BNVA) | payer MEDICARE, SELFPAY | PROVIDERS: PCP Physician Assistant Medical; Visit Provider Hospitalist | DX: J40 Bronchitis, not specified as acute or chronic (principal); J96.11 Chronic respiratory failure with hypoxia; J43.2 Centrilobular emphysema; R91.1 Solitary pulmonary nodule | CPT/HCPCS: 94640; 99212 ==

== ENCOUNTER 2023-07-27 13:46 | Outpatient (AMB) | payer MEDICARE, SELFPAY ==
--- NOTE | 2023-07-27 13:59 | A.OFFVIS_ITS ---
Intake Vital Signs 07/27/23 14:01 Height 5 ft 4 in Weight 172 lb 2.896 oz BMI 29.6 Pulse 72 Pulse Source Pulse Oximeter Pulse Oximetry (%) 94 Oxygen Delivery Method Room Air Comment 2 Liters Oxygen(Inogen One) Intake Visit Reasons: COPD Documentation Billing Clerk Required: No Allergies Morphine Allergy (Severe, Uncoded 07/27/23 14:00) Vomiting Opiods Allergy (Severe, Uncoded 07/27/23 14:00) Vomiting percocet Allergy (Severe, Uncoded 07/27/23 14:00) Vomiting Percodan Allergy (Severe, Uncoded 07/27/23 14:00) Vomiting Tylenol #3 Allergy (Severe, Uncoded 07/27/23 14:00) Vomiting HPI HPI Comments History of Present Illness Details The patient is a 83 y/o woman with a history of recurring pneumonia and now worsening respiratory symptoms. The last few weeks she underwent a colonoscopy after a positive colo-guard study. She did receive deep sedation. After she had a worsening cough and shortness of breath. She started Augmentin for 5 days and did feel better but then she stopped because that she had another procedure to have. She underwent lithotripsy of her kidney. In continued having worsening respiratory symptoms. She does have a Bentyl inhaler that was prescribed to her and she did use it seldomly. But now after the procedures she is having to use it more often. This morning she had to give herself 4 puffs. In the office today she was found to be significantly wheezy and she did receive a DuoNeb treatment improving her symptoms dramatically. She is concerned that she could have COPD. She is status post total knee replacement. Postoperatively she was admitted with heart failure to the hospital. She was placed on diuretics. She does have a murmur. She has not had an echo in some time. 02/10/2022 the patient is here for a pulm onary follow-up visit for pulmonary clearance. The patient has been doing well from a respiratory status. She continues use her oxygen with activity and also with sleep. She does mine using the oxygen but she would like to see if she can come off it. She does have a portable oxygen concentrator. She continues on the azithromycin. Appears to be very effective for her. Will continue the therapy for now to maintain her mucus burden down and treated for chronic bronchitis. The patient now has to be evaluated for kidney stones. She has a procedure set up with Urology. She likely will need general anesthesia. In the office we did perform a bedside spirometry. It appears that she has no obstructive ventilatory defects. 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 She has been on respiratory inhalers with good response. At this point the patient is doing well from a respiratory status and is able to proceed with general anesthesia and her urological procedure for the kidney stones. The patient has mild risk for perioperative pulmonary complications which include atelectasis, worsening hypoxia, pneumonia and prolonged mechanical ventilation. She is chronically optimized from a medical standpoint and should continue with current respiratory therapy. When she returns in the fall will go ahead and reassess her to see if we can wean her off the oxygen. 05/01/2022 the patient is here for a pulmonary follow-up visit. Overall she is doing well. she did tolerate her the drips the procedure. After she has difficulty voiding. Respiratory status was stable throughout the procedure. Overall she is doing well. She continues to use her oxygen with activity. She does have a small portable oxygen concentrator at 2 L pulse. The patient also uses oxygen continues the nighttime while sleeping. We did undergo a 6 minutes walk test. the patient still requires oxygen supplementation with activity specially outside of the home. I did recommend to continue using portable oxygen concentrator 2 L pulse when she is walking outside her home. While she is at home she could be without it. Except for sleep. She continues her respiratory therapy with good effect. She is planned to have a repeat CT scan of her chest to follow-up with her graft the coming weeks. I did provide her with some aeration in order for her to get is a copy of the report in order to follow-up with her postsurgical changes in her previous pulmonary nodules. 11/04/2022 the patient is here for a pulm onary follow-up visit. The patient had COVID back in July. Afterwards she started developing worsening cough. She also noticed that she is using her oxygen more often. She has been having productive phlegm usually yellowish in color. Denies any hemoptysis. Moderate severity. She did have a CT scan of the chest back in May 2022 at [facility]. I did review it in there was no significant findings there. She does have postoperative changes and she is being followed closely for her aortic stent and also for aneurysm. Therefore, will go ahead and try to treat this appt bronchitis with some antibiotics and also low-dose prednisone. Hopefully she started feeling better. If she does not feel better and is sputum does not improve she can always provide us with sputum culture to see if we can find if she has any resistant organisms. If she continues to be symptomatic additional imaging studies will be warranted. 03/22/2023 the patient is here for [employer] sit. She has been having worsening cough for the last week or 2. The patient has had chest congestion and also significant sinus pressure buildup. She was evaluated in urgent care. She was placed on amoxicillin 3 times a day. Although she was not seen any significant improvement. She did call the office. We switched over to doxycycline. Seems to be doing a little better. Still having significant cough with mucus production. Also having significant runny nose. She was able to expectorate some in the office. Does have some slight wheezing on examination. The patient will continue the doxycycline she has another 7 days. In addition to that will start her on a Medrol pack. Also she will start nasal therapy. Patient likely has a component of sinusitis and also bronchitis. If the patient is no better she will call the office again for further evaluation she is scheduled to undergo a CT scan of the chest soon for her history of aortic endovascular stent. 05/04/2023 the patient is here for a pulm onary follow-up visit. The patient is complaining of worsening chest congestion. She is bringing up greenish phlegm. Moderate severity. It is affecting her breathing. She did finish a course of antibiotics recently. She does have adverse effects multiple antibiotics. We did provide her with a nebulized treatment with hypertonic saline but the patient was not able to produce a sputum specimen. Therefore she will take a cup with her and will submit whenever able. The meantime will start her on Augmentin which she seems to tolerate. She can also use probiotics to minimize symptoms. The patient is scheduled to undergo a repeat CT scan of the chest sometime in May to address her endovascular stent but if the patient has any worsening symptoms she can always call for an earlier evaluation. Otherwise patient continues use her respiratory therapy. Her biggest issue is her proprioception and risk for falls. The patient has been working closely with physical therapy. I did recommend she consider occupational therapy as well. 07/27/2023 the patient is here for pulray gillette follow-up visit. The patient still no better. She still complaining of some chest congestion. 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 Moderate severity. She did complete a course of antibiotics but only partially improved her symptoms. She feels that she needs a longer course of Augmentin. Will go ahead and give her 21 days at this time to treated for superior airway disease. Although she may also have a component of sinusitis. The patient with probiotics. She also monitor closely for any GI symptoms. She continues use her nebulizer. She is expectorating well. We did send her to get a sputum culture and she did have 1 done at [facility] which showed normal andreas. [facility] Medical History (Updated 03/22/23 @ 22:16 by Maulik Arrington MD) Anemia Anemia Descending thoracic aortic aneurysm Chronic heart failure with preserved ejection fraction (HFpEF) PAF (paroxysmal atrial fibrillation) Atherosclerotic cardiovascular disease Chronic respiratory failure Pneumonia Hemoptysis Bronchitis COPD (chronic obstructive pulmonary disease) Pulmonary nodule Social History (Updated 05/09/21 @ 13:56 by Saloni Tolliver Nelson) Household Members: Spouse Housing: House Do you presently have visiting nurse or other home services: Yes (cleaning lady) Alcohol intake: never Comment: pt sleeping Patient Tobacco Use Status: Never used Tobacco Second Hand Smoke Exposure: No service: No Current occupational status: retired Review of Systems Const Denies fatigue, Denies fever(s), Denies malaise and Denies night sweats ENT Denies change in voice, Denies lip swelling, Denies epistaxis, Denies mouth pain, Reports nasal congestion, Reports nasal discharge, Reports nasal obstruction, Reports post nasal drip, Reports sinus pain, Reports sinus pressure and Denies tongue swelling Card Denies chest pain, Reports dyspnea and Reports dyspnea on exertion Resp Reports chest congestion, Reports cough, Denies hemoptysis, Reports excessive phlegm production, Reports dyspnea, Reports dyspnea on exertion and Reports wheezing GI Denies abdominal pain Musc Denies no additional complaints Skin/Breast Denies rash Neuro Denies Neuro-related abnormal movements Psych Denies no additional complaints Endo Denies fatigue Feliciano/Lymph Denies easy bleeding and Denies lymphadenopathy Aller/Immun Denies lip swelling, Denies tongue swelling and Reports wheezing Physical Exam Vital Signs: Last Vital Signs Pulse 72 12/12/23 14:01 Pulse Ox 94 07/27/23 14:01 Oxygen Delivery Method Room Air 07/27/23 14:01 BMI result Body Mass Index 29.6 Last Vital Signs Temp 97.2 F 09/24/20 07:29 Pulse 88 09/24/20 07:29 Resp 18 09/24/20 07:29 BP 153/74 H 09/24/20 07:29 Pulse Ox 95 09/24/20 07:29 Body Mass Index 29.5 Const General: comfortable and alert HEENT General nose exam: Abnormal mucous membranes and turbinates present erythematous Neck Neck: Yes normal visual inspection, Yes full ROM and Yes no lymphadenopathy Chest Chest palpation & inspection: normal inspection of the chest Resp Effort & Inspection: Actively coughing Quality: productive and No prolonged expiratory phase Auscultation: no wheezes and diminished lung sounds Cardio Rate: regular rate Rhythm: regular rhythm Heart sounds: S1 normal heart sound present and S2 normal heart sound present GI Palpation (GI): Soft to palpation and nontender Auscultation: normal bowel sounds Skin General skin exam: rashes and/or lesions noted Extrem General: Yes no clubbing, cyanosis or edema Assessment & Plan Assessment & Plan (1) Bronchitis: Code(s): J40 - Bronchitis, not specified as acute or chronic (2) Chronic respiratory failure: Code(s): J96.10 - Chronic respiratory failure, unspecified whether with hypoxia or hypercapnia Qualifiers: Respiratory failure complication: hypoxia Qualified Code(s): J96.11 - Chronic respiratory failure with hypoxia (3) COPD (chronic obstructive pulmonary disease): Code(s): J44.9 - Chronic obstructive pulmonary disease, unspecified Qualifiers: COPD type: emphysema Emphysema type: centrilobular Qualified Code(s): J43.2 - Centrilobular emphysema (4) Pulmonary nodule: Comment: Positive aspergilloma pathology Code(s): R91.1 - Solitary pulmonary nodule Plan: Status post resection consistent with aspergilloma. No evidence of any additional nodules on her last CT scan. (5) Sinusitis: Code(s): J32.9 - Chronic sinusitis, unspecified Qualifiers: Sinusitis location: pansinusitis Chronicity: subacute Qualified Code(s): J01.40 - Acute pansinusitis, unspecified Plan start Augmentin x 21 days probiotics fluticasone nasal spray ipratropium nasal spray as needed Continue Stiolto daily start Flovent HFA Short-acting beta agonist as needed Continue oxygen supplementation with activity and during sleep follow-up in 6-8 weeks Medications: New fluticasone propionate 110 mcg/actuation (Flovent HFA) 2 puffs inhalation BID 12 grams 6RF 30 days Changed From amoxicillin-pot clavulanate 875-125 mg 1 tab PO BID 10 days 20 tabs 0RF To amoxicillin-pot clavulanate 875-125 mg 1 tab PO BID 21 days 42 tabs 0RF Coding Level of Care Code Est Pt Level 4 (55698) Diagnoses Bronchitis J40 Chronic respiratory failure with hypoxia J96.11 Respiratory failure complication: hypoxia Centrilobular emphysema J43.2 COPD type: emphysema Emphysema type: centrilobular Pulmonary nodule R91.1 Subacute pansinusitis J01.40 Sinusitis location: pansinusitis Chronicity: subacute Time Spent (min) 17
[2023-07-27 14:01] VITALS: PULSE 72; O2SAT 94; BMI 29.6
== END 2023-07-27 14:24 | disposition home or self-care (01) ==
PROVIDERS: PCP Physician Assistant Medical; Visit Provider Hospitalist
DX: J40 Bronchitis, not specified as acute or chronic (principal); J96.11 Chronic respiratory failure with hypoxia; J43.2 Centrilobular emphysema; R91.1 Solitary pulmonary nodule; J01.40 Acute pansinusitis, unspecified
CPT/HCPCS: 99214

== ENCOUNTER → 2023-07-27 13:46 | Outpatient (BNVA) | payer MEDICARE, SELFPAY | PROVIDERS: PCP Physician Assistant Medical; Visit Provider Hospitalist | DX: J96.11 Chronic respiratory failure with hypoxia (principal); J43.2 Centrilobular emphysema; J01.40 Acute pansinusitis, unspecified; J40 Bronchitis, not specified as acute or chronic; R91.1 Solitary pulmonary nodule | CPT/HCPCS: 99212 ==

== ENCOUNTER 2023-08-18 15:12 | Outpatient (REF) | payer MEDICARE, OTHER, SELFPAY ==
--- NOTE | ~2023-08-18 | CT_ITS ---
EXAMINATION: CT CHEST WITHOUT CONTRAST CLINICAL INFORMATION: Pulmonary nodules. COMPARISON: CT angiogram chest 09/19/[address] abdomen pelvis 11/25/2021. TECHNIQUE: Multidetector volumetric CT imaging of the chest was done. Axial MIP volume rendering provided. Sagittal and coronal reformatted images were obtained. This CT examination was performed using dose optimization techniques as appropriate, variously including the following: *Automated exposure control *Adjustment of mA and/or kV according to patient size (this includes techniques or standardized protocols for targeted exams where dose is matched to indication/reason for exam; i.e. extremities or head) *Use of iterative reconstruction technique DLP: 146 mGy-cm FINDINGS: LUNGS: Marked emphysematous changes are present in the lungs. Bullous changes most marked at the left apex along with a cluster of smaller bullae in the right lower lobe posteriorly. Bronchial wall thickening is present along with some mild lower lobe bronchiectasis. Evidence of right partial pneumonectomy with suture line in the upper lung. Some small pulmonary micronodules are seen with none measuring over 3 mm in size. There is one ill-defined flat 9 x 2 mm seen in the right upper lobe (5:184 and neal image) that probably represents residual scarring from previous infiltrate that was present in this region. This can be followed on future CT chest exams. MEDIASTINUM: Some prominent precarinal lymph nodes are present probably unchanged from prior but difficult to see on the prior study because of marked motion artifact. An aortic stent graft is present beginning in the mid transverse arch just after the origin of the left subclavian extending to just above the diaphragmatic hiatus. CORONARY ARTERY CALCIFICATION: Extensive. PLEURA: There is no pleural effusion. No pleural mass or thickening. AXILLA: No lymphadenopathy. UPPER ABDOMEN: The spleen is very lobular in appearance and bilateral nephrolithiasis is present, unchanged from prior. OSSEOUS STRUCTURES: Degenerative changes are present throughout the spine along with a thoracic kyphosis. No bony destructive lesions are seen. CT/CT chest wo IV con IMPRESSION: 1. Marked emphysematous changes. 2. Evidence of partial right pneumonectomy. 3. Some small pulmonary micronodules are seen with none measuring over 3 mm in size. There is one ill-defined flat 9 x 2 mm seen in the right upper lobe (5:184 and neal image) that probably represents residual scarring from previous infiltrate that was present in this region. This can be followed on future CT chest exams. 4. Other incidental findings, as described above, including aortic stent graft, bilateral nephrolithiasis and degenerative changes in the spine. According to the UPDATED 2017 Fleischner Society recommendations, the advised follow up imaging for a single solid nodule measuring greater than [address] of [address] at 3 months, PET/CT, or tissue sampling as clinically appropriate. However, given the presence of the previous infiltrates in the area of concern, I think it is reasonable to do the follow up study in 6-12 months.
== END 2023-08-18 15:13 | disposition home or self-care (01) ==
LOC: HO.CT 15:12
PROVIDERS: PCP Physician Assistant Medical; Visit Provider Hospitalist
DX: R91.1 Solitary pulmonary nodule (principal)
CPT/HCPCS: 71250

== ENCOUNTER 2023-09-14 13:00 | Outpatient (AMB) | payer MEDICARE, OTHER, SELFPAY ==
--- NOTE | 2023-09-14 13:00 | A.OFFVIS_ITS ---
Intake Vital Signs 09/14/23 13:01 Height 5 ft 4 in Weight 174 lb BMI 29.9 BP 134/64 Blood Pressure Location Lt brachial Position Sitting Pulse 83 Pulse Source Pulse Oximeter Pulse Oximetry (%) 93 Oxygen Delivery Method Room Air Intake Visit Reasons: Covid +, COPD Diesel Engine Erector Required: No Allergies Morphine Allergy (Severe, Uncoded 09/14/23 13:01) Vomiting Opiods Allergy (Severe, Uncoded 09/14/23 13:01) Vomiting percocet Allergy (Severe, Uncoded 09/14/23 13:01) Vomiting Percodan Allergy (Severe, Uncoded 09/14/23 13:01) Vomiting Tylenol #3 Allergy (Severe, Uncoded 09/14/23 13:01) Vomiting HPI HPI Comments History of Present Illness Details The patient is a 83 y/o woman with a history of recurring pneumonia and now worsening respiratory symptoms. The last few weeks she underwent a colonosc opy after a positive colo-guard study. She did receive deep sedation. After she had a worsening cough and shortness of breath. She started Augmentin for 5 days and did feel better but then she stopped because that she had another procedure to have. She underwent lithotripsy of her kidney. In continued having worsening respiratory symptoms. She does have a Bentyl inhaler that was prescribed to her and she did use it seldomly. But now after the procedures she is having to use it more often. This morning she had to give herself 4 puffs. In the office today she was found to be significantly wheezy and she did receive a DuoNeb treatment improving her symptoms dramatically. She is concerned that she could have COPD. She is status post total knee replacement. Postoperatively she was admitted with heart failure to the hospital. She was placed on diuretics. She does have a murmur. She has not had an echo in some time. 02/10/2022 the patient is here for a pulm onary follow-up visit for pulmonary clearance. The patient has been doing well from a respiratory status. She continues use her oxygen with activity and also with sleep. She does mine using the oxygen but she would like to see if she can come off it. She does have a portable oxygen concentrator. She continues on the azithromycin. Appears to be very effective for her. Will continue the therapy for now to maintain her mucus burden down and treated for chronic bronchitis. The patient now has to be evaluated for kidney stones. She has a procedure set up with Urology. She likely will need general anesthesia. In the office we did perform a bedside spirometry. It appears that she has no obstructive ventilatory defects. 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 She has been on respiratory inhalers with good response. At this point the patient is doing well from a respiratory status and is able to proceed with general anesthesia and her urological procedure for the kidney stones. The patient has mild risk for perioperative pulmonary complications which include atelectasis, worsening hypoxia, pneumonia and prolonged mechanical ventilation. She is chronically optimized from a medical standpoint and should continue with current respiratory therapy. When she returns in the fall will go ahead and reassess her to see if we can wean her off the oxygen. 05/01/2022 the patient is here for a pulmonary follow-up visit. Overall she is doing well. she did tolerate her the drips the procedure. After she has difficulty voiding. Respiratory status was stable throughout the procedure. Overall she is doing well. She continues to use her oxygen with activity. She does have a small portable oxygen concentrator at 2 L pulse. The patient also uses oxygen continues the nighttime while sleeping. We did undergo a 6 minutes walk test. the patient still requires oxygen supplementation with activity specially outside of the home. I did recommend to continue using portable oxygen concentrator 2 L pulse when she is walking outside her home. While she is at home she could be without it. Except for sleep. She continues her respiratory therapy with good effect. She is planned to have a repeat CT scan of her chest to follow-up with her graft the coming weeks. I did provide her with some aeration in order for her to get is a copy of the report in order to follow-up with her postsurgical changes in her previous pulmonary nodules. 11/04/2022 the patient is here for a pulm onary follow-up visit. The patient had COVID back in July. Afterwards she started developing worsening cough. She also noticed that she is using her oxygen more often. She has been having productive phlegm usually yellowish in color. Denies any hemoptysis. Moderate severity. She did have a CT scan of the chest back in May 2022 at [facility]. I did review it in there was no significant findings there. She does have postoperative changes and she is being followed closely for her aortic stent and also for aneurysm. Therefore, will go ahead and try to treat this appt bronchitis with some antibiotics and also low-dose prednisone. Hopefully she started feeling better. If she does not feel better and is sputum does not improve she can always provide us with sputum culture to see if we can find if she has any resistant organisms. If she continues to be symptomatic additional imaging studies will be warranted. 03/22/2023 the patient is here for sick vi sit. She has been having worsening cough for the last week or 2. The patient has had chest congestion and also significant sinus pressure buildup. She was evaluated in urgent care. She was placed on amoxicillin 3 times a day. Although she was not seen any significant improvement. She did call the office. We switched over to doxycycline. Seems to be doing a little better. Still having significant cough with mucus production. Also having significant runny nose. She was able to expectorate some in the office. Does have some slight wheezing on examination. The patient will continue the doxycycline she has another 7 days. In addition to that will start her on a Medrol pack. Also she will start nasal therapy. Patient likely has a component of sinusitis and also bronchitis. If the patient is no better she will call the office again for further evaluation she is scheduled to undergo a CT scan of the chest soon for her history of aortic endovascular stent. 05/04/2023 the patient is here for a pulm onary follow-up visit. The patient is complaining of worsening chest congestion. She is bringing up greenish phlegm. Moderate severity. It is affecting her breathing. She did finish a course of antibiotics recently. She does have adverse effects multiple antibiotics. We did provide her with a nebulized treatment with hypertonic saline but the patient was not able to produce a sputum specimen. Therefore she will take a cup with her and will submit whenever able. The meantime will start her on Augmentin which she seems to tolerate. She can also use probiotics to minimize symptoms. The patient is scheduled to undergo a repeat CT scan of the chest sometime in May to address her endovascular stent but if the patient has any worsening symptoms she can always call for an earlier evaluation. Otherwise patient continues use her respiratory therapy. Her biggest issue is her proprioception and risk for falls. The patient has been working closely with physical therapy. I did recommend she consider occupational therapy as well. 07/27/2023 the patient is here for pulmo nary follow-up visit. The patient still no better. She still complaining of some chest congestion. As far as the color of the mucus is kind little audit partner in color but still greenish in color. Moderate severity. She did complete a course of antibiotics but only partially improved her symptoms. She feels that she needs a longer course of Augmentin. Will go ahead and give her 21 days at this time to treated for superior airway disease. Although she may also have a component of sinusitis. The patient with probiotics. She also monitor closely for any GI symptoms. She continues use her nebulizer. She is expectorating well. We did send her to get a sputum culture and she did have 1 done at [facility] which showed normal f sorin. 09/14/2023 the patient has a telehealth v isit today. The patient is started developing fevers in addition to body aches. She needs sleep tested negative for COVID. Subsequently after that she was positive. The patient is already 3 days into her symptoms. She already had a bad experience with Paxlovid and was not interested in taking it. She is developing a congested cough with yellow phlegm. Moderate severity. She is using her nebulizer with some relief. denies any wheezing at this time. The patient will go ahead and start doxycycline to treat her for postviral bacterial infection. In the meantime the patient recently had a CT scan of the chest before she got sick. The pulmonary nodules have been stable along with her postoperative changes. The patient however has a new right upper lobe pulmonary nodule measuring 9 mm in size. I did review the images myself. It has smooth borders and iit is intermediate in size and therefore will follow-up with a CT scan in 6 months' time. [facility] Medical History (Updated 09/14/23 @ 20:32 by Maulik Arrington MD) Anemia Anemia Descending thoracic aortic aneurysm Chronic heart failure with preserved ejection fraction (HFpEF) PAF (paroxysmal atrial fibrillation) Atherosclerotic cardiovascular disease Chronic respiratory failure Pneumonia Hemoptysis Bronchitis COPD (chronic obstructive pulmonary disease) Pulmonary nodule Social History (Updated 05/09/21 @ 13:56 by PITO Ovalles) Household Members: Spouse Housing: House Do you presently have visiting nurse or other home services: Yes (cleaning lady) Alcohol intake: never Comment: pt sleeping Patient Tobacco Use Status: Never used Tobacco Second Hand Smoke Exposure: No service: No Current occupational status: retired Review of Systems Const Reports body aches, Reports chills, Denies fatigue, Reports fever(s), Denies malaise and Denies night sweats ENT Denies change in voice, Denies lip swelling, Denies epistaxis, Denies mouth pain, Reports nasal congestion, Reports nasal discharge, Reports nasal obstruction, Reports post nasal drip, Reports sinus pain, Reports sinus pressure and Denies tongue swelling Card Denies chest pain, Reports dyspnea and Reports dyspnea on exertion Resp Reports chest congestion, Reports cough, Denies hemoptysis, Reports excessive phlegm production, Reports dyspnea, Reports dyspnea on exertion and Reports wheezing GI Denies abdominal pain Musc Denies no additional complaints Skin/Breast Denies rash Neuro Denies Neuro-related abnormal movements Psych Denies no additional complaints Endo Denies fatigue Feliciano/Lymph Denies easy bleeding and Denies lymphadenopathy Aller/Immun Denies lip swelling, Denies tongue swelling and Reports wheezing Physical Exam Vital Signs: Last Vital Signs Pulse 83 09/14/23 13:01 BP 134/64 09/14/23 13:01 Pulse Ox 93 09/14/23 13:01 Oxygen Delivery Method Room Air 09/14/23 13:01 BMI result Body Mass Index 29.9 Const General: cooperative Orientation/consciousness: patient oriented x3 Resp Effort & Inspection: able to speak in complete sentences Neuro General: patient oriented x3 Assessment & Plan Assessment & Plan (1) COVID-19: Code(s): U07.1 - COVID-19 (2) Bronchitis: Code(s): J40 - Bronchitis, not specified as acute or chronic (3) Chronic respiratory failure: Code(s): J96.10 - Chronic respiratory failure, unspecified whether with hypoxia or hypercapnia Qualifiers: Respiratory failure complication: hypoxia Qualified Code(s): J96.11 - Chronic respiratory failure with hypoxia (4) COPD (chronic obstructive pulmonary disease): Code(s): J44.9 - Chronic obstructive pulmonary disease, unspecified Qualifiers: COPD type: emphysema Emphysema type: centrilobular Qualified Code(s): J43.2 - Centrilobular emphysema (5) Pulmonary nodule: Comment: Positive aspergilloma pathology Code(s): R91.1 - Solitary pulmonary nodule Plan: Status post resection consistent with aspergilloma. No evidence of any additional nodules on her last CT scan. Plan Start Doxycycline Nebulizer 1-2 times a day Continue Stiolto daily start QVAR Short-acting beta agonist as needed Continue oxygen supplementation with activity and during sleep repeat CT chest in 6 months follow-up in 6-8 months Orders: Orders CT chest wo IV con 6 Months R91.1 - Solitary pulmonary nodule Medications: New beclomethasone dipropionate 80 mcg/actuation (Qvar RediHaler) 1 inh inhalation BID 30 days 10.6 grams 11RF R91.1 - Solitary pulmonary nodule doxycycline hyclate 100 mg PO BID 10 days 20 caps 0RF R91.1 - Solitary pulmonar y nodule Telehealth Telehealth Location of provider rendering services: practice address Location of patient: address on file Patient Identification confirmed using: Name, : Yes Telehealth method: voice only Patient verbally consented to treatment: Yes Patient verbally consented to billing insurance company: Yes Patient informed of any privacy concerns related to visit: Yes Coding Level of Care Code Tele Est Pt Level 4 (03842) Diagnoses COVID-19 U07.1 Bronchitis J40 Chronic respiratory failure with hypoxia J96.11 Respiratory failure complication: hypoxia Centrilobular emphysema J43.2 COPD type: emphysema Emphysema type: centrilobular Pulmonary nodule R91.1 Time Spent (min) 15
[2023-09-14 13:01] VITALS: BP 134/64; PULSE 83; O2SAT 93; BMI 29.9
== END 2023-09-14 13:48 | disposition home or self-care (01) ==
LOC: HO.HPS 13:00
PROVIDERS: PCP Physician Assistant Medical; Visit Provider Hospitalist
DX: J43.2 Centrilobular emphysema (principal); U07.1 COVID-19; J96.11 Chronic respiratory failure with hypoxia; R91.1 Solitary pulmonary nodule
CPT/HCPCS: 99442

== ENCOUNTER → 2023-09-14 13:00 | Outpatient (BNVA) | payer MEDICARE, OTHER, SELFPAY | PROVIDERS: PCP Physician Assistant Medical; Visit Provider Hospitalist | DX: J44.9 Chronic obstructive pulmonary disease, unspecified (principal) ==

== ENCOUNTER 2024-01-03 15:25 | Outpatient (AMB) | payer MEDICARE, OTHER, SELFPAY ==
[2024-01-03 15:36] VITALS: BP 140/58; PULSE 76; O2SAT 91; BMI 28.8
--- NOTE | 2024-01-03 15:36 | A.OFFVIS_ITS ---
Vital Signs 01/03/24 15:36 Height 5 ft 4 in Weight 167 lb 8.821 oz BMI 28.8 BP 140/58 H Blood Pressure Location Lt brachial Position Sitting Pulse 76 Pulse Source Pulse Oximeter Pulse Oximetry (%) 91 L Oxygen Delivery Method Nasal Cannula Intake Visit Reasons: dyspnea with exertion Allergies Morphine Allergy (Severe, Uncoded 01/03/24 15:40) Vomiting Opiods Allergy (Severe, Uncoded 01/03/24 15:40) Vomiting percocet Allergy (Severe, Uncoded 01/03/24 15:40) Vomiting Percodan Allergy (Severe, Uncoded 01/03/24 15:40) Vomiting Tylenol #3 Allergy (Severe, Uncoded 01/03/24 15:40) Vomiting HPI HPI dyspnea with exertion: Details: Monica is a pleasant 83 year old female, former smoker, with underlying COPD, chronic respiratory failure on supplemental oxygen, anemia, pulmonary nodule, atrial fibrillation and HFpEF. At baseline she is moderately controlled on QVAR, Stiolto and albuterol MDI. Today she presents for an acute visit. She reports productive cough that started last week and developed worsening dyspnea with decreased oxygen when using Inogen setting 2. Reports oxygen is maintained above 90% when using concentrator at home. She denies any wheezing or respiratory distress. She was seen on wednesday at urgent care in [place] with reported negative CXR. She was started on zpak and prednisone, however did not start the prednisone. She feels minimal changes in cough with zpak. She denies fevers, chills, or sick contacts. Of note, she is being closely monitored for anemia by PCP. [facility] Medical History (Updated 09/14/23 @ 20:32 by Maulik Arrington MD) Anemia Anemia Descending thoracic aortic aneurysm Chronic heart failure with preserved ejection fraction (HFpEF) PAF (paroxysmal atrial fibrillation) Atherosclerotic cardiovascular disease Chronic respiratory failure Pneumonia Hemoptysis Bronchitis COPD (chronic obstructive pulmonary disease) Pulmonary nodule Social History (Updated 01/03/24 @ 15:39 by Gala Mosqueda CMA) Household Members: Spouse Housing: House Do you presently have visiting nurse or other home services: Yes (cleaning lady) Alcohol intake: never Comment: pt sleeping Patient Tobacco Use Status: Former Tobacco user Quit Date: 14 years ago Tobacco use type: Cigarette Second Hand Smoke Exposure: No service: No Current occupational status: retired Review of Systems Const Denies chills, Denies excessive sweating, Denies fever(s), Denies headache(s) and Denies night sweats Eyes Denies dry eyes, Denies irritation and Denies itchy eyes ENT Reports Normal hearing present, Denies headache(s), Denies nasal congestion, Denies nasal discharge, Denies post nasal drip and Denies sore throat Card Denies chest pain, Denies chest pain at rest, Denies chest pain with activity, Denies claudication, Denies leg edema, Denies orthopnea and Denies paroxysmal nocturnal dyspnea Resp Denies excessive phlegm production, Denies pain on inspiration, Denies pain with cough, Denies stridor and Denies wheezing Musc Denies myalgias Neuro Reports Normal hearing present and Denies headache(s) Endo Denies excessive sweating Feliciano/Lymph Denies lymphadenopathy Aller/Immun Denies itchy eyes, Denies seasonal rhinorrhea and Denies wheezing Physical Exam Vital Signs: Last Vital Signs Pulse 76 01/03/24 15:36 BP 140/58 H 01/03/24 15:36 Pulse Ox 91 L 01/03/24 15:36 Oxygen Delivery Method Nasal Cannula 01/03/24 15:36 BMI result Body Mass Index 28.8 Const General: cooperative, healthy appearing, comfortable, no acute distress, well developed and alert Orientation/consciousness: patient oriented x3 Limitations: no limitations HEENT Head: Yes normal to inspection, Yes normocephalic and Yes atraumatic Ears: hearing grossly normal bilaterally and external ears normal Eyes General: appearance normal, both eyes and all related structures Eyelids: Yes eyelids normal Sclerae: sclerae normal EOM: EOMs intact bilaterally Neck Neck: Yes normal visual inspection and Yes no lymphadenopathy Lymphatic: no lymphadenopathy noted Chest Chest palpation & inspection: normal inspection of the chest Resp Effort & Inspection: normal respiratory effort, able to speak in complete sentences, no audible wheezes, no stridor, not tachypneic, no tripod positioning and no use of accessory muscles Auscultation: no crackles and wheezes expiratory wheezes Cardio Jugular venous distension: no JVD Rate: regular rate Skin Other: warm, dry General skin exam: no rashes or lesions noted Neuro General: patient oriented x3 Cranial nerves: Yes Normal hearing present Cognition (Neuro): normal cognition Gait exam (Neuro): Normal gait present Extrem General: Yes normal to inspection, Yes capillary refill normal, Yes no clubbing, cyanosis or edema and Yes no pedal edema Psych Appearance: grossly normal and well kempt Speech and movement: Normal speech and movement present and Clear speech present Affect: normal affect Attitude: cooperative Thought process: Normal thought process present Thought content: Normal thought content present Insight: Good insight present (Psych) Judgement: Good judgement present (Psych) Assessment & Plan Assessment & Plan (1) Bronchitis: Code(s): J40 - Bronchitis, not specified as acute or chronic Category: Medical (2) Chronic respiratory failure: Code(s): J96.10 - Chronic respiratory failure, unspecified whether with hypoxia or hyperc apnia Category: Medical Qualifiers: Respiratory failure complication: hypoxia Qualified Code(s): J96.11 - Chronic respiratory failure with hypoxia (3) COPD (chronic obstructive pulmonary disease): Code(s): J44.9 - Chronic obstructive pulmonary disease, unspecified Category: Medical Qualifiers: COPD type: emphysema Emphysema type: centrilobular Qualified Code(s): J43.2 - Centrilobular emphysema Plan On exam patient with expiratory wheezing throughout, no crackles noted. Patient also reported minimal change in cough with zpak. Will switch to vantin and send in prednisone. Discussed importance of prednisone use, as she was previously prescribed but did not want to use. She was in agreement of this. Reviewed with patient that she is likely not a candidate for POC acutely and needs to continue to use her concentrator and oxygen tanks when outside the home, as she is reported maintaining oxygen with use of concentrator <90%. Will have close follow up with patient and perform 6MWT at next visit. She is aware if symptoms worsen to seek emergent care and if symptoms do not improve obtain CXR and call office. All questions were answered and patient is in agreement of plan. Orders: Orders XR chest 2V 01/03/24 J40 - Bronchitis, not specified as acute or chronic Medications: New albuterol sulfate 2.5 mg (3 mL) inhalation Q4-6H PRN 90 mL 0RF shortness of breath or wheezing prednisone 20 mg PO BID 10 tabs 0RF Refilled cefpodoxime must administer with a meal/food 200 mg PO BID 10 days 20 tabs 0RF Discontinued beclomethasone dipropionate 80 mcg/actuation (Qvar RediHaler) Discontinued Reason: More recent result 1 inh inhalation BID 30 days 10.6 grams 11RF Coding Level of Care Code Est Pt Level 4 (53464) Diagnoses Bronchitis J40 Chronic respiratory failure with hypoxia J96.11 Respiratory failure complication: hypoxia Centrilobular emphysema J43.2 COPD type: emphysema Emphysema type: centrilobular
== END 2024-01-03 16:31 | disposition home or self-care (01) ==
PROVIDERS: PCP Physician Assistant Medical; Visit Provider Nurse Practitioner Family
DX: J40 Bronchitis, not specified as acute or chronic (principal); J96.11 Chronic respiratory failure with hypoxia; J43.2 Centrilobular emphysema
CPT/HCPCS: 99214

== ENCOUNTER → 2024-01-03 15:25 | Outpatient (BNVA) | payer MEDICARE, OTHER, SELFPAY | PROVIDERS: PCP Physician Assistant Medical; Visit Provider Nurse Practitioner Family | DX: J40 Bronchitis, not specified as acute or chronic (principal); J96.11 Chronic respiratory failure with hypoxia; J43.2 Centrilobular emphysema | CPT/HCPCS: 99212 ==

== ENCOUNTER 2024-01-17 15:43 | Outpatient (REF) | payer MEDICARE, OTHER, SELFPAY ==
--- NOTE | ~2024-01-17 | XR_ITS ---
EXAMINATION: XR CHEST CLINICAL INFORMATION: Bronchitis, nonspecified is acute or chronic COMPARISON: Chest 09/19/2020, 07/13/2020 TECHNIQUE: 2 views of the chest were obtained. FINDINGS: The lungs are well expanded. Bronchial wall thickening with mild interstitial prominence is again noted. Anastomotic sutures are seen in the right upper lobe. Slight linear density in the right lung is consistent with scar and/or minimal atelectasis. No focal consolidation, interstitial pulmonary edema or pneumothorax. No pleural effusion. Interval increase in size of the cardiac silhouette. Moderate cardiomegaly is noted. Tortuous aorta with stent graft is seen. No acute osseous abnormality. XR/XR chest 2V IMPRESSION: 1. No acute cardiopulmonary disease. 2. Interval increase in size of the cardiac silhouette.
== END 2024-01-17 15:44 | disposition home or self-care (01) ==
LOC: HO.XRAY 15:43
PROVIDERS: PCP Physician Assistant Medical; Visit Provider Nurse Practitioner Family
DX: J40 Bronchitis, not specified as acute or chronic (principal); J96.11 Chronic respiratory failure with hypoxia; J43.2 Centrilobular emphysema
CPT/HCPCS: 71046; 87070; 87205; 99212

== ENCOUNTER 2024-01-17 15:43 | Outpatient (AMB) | payer MEDICARE, OTHER, SELFPAY ==
[2024-01-17 15:46] VITALS: BP 124/62; PULSE 91; O2SAT 84; BMI 30.1
--- NOTE | 2024-01-17 15:46 | A.OFFVIS_ITS ---
Vital Signs 01/17/24 15:46 Height 5 ft 4 in Weight 175 lb 4.28 oz BMI 30.1 BP 124/62 Blood Pressure Location Rt brachial Position Sitting Pulse 91 Pulse Source Pulse Oximeter Pulse Oximetry (%) 84 L Oxygen Delivery Method Nasal Cannula Intake Visit Reasons: Dyspnea with Exertion Allergies Morphine Allergy (Severe, Uncoded 01/17/24 15:50) Vomiting Opiods Allergy (Severe, Uncoded 01/17/24 15:50) Vomiting percocet Allergy (Severe, Uncoded 01/17/24 15:50) Vomiting Percodan Allergy (Severe, Uncoded 01/17/24 15:50) Vomiting Tylenol #3 Allergy (Severe, Uncoded 01/17/24 15:50) Vomiting HPI HPI Dyspnea with Exertion: Details: Monica is a pleasant 83 year old female, former smoker, with underlying COPD, chronic respiratory failure on supplemental oxygen, anemia, pulmonary nodule, atrial fibrillation and HFpEF. At baseline she is moderately controlled on QVAR, Stiolto and albuterol MDI. She reports productive cough that started three weeks ago and developed worsening dyspnea with decreased oxygen when using Inogen setting 2. Reports oxygen is maintained above 90% when using concentrator at home. She denies any wheezing or respiratory distress. She was seen in urgent care in [place] with reported negative CXR. She was started on zpak and prednisone, however did not start the prednisone. She feels minimal changes in cough with zpak. She denies fevers, chills, or sick contacts. She was then treated in our office with vantin and prednisone, with no significant changes in symptoms. She continues to report dyspnea, productive cough with tenacious brandon sputum. Denies wheezing or chest tightness. Of note, she also reports trace BLE edema, not on diuretics at this time. [facility] Medical History (Updated 09/14/23 @ 20:32 by Maulik Arrington MD) Anemia Anemia Descending thoracic aortic aneurysm Chronic heart failure with preserved ejection fraction (HFpEF) PAF (paroxysmal atrial fibrillation) Atherosclerotic cardiovascular disease Chronic respiratory failure Pneumonia Hemoptysis Bronchitis COPD (chronic obstructive pulmonary disease) Pulmonary nodule Social History (Updated 01/17/24 @ 21:46 by Archana Villalpando NP) Household Members: Spouse Housing: House Do you presently have visiting nurse or other home services: Yes (cleaning lady) Patient Tobacco Use Status: Former Tobacco user Tobacco use type: Cigarette Second Hand Smoke Exposure: No service: No Current occupational status: retired Review of Systems Const Denies chills, Denies excessive sweating, Denies fever(s), Denies headache(s) and Denies night sweats Eyes Denies dry eyes, Denies irritation and Denies itchy eyes ENT Reports Normal hearing present, Denies headache(s), Denies nasal congestion, Denies nasal discharge, Denies post nasal drip and Denies sore throat Card Denies chest pain, Denies chest pain at rest, Denies chest pain with activity, Denies claudication, Denies leg edema, Denies orthopnea and Denies paroxysmal nocturnal dyspnea Resp Denies excessive phlegm production, Denies pain on inspiration, Denies pain with cough, Denies stridor and Denies wheezing Musc Denies myalgias Neuro Reports Normal hearing present and Denies headache(s) Endo Denies excessive sweating Feliciano/Lymph Denies lymphadenopathy Aller/Immun Denies itchy eyes, Denies seasonal rhinorrhea and Denies wheezing Physical Exam Vital Signs: Last Vital Signs Pulse 91 01/17/24 15:46 BP 124/62 01/17/24 15:46 Pulse Ox 84 L 01/17/24 15:46 Oxygen Delivery Method Nasal Cannula 01/17/24 15:46 BMI result Body Mass Index 30.1 Const General: cooperative, healthy appearing, comfortable, no acute distress, well developed and alert Orientation/consciousness: patient oriented x3 Limitations: no limitations HEENT Head: Yes normal to inspection, Yes normocephalic and Yes atraumatic Ears: hearing grossly normal bilaterally and external ears normal Eyes General: appearance normal, both eyes and all related structures Eyelids: Yes eyelids normal Sclerae: sclerae normal EOM: EOMs intact bilaterally Neck Neck: Yes normal visual inspection and Yes no lymphadenopathy Lymphatic: no lymphadenopathy noted Chest Chest palpation & inspection: normal inspection of the chest Resp Other: wet cough during visit with rhonchi and expiratory wheezes throughout Effort & Inspection: normal respiratory effort, able to speak in complete sentences, no audible wheezes, no stridor, not tachypneic, no tripod positioning and no use of accessory muscles Auscultation: no crackles and wheezes expiratory wheezes Cardio Jugular venous distension: no JVD Rate: regular rate Skin Other: warm, dry General skin exam: no rashes or lesions noted Neuro General: patient oriented x3 Cranial nerves: Yes Normal hearing present Cognition (Neuro): normal cognition Gait exam (Neuro): Normal gait present Extrem Other: 1+ pitting edema BLE Psych Appearance: grossly normal and well kempt Speech and movement: Normal speech and movement present and Clear speech present Affect: normal affect Attitude: cooperative Thought process: Normal thought process present Thought content: Normal thought content present Insight: Good insight present (Psych) Judgement: Good judgement present (Psych) Assessment & Plan Assessment & Plan (1) Bronchitis: Code(s): J40 - Bronchitis, not specified as acute or chronic Category: Medical (2) Chronic respiratory failure: Code(s): J96.10 - Chronic respiratory failure, unspecified whether with hypoxia or hypercapnia Category: Medical Qualifiers: Respiratory failure complication: hypoxia Qualified Code(s): J96.11 - Chronic respiratory failure with hypoxia (3) COPD (chronic obstructive pulmonary disease): Code(s): J44.9 - Chronic obstructive pulmonary disease, unspecified Category: Medical Qualifiers: COPD type: emphysema Emphysema type: centrilobular Qualified Code(s): J43.2 - Centrilobular emphysema Plan At the last visit, patient was prescribed vantin and prednisone with no change in symptoms. Patient was able to produce sputum sample in office. Will send for culture and adjust antibiotics as needed. Will empirically treat with Levaquin for possible pseudomonas coverage as well as prednisone. Discussed adverse effects including tendon rupture. She is aware if this develops to discontinue. Encouraged patient to use probiotics given frequent antibiotic use. If symptoms persist, will send for bronchoscopy with Dr. Arrington. Will also send for CXR, as she was instructed to obtain if symptoms did not improve at the last visit and did not. Patient's oxygen saturation was 91% at rest using setting of 5 on Inogen. Discussed case with Dr. Arrington who was present during visit. All questions were answered and patient is in agreement of plan. Will follow up after sputum results. She is aware to call if symptoms do not improve and if worsen seek emergent care. Orders: Orders Sputum Cult + Gram stain Today J40 - Bronchitis, not specified as acute or chronic Medications: New levofloxacin 500 mg PO DAILY 7 tabs 0RF prednisone 40 mg (2 x 20 mg) PO DAILY 10 tabs 0RF Coding Level of Care Code Est Pt Level 4 (55113) Diagnoses Bronchitis J40 Chronic respiratory failure with hypoxia J96.11 Respiratory failure complication: hypoxia Centrilobular emphysema J43.2 COPD type: emphysema Emphysema type: centrilobular
== END 2024-01-17 20:02 | disposition home or self-care (01) ==
PROVIDERS: PCP Physician Assistant Medical; Visit Provider Nurse Practitioner Family
DX: J40 Bronchitis, not specified as acute or chronic (principal); J96.11 Chronic respiratory failure with hypoxia; J43.2 Centrilobular emphysema
CPT/HCPCS: 99214

== ENCOUNTER 2024-01-26 11:01 | Outpatient (AMB) | payer MEDICARE, OTHER, SELFPAY ==
[2024-01-26 11:04] VITALS: PULSE 89; O2SAT 88; BMI 28.7
--- NOTE | 2024-01-26 11:04 | A.OFFVIS_ITS ---
Vital Signs 01/26/24 11:04 Height 5 ft 4 in Weight 167 lb BMI 28.7 Pulse 89 Pulse Source Pulse Oximeter Pulse Oximetry (%) 88 L Oxygen Delivery Method Room Air Comment 5 Liters Oxygen(Inogen One) Intake Visit Reasons: COPD Liver Trimmer Required: No Allergies Morphine Allergy (Severe, Uncoded 01/26/24 11:08) Vomiting Opiods Allergy (Severe, Uncoded 01/26/24 11:08) Vomiting percocet Allergy (Severe, Uncoded 01/26/24 11:08) Vomiting Percodan Allergy (Severe, Uncoded 01/26/24 11:08) Vomiting Tylenol #3 Allergy (Severe, Uncoded 01/26/24 11:08) Vomiting HPI Comments Details: The patient is a 83 y/o woman with a history of recurring pneumonia and now worsening respiratory symptoms. The last few weeks she underwent a colonoscopy after a positive colo-guard study. She did receive deep sedation. After she had a worsening cough and shortness of breath. She started Augmentin for 5 days and did feel better but then she stopped because that she had another procedure to have. She underwent lithotripsy of her kidney. In continued having worsening respiratory symptoms. She does have a Bentyl inhaler that was prescribed to her and she did use it seldomly. But now after the procedures she is having to use it more often. This morning she had to give herself 4 puffs. In the office today she was found to be significantly wheezy and she did receive a DuoNeb treatment improving her symptoms dramatically. She is concerned that she could have COPD. She is status post total knee replacement. Postoperatively she was admitted with heart failure to the hospital. She was placed on diuretics. She does have a murmur. She has not had an echo in some time. 07/27/2023 the patient is here for pulmonary follow-up visit. The patient still no better. She still complaining of some chest congestion. As far as the color of the mucus is kind little therapeutic sales specialist in color but still greenish in color. Moderate severity. She did complete a course of antibiotics but only partially improved her symptoms. She feels that she needs a longer course of Augmentin. Will go ahead and give her 21 days at this time to treated for superior airway disease. Although she may also have a component of sinusitis. The patient with probiotics. She also monitor closely for any GI symptoms. She continues use her nebulizer. She is expectorating well. We did send her to get a sputum culture and she did have 1 done at [facility] which showed normal andreas. 09/14/2023 the patient has a telehealth visit today. The patient is started developing fevers in addition to body aches. She needs sleep tested negative for COVID. Subsequently after that she was positive. The patient is already 3 days into her symptoms. She already had a bad experience with Paxlovid and was not interested in taking it. She is developing a congested cough with yellow phlegm. Moderate severity. She is using her nebulizer with some relief. denies any wheezing at this time. The patient will go ahead and start doxycycline to treat her for postviral bacterial infection. In the meantime the patient recently had a CT scan of the chest before she got sick. The pulmonary nodules have been stable along with her postoperative changes. The patient however has a new right upper lobe pulmonary nodule measuring 9 mm in size. I did review the images myself. It has smooth borders and iit is intermediate in size and therefore will follow-up with a CT scan in 6 months' time. 01/26/2024 the patient is here for a pulmonary follow-up visit. The patient did complete another course of antibiotics. She also was placed on diuretics. The diuresis has helped her significant edema and shortness of breath. She feels that she is doing better this time. She was concerned with some crepitations over the weekend. But ultimately did get better. She came in today she had an irregular heart rhythm. Will have her get an EKG which demonstrated extra APCs she also has some T-wave inversions. She did have a chest x-ray which I personally reviewed demonstrating increased cardiac silhouette compared to previous suggesting cardiomegaly. She does have a cardiology appointment soon. Will go ahead and request blood work including a brain atretic peptide cardiac enzymes and metabolic panel to make sure she has tolerating the diuresis. Based on now will decide to give her additional Lasix. She should also get some compression stockings. She is going to see a swimmer soon. From a pulmonary standpoint she did cough up some mucus although is clearing up based on all the antibiotics she is taking. However, she did noticing some red color in the sputum. She did have red lipstick on so is not clear if which is lipstick. She is going to keep him on the mucus phlegm. If it is more consistent with blood she will call the office. She does have a CT scan scheduled for February for her pulmonary nodules. We can always move that up sooner. I did talk to her about talking to her swimmer about getting an echocardiogram at this time. [facility] Medical History (Updated 01/26/24 @ 22:20 by Maulik Arrington MD) CHF (congestive heart failure) Anemia Anemia Descending thoracic aortic aneurysm Chronic heart failure with preserved ejection fraction (HFpEF) PAF (paroxysmal atrial fibrillation) Atherosclerotic cardiovascular disease Chronic respiratory failure Pneumonia Hemoptysis Bronchitis COPD (chronic obstructive pulmonary disease) Pulmonary nodule Social History (Updated 01/17/24 @ 21:46 by Archana Villalpando NP) Household Members: Spouse Housing: House Do you presently have visiting nurse or other home services: Yes (cleaning lady) Patient Tobacco Use Status: Former Tobacco user Tobacco use type: Cigarette Second Hand Smoke Exposure: No service: No Current occupational status: retired Review of Systems Const Reports fatigue, Denies malaise and Denies night sweats ENT Reports Normal hearing present, Denies change in voice, Denies lip swelling, Denies epistaxis, Denies mouth pain, Reports nasal congestion, Reports nasal discharge, Reports nasal obstruction, Reports post nasal drip, Reports sinus pain, Reports sinus pressure and Denies tongue swelling Card Denies chest pain, Reports dyspnea and Reports dyspnea on exertion Resp Reports chest congestion, Reports cough, Reports dyspnea and Reports dyspnea on exertion GI Denies abdominal pain Musc Denies no additional complaints Skin/Breast Denies rash Neuro Reports Normal hearing present and Denies Neuro-related abnormal movements Psych Denies no additional complaints Endo Reports fatigue Feliciano/Lymph Denies easy bleeding and Denies lymphadenopathy Aller/Immun Denies lip swelling and Denies tongue swelling Physical Exam Vital Signs: Last Vital Signs Pulse 89 01/26/24 11:04 Pulse Ox 88 L 01/26/24 11:04 Oxygen Delivery Method Room Air 01/26/24 11:04 BMI result Body Mass Index 28.7 Const General: cooperative Orientation/consciousness: patient oriented x3 Limitations: no limitations HEENT Head: Yes normal to inspection, Yes normocephalic and Yes atraumatic Ears: hearing grossly normal bilaterally and external ears normal Eyes General: appearance normal, both eyes and all related structures Eyelids: Yes eyelids normal Sclerae: sclerae normal EOM: EOMs intact bilaterally Neck Neck: Yes normal visual inspection and Yes no lymphadenopathy Lymphatic: no lymphadenopathy noted Chest Chest palpation & inspection: normal inspection of the chest Resp Other: wet cough during visit with rhonchi and expiratory wheezes throughout Effort & Inspection: able to speak in complete sentences Auscultation: no crackles, no wheezes and diminished lung sounds Cardio Jugular venous distension: no JVD Rate: regular rate Skin Other: warm, dry General skin exam: no rashes or lesions noted Neuro General: patient oriented x3 Cranial nerves: Yes Normal hearing present Cognition (Neuro): normal cognition Gait exam (Neuro): Normal gait present Extrem Other: 1+ pitting edema BLE Psych Appearance: grossly normal and well kempt Speech and movement: Normal speech and movement present and Clear speech present Affect: normal affect Attitude: cooperative Thought process: Normal thought process present Thought content: Normal thought content present Insight: Good insight present (Psych) Judgement: Good judgement present (Psych) Office Procedures EKG [id number], Complete Results Reviewed Results Reviewed: RUN: 01/26/242224 PAGE 1 [facility] [address] [place] [id number] Job Press Operator: Emmanuel Ozuna M.D. Specimen Inquiry Name: Monica Stewart Age/Sex: 83/F : 1940 Unit#: [id number] Attend Dr: Maulik Arrington MD Re01/26/24 Status: REG REF [facility] Disch: SPEC : [id number] TENZIN: 01/26/24 STATUS: COMP REQ : [id number] RECD: 01/26/[address]: Maulik Arrington MD COMP: 01/26/24 ENTERED: 01/26/24 [facility] DR: Fabiola Botello ORDERED: BNP Test Result Flag Reference BNP 592 H <100 pg/mL For those patients who are being treated with Natrecor (nesiritide, recombinant BNP), BNP testing should be performed at least two hours post treatment in order to ensure that only endogenous levels of BNP are detected. END OF REPORT RUN: 01/26/245 PAGE 1 [facility] [address] [place] [address] Job Press Operator: Emmanuel Ozuna M.D. Specimen Inquiry Name: Monica Stewart Age/Sex: 83/F [facility] 1940 [id number]#: [id number] Attend Dr: Maulik Arrington MD Re01/26/24 Status: REG REF [facility] Disch: SPEC : [id number] TENZIN: 01/26/24 STATUS: COMP REQ : [id number] RECD: 01/26/[address] [facility] [address]: Maulik Arrington MD COMP: 01/26/24 ENTERED: 01/26/24 [facility] DR: Fabiola Botello ORDERED: Troponin-I HS Test Result Flag Reference Troponin-I HS 23.9 H <3.5-17.0 ng/L [facility] high sensitivity Troponin-I results should be used in conjunction with other diagnostic information such as ECG, clinical observations and information, and patient symptoms to aid in the diagnosis of OR. END OF REPORT personally reviewed CXR with increase cardiac size, minimal atelectasis on the right, graph RUN: 01/26/240 PAGE 1 [facility] [address] [place] [address] Job Press Operator: Emmanuel Ozuna M.D. Specimen Inquiry Name: Monica Stewart Age/Sex: 83/F [facility] 1940 [id number]#: [id number] Attend Dr: Maulik Arrington MD Re01/26/24 Status: REG REF Location: [facility] Disch: SPEC : [id number] TENZIN: 01/26/24 STATUS: COMP REQ : [id number] RECD: 01/26/[address]: Maulik Arrington MD COMP: 01/26/24 ENTERED: 01/26/24-1232 [facility] DR: Fabiola Botello ORDERED: BMP Test Result Flag Reference Sodium 141 135-145 mmol/L Potassium 4.8 3.3-5.1 mmol/L CL 101 96-108 mmol/L CO2 32 H 22-29 mmol/L Gap 13 12-20 BUN 11 9-16 mg/dL Creat 0.62 0.5-1.4 mg/dL EGFR > 60 NOTE: For -Citizen Of [place] individuals, multiply the result by 1.210. Chronic Kidney Disease: Estimated GFR < 60 mL/min/1.73m2 Severe Kidney Disease: Estimated GFR < 15 mL/min/1.73m2 Glucose, Random 83 60-115 mg/dL CA 8.7 8.4-10.2 mg/dL END OF REPORT Assessment & Plan Assessment & Plan (1) Bronchitis: Code(s): J40 - Bronchitis, not specified as acute or chronic Category: Medical (2) Chronic respiratory failure: Code(s): J96.10 - Chronic respiratory failure, unspecified whether with hypoxia or hypercapnia Category: Medical Qualifiers: Respiratory failure complication: hypoxia Qualified Code(s): J96.11 - Chronic respiratory failure with hypoxia (3) COPD (chronic obstructive pulmonary disease): Code(s): J44.9 - Chronic obstructive pulmonary disease, unspecified Category: Medical Qualifiers: COPD type: emphysema Emphysema type: centrilobular Qualified Code(s): J43.2 - Centrilobular emphysema (4) Pulmonary nodule: Comment: Positive aspergilloma pathology Code(s): R91.1 - Solitary pulmonary nodule Category: Medical Plan: Status post resection consistent with aspergilloma. No evidence of any additional nodules on her last CT scan. (5) CHF (congestive heart failure): Comment: responded well to diuresis Code(s): I50.9 - Heart failure, unspecified Category: Medical Qualifiers: Heart failure chronicity: acute on chronic Heart failure type: unspecified Qualified Code(s): I50.9 - Heart failure, unspecified Plan EKG withT wave inversions, CXR with increase cardiac size Continue Stiolto daily QVAR Short-acting beta agonist as needed Continue oxygen supplementation with activity and during sleep repeat CT chest in February 2024 continue lasix 20 mg daily until f/u with cardiology monitor sputum for any blood follow-up in 6-8 weeks Orders: Orders Basic Metabolic Panel Today I50.9 - Heart failure, unspecified Complete Blood Count Auto Diff Today I50.9 - Heart failure, unspecified B Type Natriuretic Peptide Today I50.9 - Heart failure, unspecified Troponin-I High Sensitivity Today I50.9 - Heart failure, unspecified Coding Level of Care Code Est Pt Level 5 (84754) Diagnoses Bronchitis J40 Chronic respiratory failure with hypoxia J96.11 Respiratory failure complication: hypoxia Centrilobular emphysema J43.2 COPD type: emphysema Emphysema type: centrilobular Pulmonary nodule R91.1 Acute on chronic congestive heart failure, unspecified heart failure type I50.9 Heart failure chronicity: acute on chronic Heart failure type: unspecified CPT Codes EKG - CPT: 37907-[id number], Complete ([id number]) Time Spent (min) 45
== END 2024-01-26 11:59 | disposition home or self-care (01) ==
PROVIDERS: PCP Physician Assistant Medical; Visit Provider Hospitalist
DX: J40 Bronchitis, not specified as acute or chronic (principal); J96.11 Chronic respiratory failure with hypoxia; J43.2 Centrilobular emphysema; R91.1 Solitary pulmonary nodule; I50.9 Heart failure, unspecified
CPT/HCPCS: 93010; 99215

== ENCOUNTER 2024-01-26 11:01 | Outpatient (REF) | payer MEDICARE, OTHER, SELFPAY ==
[2024-01-26 12:47] LABS: MANUAL DIFF FLAG NO
[2024-01-26 14:05] LABS: Basophils Absolute Auto 0.1 X10*3/uL (0.0-0.2); Basophils Percent Auto 0.5 % (0-2); Eosinophils Absolute Auto 0.4 X10*3/uL (0.0-0.4); Eosinophils Percent Auto 4.1 % (0-4); Hematocrit 42.7 % (37.0-47.0); Hemoglobin 13.1 g/dl (12.0-16.0); Imm Gran Abs Auto 0.06 X10*3/uL (0.00-0.03); Imm Gran Pct Auto 0.6 % (0.0-0.4); Lymphocytes Absolute Auto 1.3 X10*3/uL (1.2-4.9); Lymphocytes Percent Auto 12.2 % (20-40); Mean Corpuscular HGB Conc 30.7 g/dl (31.0-35.0); Mean Corpuscular Hemoglobin 25.9 pg (27.0-33.0); Mean Corpuscular Volume 84.4 fL (80.0-98.0); Mean Platelet Volume 11.1 fL (9.4-12.3); Monocytes Absolute Auto 0.9 X10*3/uL (0.1-1.2); Monocytes Percent Auto 8.3 % (2-11); Neutrophils Absolute Auto 7.9 x10*3/uL (2.0-8.3); Neutrophils Percent Auto 74.3 % (45-73); Platelet Count 249 X10*3/uL (160-400); Red Blood Count 5.06 X10*6/uL (4.20-5.50); White Blood Count 10.7 X10*3/uL (4.8-10.8)
[2024-01-26 14:41] LABS: Anion Gap 13 (12-20); B Type Natriuretic Peptide 592 pg/mL (<100); Blood Urea Nitrogen 11 mg/dL (9-16); Calcium 8.7 mg/dL (8.4-10.2); Carbon Dioxide 32 mmol/L (22-29); Chloride 101 mmol/L (96-108); Estimated Glomerular Filt Rate > 60; Glucose Random 83 mg/dL (60-115); Potassium 4.8 mmol/L (3.3-5.1); Sodium 141 mmol/L (135-145)
[2024-01-26 14:49] LABS: Troponin-I High Sensitivity 23.9 ng/L (<3.5-17.0)
== END 2024-01-26 11:02 | disposition home or self-care (01) ==
LOC: HO.LAB 11:01
PROVIDERS: PCP Physician Assistant Medical; Visit Provider Hospitalist
DX: I50.9 Heart failure, unspecified (principal); J44.9 Chronic obstructive pulmonary disease, unspecified; J40 Bronchitis, not specified as acute or chronic; J96.11 Chronic respiratory failure with hypoxia; J34.2 Deviated nasal septum; R91.1 Solitary pulmonary nodule
CPT/HCPCS: 36415; 80048; 83880; 84484; 85025; 93005; 99212

== ENCOUNTER 2024-03-14 12:50 | Outpatient (REF) | payer MEDICARE, OTHER, SELFPAY ==
--- NOTE | ~2024-03-14 | CT_ITS ---
EXAMINATION: CT CHEST WITHOUT CONTRAST CLINICAL INFORMATION: Follow-up solitary pulmonary nodule. COMPARISON: 08/18/[address] 09/16/2020 CTPA. 01/17/2024 chest x-ray. TECHNIQUE: Multidetector volumetric CT imaging of the chest was done. Axial MIP volume rendering provided. Sagittal and coronal reformatted images were obtained. This CT examination was performed using dose optimization techniques as appropriate, variously including the following: *Automated exposure control *Adjustment of mA and/or kV according to patient size (this includes techniques or standardized protocols for targeted exams where dose is matched to indication/reason for exam; i.e. extremities or head) *Use of iterative reconstruction technique DLP: 241 mGy-cm Please note, due to [facility] contractual, systems, and staffing issues, an [facility] radiologist was not available for review and dictation of this case until 04/26/2024. FINDINGS: COATING ENGINEER: Tortuous uncoiled aorta with aortic stent graft in place arising from the mid aortic arch and terminating at the hiatus. Increased thoracic AP diameter. Chain sutures in the medial right apex suggesting prior wedge resection. Exaggerated thoracic kyphosis. PULMONARY NODULES: -Stable average diameter 8 mm stellate predominantly groundglass nodule in the posterior right upper lobe (series 5, image 141) unchanged from the previous when measured in similar fashion. -Numerous scattered pulmonary micronodules, some calcified, measuring 2-3 mm are again noted without change. -New 4 mm nodule right apex abutting the lateral suture line (series 5, image 87) not previously seen. LUNGS: -Jruuhmkf-[id number]-[id number] centrilobular emphysema is present. There is upper lobe predominance. -Suture line in the medial right apex from prior wedge resection. Associated mild scarring. -Generalized mosaic attenuation of the mid and lower lungs bilaterally, suggesting air trapping, unchanged from the prior exam. -Mild cylindrical bronchiectasis in the mid and lower lungs, without significant bronchial wall thickening or significant endobronchial filling defects. This is unchanged. -Trachea and main bronchi are patent. -No pleural effusion or pleural masses. No pneumothorax. MEDIASTINUM: -Stent graft present within the aorta extending from the mid aortic arch to the diaphragmatic hiatus. Ectasia of the aorta is unchanged from the prior exam. Ascending aorta measuring up to 4.1 cm, borderline aneurysmal. This is stable. The aorta is uncoiled and tortuous, as well as heavily calcified. -Mid descending aorta measures maximally 4.6 cm in transverse diameter, stable from the prior exam. -The main pulmonary artery is enlarged, suggesting pulmonary hypertension. It measures up to 4.4 cm in diameter (normal is less than 3.7 cm). -Heart size is mildly enlarged. There is dense calcification of the mitral annulus. There is calcification of the aortic annulus. There is a left atrial appendage occlusion device in place. There is no pericardial effusion. -Thyroid not visualized. -A few borderline enlarged precarinal lymph nodes and subcarinal nodes are stable without change. None are pathologically enlarged. -Esophagus is patulous. GE junction appears normal. CORONARY ARTERY CALCIFICATION: There are heavy 4 vessel calcifications. AXILLA/CHEST WALL: No masses or abnormal lymph nodes present. UPPER ABDOMEN: -Spleen is again noted to be partially calcified and nodular, suggesting prior splenic injury or splenosis. -Imaged abdominal aorta is ectatic and likely aneurysmal although the majority not included on today's imaging. -9 mm nonobstructing calculus in the inferior left kidney. 3 mm nonobstructing calculus just cephalad to this, 2 mm nonobstructing calculus in the left kidney apex. -3 nonobstructing calculi in the right kidney, the largest in the lower pole measuring 5 mm. -Herniorrhaphy clips in the anterior abdominal wall. OSSEOUS STRUCTURES: -No suspicious or blastic bone lesion. -Exaggerated thoracic kyphosis with moderate degenerative spondylosis. No compression deformities. Sclerotic endplate changes present T12-L1. Healed left rib fracture noted. CT/CT chest wo IV con IMPRESSION: 1. New 4 mm nodule right apex just lateral to the suture line. This is probably benign and six-month interval follow-up examination recommended, as per Fleischner guidelines. 2. Otherwise, stable scattered pulmonary nodules, many calcified, measuring 2 to 3 mm. 3. The index predominantly groundglass nodule in question in the right upper lobe measuring average diameter of 8 mm is unchanged on this examination, and hence becomes a benign abnormality. 4. Moderate to severe centrilobular pulmonary emphysema with regions of mosaic attenuation likely indicating air trapping. Mild cylindrical bronchiectasis in the mid and lower lungs. Prior wedge resection right upper lobe medially. 5. Aortic stent graft in place with stable aneurysmal dilatation when compared with 08/18/2023. 6. Heavy coronary calcifications. Mild cardiomegaly. Left atrial occlusion device in place. Heavy calcification of the mitral annulus. 7. Bilateral nonobstructing renal calculi measuring up to 9 mm in the left inferior pole. 8. Additional ancillary findings as discussed in the body the report. Fleischner guidelines were followed. Electronically signed by: Jarrett Mccann MD 04/26/2024 10:33 AM EDT
== END 2024-03-14 12:51 | disposition home or self-care (01) ==
LOC: HO.CT 12:50
PROVIDERS: PCP Physician Assistant Medical; Visit Provider Hospitalist
DX: R91.1 Solitary pulmonary nodule (principal)
CPT/HCPCS: 71250

== ENCOUNTER → 2024-03-14 12:52 | Outpatient (BNV) | payer MEDICARE, OTHER, SELFPAY | PROVIDERS: PCP Physician Assistant Medical; Visit Provider Radiology Diagnostic Radiology | DX: R91.1 Solitary pulmonary nodule (principal) | CPT/HCPCS: 71250 ==

== ENCOUNTER 2024-05-19 10:36 | Outpatient (AMB) | payer MEDICARE, OTHER, SELFPAY ==
--- NOTE | 2024-05-19 10:51 | MHC.OFFVIS ---
Vital Signs 05/19/24 10:52 Height 5 ft 4 in Weight 164 lb BMI 28.1 BP 128/60 Blood Pressure Location Lt brachial Position Sitting Pulse 89 Pulse Source Pulse Oximeter Pulse Oximetry (%) 97 Oxygen Delivery Method Room Air Comment 3 Liters Oxygen(Inogen One) Intake Visit Reasons: copd/pulmonary clearance Oceanographic Meteorologist Required: No Allergies Morphine Allergy (Severe, Uncoded 05/19/24 10:55) Vomiting Opiods Allergy (Severe, Uncoded 05/19/24 10:55) Vomiting percocet Allergy (Severe, Uncoded 05/19/24 10:55) Vomiting Percodan Allergy (Severe, Uncoded 05/19/24 10:55) Vomiting Tylenol #3 Allergy (Severe, Uncoded 05/19/24 10:55) Vomiting HPI Comments Details: The patient is a 83 y/o woman with a history of recurring pneumonia and now worsening respiratory symptoms. The last few weeks she underwent a colonoscopy after a positive colo-guard study. She did receive deep sedation. After she had a worsening cough and shortness of breath. She started Augmentin for 5 days and did feel better but then she stopped because that she had another procedure to have. She underwent lithotripsy of her kidney. In continued having worsening respiratory symptoms. She does have a Bentyl inhaler that was prescribed to her and she did use it seldomly. But now after the procedures she is having to use it more often. This morning she had to give herself 4 puffs. In the office today she was found to be significantly wheezy and she did receive a DuoNeb treatment improving her symptoms dramatically. She is concerned that she could have COPD. She is status post total knee replacement. Postoperatively she was admitted with heart failure to the hospital. She was placed on diuretics. She does have a murmur. She has not had an echo in some time. 07/27/2023 the patient is here for pulmonary follow-up visit. The patient still no better. She still complaining of some chest congestion. As far as the color of the mucus is kind little product merchandiser in color but still greenish in color. Moderate severity. She did complete a course of antibiotics but only partially improved her symptoms. She feels that she needs a longer course of Augmentin. Will go ahead and give her 21 days at this time to treated for superior airway disease. Although she may also have a component of sinusitis. The patient with probiotics. She also monitor closely for any GI symptoms. She continues use her nebulizer. She is expectorating well. We did send her to get a sputum culture and she did have 1 done at [facility] which showed normal andreas. 09/14/2023 the patient has a telehealth visit today. The patient is started developing fevers in addition to body aches. She needs sleep tested negative for COVID. Subsequently after that she was positive. The patient is already 3 days into her symptoms. She already had a bad experience with Paxlovid and was not interested in taking it. She is developing a congested cough with yellow phlegm. Moderate severity. She is using her nebulizer with some relief. denies any wheezing at this time. The patient will go ahead and start doxycycline to treat her for postviral bacterial infection. In the meantime the patient recently had a CT scan of the chest before she got sick. The pulmonary nodules have been stable along with her postoperative changes. The patient however has a new right upper lobe pulmonary nodule measuring 9 mm in size. I did review the images myself. It has smooth borders and iit is intermediate in size and therefore will follow-up with a CT scan in 6 months' time. 01/26/2024 the patient is here for a pulmonary follow-up visit. The patient did complete another course of antibiotics. She also was placed on diuretics. The diuresis has helped her significant edema and shortness of breath. She feels that she is doing better this time. She was concerned with some crepitations over the weekend. But ultimately did get better. She came in today she had an irregular heart rhythm. Will have her get an EKG which demonstrated extra APCs she also has some T-wave inversions. She did have a chest x-ray which I personally reviewed demonstrating increased cardiac silhouette compared to previous suggesting cardiomegaly. She does have a cardiology appointment soon. Will go ahead and request blood work including a brain atretic peptide cardiac enzymes and metabolic panel to make sure she has tolerating the diuresis. Based on now will decide to give her additional Lasix. She should also get some compression stockings. She is going to see a liquor tester soon. From a pulmonary standpoint she did cough up some mucus although is clearing up based on all the antibiotics she is taking. However, she did noticing some red color in the sputum. She did have red lipstick on so is not clear if which is lipstick. She is going to keep him on the mucus phlegm. If it is more consistent with blood she will call the office. She does have a CT scan scheduled for February for her pulmonary nodules. We can always move that up sooner. I did talk to her about talking to her liquor tester about getting an echocardiogram at this time. 05/19/2024 the patient is here for a pulmonary follow-up visit. Overall the patient has been doing okay. Recently she has been dealing with AFib. Is been tachy-madiha. She is status post Watchman procedure. Apparently she is going to undergo a cardioversion. She no longer needs anticoagulation because of Watchman procedure. Still has issues with low iron levels. She is not sure why her iron is going so low. In addition to that she is having significant pain from a kidney stone that is measuring around 8-9 mm in size. She is going to require lithotripsy for that 1. She will have that done actually prior to having the cardioversion. She continues use the oxygen supplementation with good effect. She does need to use the oxygen with activity. The patient did have a CT scan in 03/04/2024 which we personally reviewed. It appears that her pulmonary nodules are stable. Although she does have this ground glassy nodular density in the right hemithorax were monitoring. Currently is about a cm in size. Does not appear to be significantly different from her previous CT scan in August but still needs to be monitor. She has other pulmonary nodules that appear to be stable as well. [facility] Medical History (Updated 05/21/24 @ 21:17 by Maulik Arrington MD) CHF (congestive heart failure) Anemia Anemia Descending thoracic aortic aneurysm Chronic heart failure with preserved ejection fraction (HFpEF) PAF (paroxysmal atrial fibrillation) Atherosclerotic cardiovascular disease Chronic respiratory failure Pneumonia Hemoptysis Bronchitis COPD (chronic obstructive pulmonary disease) Pulmonary nodule Social History (Updated 01/17/24 @ 21:46 by Archana Villalpando NP) Household Members: Spouse Housing: House Do you presently have visiting nurse or other home services: Yes (cleaning lady) Patient Tobacco Use Status: Former Tobacco user Tobacco use type: Cigarette Second Hand Smoke Exposure: No service: No Current occupational status: retired Review of Systems Const Reports fatigue, Denies malaise and Denies night sweats ENT Reports Normal hearing present, Denies change in voice, Denies lip swelling, Denies epistaxis, Denies mouth pain, Reports nasal congestion, Reports nasal discharge, Reports nasal obstruction, Reports post nasal drip, Reports sinus pain, Reports sinus pressure and Denies tongue swelling Card Denies chest pain, Reports dyspnea and Reports dyspnea on exertion Resp Reports chest congestion, Reports cough, Reports dyspnea and Reports dyspnea on exertion GI Denies abdominal pain Musc Denies no additional complaints Skin/Breast Denies rash Neuro Reports Normal hearing present and Denies Neuro-related abnormal movements Psych Denies no additional complaints Endo Reports fatigue Feliciano/Lymph Denies easy bleeding and Denies lymphadenopathy Aller/Immun Denies lip swelling and Denies tongue swelling Physical Exam Vital Signs: Last Vital Signs Pulse 89 05/19/24 10:52 BP 128/60 05/19/24 10:52 Pulse Ox 97 05/19/24 10:52 Oxygen Delivery Method Room Air 05/19/24 10:52 BMI result Body Mass Index 28.1 Const General: cooperative Orientation/consciousness: patient oriented x3 Limitations: no limitations HEENT Head: Yes normal to inspection, Yes normocephalic and Yes atraumatic Ears: hearing grossly normal bilaterally and external ears normal Eyes General: appearance normal, both eyes and all related structures Eyelids: Yes eyelids normal Sclerae: sclerae normal EOM: EOMs intact bilaterally Neck Neck: Yes normal visual inspection and Yes no lymphadenopathy Lymphatic: no lymphadenopathy noted Chest Chest palpation & inspection: normal inspection of the chest Resp Other: wet cough during visit with rhonchi and expiratory wheezes throughout Effort & Inspection: able to speak in complete sentences Auscultation: no crackles, no wheezes and diminished lung sounds Cardio Jugular venous distension: no JVD Rate: regular rate Skin Other: warm, dry General skin exam: no rashes or lesions noted Neuro General: patient oriented x3 Cranial nerves: Yes Normal hearing present Cognition (Neuro): normal cognition Gait exam (Neuro): Normal gait present Extrem Other: 1+ pitting edema BLE Psych Appearance: grossly normal and well kempt Speech and movement: Normal speech and movement present and Clear speech present Affect: normal affect Attitude: cooperative Thought process: Normal thought process present Thought content: Normal thought content present Insight: Good insight present (Psych) Judgement: Good judgement present (Psych) Results Reviewed Results Reviewed: [id number] [place] [address] CT Scan Report Signed Patient: Monica Stewart MR#: [id number] : 1940 Acct:[id number] Age/Sex: 83 / F ADM Date: 03/14/24 Loc: HO.CT Attending Dr: Maulik Arrington MD Ordering Physician: Maulik Arrington MD Date of Service: 03/14/24 Procedure(s): CT chest wo IV con Accession Number(s): [id number] cc: Maulik Arrington MD; Fabiola Botello~ EXAMINATION: CT CHEST WITHOUT CONTRAST CLINICAL INFORMATION: Follow-up solitary pulmonary nodule. COMPARISON: 08/18/[address] 09/16/2020 CTPA. 01/17/2024 chest x-ray. TECHNIQUE: Multidetector volumetric CT imaging of the chest was done. Axial MIP volume rendering provided. Sagittal and coronal reformatted images were obtained. This CT examination was performed using dose optimization techniques as appropriate, variously including the following: *Automated exposure control *Adjustment of mA and/or kV according to patient size (this includes techniques or standardized protocols for targeted exams where dose is matched to indication/reason for exam; i.e. extremities or head) *Use of iterative reconstruction technique DLP: 241 mGy-cm Please note, due to [facility] contractual, systems, and staffing issues, an [facility] radiologist was not available for review and dictation of this case until 04/26/2024. FINDINGS: ACT TUTOR: Tortuous uncoiled aorta with aortic stent graft in place arising from the mid aortic arch and terminating at the hiatus. Increased thoracic AP diameter. Chain sutures in the medial right apex suggesting prior wedge resection. Exaggerated thoracic kyphosis. PULMONARY NODULES: -Stable average diameter 8 mm stellate predominantly groundglass nodule in the posterior right upper lobe (series 5, image 141) unchanged from the previous when measured in similar fashion. -Numerous scattered pulmonary micronodules, some calcified, measuring 2-3 mm are again noted without change. -New 4 mm nodule right apex abutting the lateral suture line (series 5, image 87) not previously seen. LUNGS: -Vbvewvlj-id-niudxu centrilobular emphysema is present. There is upper lobe predominance. -Suture line in the medial right apex from prior wedge resection. Associated mild scarring. -Generalized mosaic attenuation of the mid and lower lungs bilaterally, suggesting air trapping, unchanged from the prior exam. -Mild cylindrical bronchiectasis in the mid and lower lungs, without significant bronchial wall thickening or significant endobronchial filling defects. This is unchanged. -Trachea and main bronchi are patent. -No pleural effusion or pleural masses. No pneumothorax. MEDIASTINUM: -Stent graft present within the aorta extending from the mid aortic arch to the diaphragmatic hiatus. Ectasia of the aorta is unchanged from the prior exam. Ascending aorta measuring up to 4.1 cm, borderline aneurysmal. This is stable. The aorta is uncoiled and tortuous, as well as heavily calcified. -Mid descending aorta measures maximally 4.6 cm in transverse diameter, stable from the prior exam. -The main pulmonary artery is enlarged, suggesting pulmonary hypertension. It measures up to 4.4 cm in diameter (normal is less than 3.7 cm). -Heart size is mildly enlarged. There is dense calcification of the mitral annulus. There is calcification of the aortic annulus. There is a left atrial appendage occlusion device in place. There is no pericardial effusion. -Thyroid not visualized. -A few borderline enlarged precarinal lymph nodes and subcarinal nodes are stable without change. None are pathologically enlarged. -Esophagus is patulous. GE junction appears normal. CORONARY ARTERY CALCIFICATION: There are heavy 4 vessel calcifications. AXILLA/CHEST WALL: No masses or abnormal lymph nodes present. UPPER ABDOMEN: -Spleen is again noted to be partially calcified and nodular, suggesting prior splenic injury or splenosis. -Imaged abdominal aorta is ectatic and likely aneurysmal although the majority not included on today's imaging. -9 mm nonobstructing calculus in the inferior left kidney. 3 mm nonobstructing calculus just cephalad to this, 2 mm nonobstructing calculus in the left kidney apex. -3 nonobstructing calculi in the right kidney, the largest in the lower pole measuring 5 mm. -Herniorrhaphy clips in the anterior abdominal wall. OSSEOUS STRUCTURES: -No suspicious or blastic bone lesion. -Exaggerated thoracic kyphosis with moderate degenerative spondylosis. No compression deformities. Sclerotic endplate changes present T12-L1. Healed left rib fracture noted. CT/CT chest wo IV con IMPRESSION: 1. New 4 mm nodule right apex just lateral to the suture line. This is probably benign and six-month interval follow-up examination recommended, as per Fleischner guidelines. 2. Otherwise, stable scattered pulmonary nodules, many calcified, measuring 2 to 3 mm. 3. The index predominantly groundglass nodule in question in the right upper lobe measuring average diameter of 8 mm is unchanged on this examination, and hence becomes a benign abnormality. 4. Moderate to severe centrilobular pulmonary emphysema with regions of mosaic attenuation likely indicating air trapping. Mild cylindrical bronchiectasis in the mid and lower lungs. Prior wedge resection right upper lobe medially. 5. Aortic stent graft in place with stable aneurysmal dilatation when compared with 08/18/2023. 6. Heavy coronary calcifications. Mild cardiomegaly. Left atrial occlusion device in place. Heavy calcification of the mitral annulus. 7. Bilateral nonobstructing renal calculi measuring up to 9 mm in the left inferior pole. 8. Additional ancillary findings as discussed in the body the report. Fleischner guidelines were followed. 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 Assessment & Plan (1) Bronchitis: Code(s): J40 - Bronchitis, not specified as acute or chronic Category: Medical (2) Chronic respiratory failure: Code(s): J96.10 - Chronic respiratory failure, unspecified whether with hypoxia or hypercapnia Category: Medical Qualifiers: Respiratory failure complication: hypoxia Qualified Code(s): J96.11 - Chronic respiratory failure with hypoxia (3) COPD (chronic obstructive pulmonary disease): Code(s): J44.9 - Chronic obstructive pulmonary disease, unspecified Category: Medical Qualifiers: COPD type: emphysema Emphysema type: centrilobular Qualified Code(s): J43.2 - Centrilobular emphysema (4) Pulmonary nodule: Comment: Positive aspergilloma pathology, new 4mm nodule Code(s): R91.1 - Solitary pulmonary nodule Category: Medical Plan: Status post resection consistent with aspergilloma. No evidence of any additional nodules on her last CT scan. (5) CHF (congestive heart failure): Comment: responded well to diuresis Code(s): I50.9 - Heart failure, unspecified Category: Medical Qualifiers: Heart failure chronicity: acute on chronic Heart failure type: unspecified Qualified Code(s): I50.9 - Heart failure, unspecified Plan Continue Stiolto daily QVAR Short-acting beta agonist as needed Continue oxygen supplementation with activity and during sleep repeat CT chest in February 2025 continue lasix 20 mg daily until f/u with cardiology monitor sputum for any blood follow-up in 4-6 months Medications: Refilled Ventolin HFA 90 mcg/actuation (albuterol sulfate) 2 puffs inhalation Q4H PRN 18 grams 8RF Respiratory Distress NS Coding Level of Care Code Est Pt Level 4 (77053) Complex EM visit Add On G2211 Diagnoses Bronchitis J40 Chronic respiratory failure with hypoxia J96.11 Respiratory failure complication: hypoxia Centrilobular emphysema J43.2 COPD type: emphysema Emphysema type: centrilobular Pulmonary nodule R91.1 Acute on chronic congestive heart failure, unspecified heart failure type I50.9 Heart failure chronicity: acute on chronic Heart failure type: unspecified Time Spent (min) 20
[2024-05-19 10:52] VITALS: BP 128/60; PULSE 89; O2SAT 97; BMI 28.1
== END 2024-05-19 11:13 | disposition home or self-care (01) ==
PROVIDERS: PCP Physician Assistant Medical; Visit Provider Hospitalist
DX: J40 Bronchitis, not specified as acute or chronic (principal); J96.11 Chronic respiratory failure with hypoxia; J43.2 Centrilobular emphysema; R91.1 Solitary pulmonary nodule; I50.9 Heart failure, unspecified
CPT/HCPCS: 99214; G2211

== ENCOUNTER → 2024-05-19 10:36 | Outpatient (BNVA) | payer MEDICARE, OTHER, SELFPAY | PROVIDERS: PCP Physician Assistant Medical; Visit Provider Hospitalist | DX: J40 Bronchitis, not specified as acute or chronic (principal); J43.2 Centrilobular emphysema; J96.11 Chronic respiratory failure with hypoxia; R91.1 Solitary pulmonary nodule; I50.9 Heart failure, unspecified; I48.91 Unspecified atrial fibrillation; Z87.891 Personal history of nicotine dependence | CPT/HCPCS: 99212 ==